=== PATIENT | male | born 1960 | race African-American/Black ===

== ENCOUNTER 2017-06-06 15:58 | Inpatient (IN) | payer MEDICARE, OTHER ==
[2017-06-06 16:20] VITALS: BMI 34.8
[2017-06-06] MEDS ORDERED: SODIUM CHLORIDE 1,000 ML IV STA ×3 (16:33→18:28)
--- NOTE | 2017-06-06 16:34 | PDOC ---
History of Present Illness - General Chief Complaint: Blood Sugar Problem Stated Complaint: BLOOD SUGAR PROBLEM Time Seen by Provider: 06/06/17 16:18 - History of Present Illness Initial Comments: 06/06/17 16:46 The patient is a 56 year old male with a history of DM who presents for evaluation of high blood sugar. The patient reports that he has not been taking his metformin over the past week and noted increased thirst and frequent urination over the past 2 days. He states that he was experiencing generalized weakness today prompting his presentation to the ED for evaluation. He was noted to have a blood sugar above range in triage here in the ED. He denies any history of DKA or similar symptoms in the past. He denies fevers, chills, SOB, chest pain, nausea, vomiting, abdominal pain, or changes with bowel movements. Past History - Past Medical History Allergies/Adverse Reactions: Allergies Allergy/AdvReac Type Severity Reaction Status Date / Time No Known Allergies Allergy Verified 06/06/17 16:17 Home Medications: Ambulatory Orders Unobtainable [Unobtainable] 06/06/17 COPD: No Diabetes: Yes Seizures: Yes - Suicide/Smoking/Psychosocial Hx Smoking History: Never smoked Have you smoked in the past 12 months: No Hx Alcohol Use: No Drug/Substance Use Hx: No Substance Use Type: None Review of Systems - Review of Systems Comments:: 06/06/17 16:49 Constitutional: Fatigue. Increased thirst. No fevers, chills, malaise HEENT: No Rhinorrhea, nasal congestion, visual changes Cardiovascular: No chest pain, syncope, palpitations, lightheadedness Respiratory: No Cough, SOB, Hemoptysis, Gastrointestinal: No Abdominal pain, Nausea, Vomiting, Constipation, Diarrhea, Melena Genitourinary: Increased frequency. No Dysuria, Urgency, Hesitancy, Hematuria, Flank pain Musculoskeletal: No Myalgia, arthralgia Skin: No rashes, itching, bruising, pallor Neurologic: No Headache, Dizziness, Numbness, Weakness, or Tingling Psychiatric: No Hallucinations. No SI or HI *Physical Exam - Vital Signs Last Vital Signs Temp Pulse Resp BP Pulse Ox 98.3 F 113 H 22 148/89 95 06/06/17 16:17 06/06/17 16:17 06/06/17 16:17 06/06/17 16:17 06/06/17 16:17 - Physical Exam Comments: 06/06/17 16:51 General Appearance: Nourished. No Apparent Distress HEENT: Dry mucus membranes. No Pharyngeal Erythema, Tonsillar Exudate, Tonsillar Erythema Neck: No Cervical Lymphadenopathy Respiratory/Chest: Lungs Clear, Normal Breath Sounds. No Crackles, Rales, Rhonchi, Wheezing Cardiovascular: Regular Rhythm, Regular Rate. No Murmur, Gallops, Rubs Gastrointestinal/Abdominal: Normal Bowel Sounds, Soft. No Guarding, Rebound, Tenderness Musculoskeletal: No CVA Tenderness Extremity: Normal Capillary Refill Integumentary: Normal Color, Dry, Warm Neurologic: Fully Oriented, Alert, Normal Mood/Affect, Normal Response Heart Score/ECG Review #1 ECG reviewed & interpreted by me at: 20:29 General ECG Interpretation: Sinus Rhythm, Normal Rate, Normal Intervals, No acute ischemic changes ED Treatment Course - LABORATORY CBC & Chemistry Diagram: 06/06/17 17:00 06/06/17 17:00 Medical Decision Making - Medical Decision Making 06/06/17 16:51 The patient is a 56 year old male with a history of DM who presents for evaluation of high blood sugar. Differential includes but is not limited to: DKA, HHS, Hyperglycemia, infectious, metabolic derangement. Given the patient' s history, it is likely his symptoms are due to hyperglycemia from medication non-compliance. We will obtain a cbc, cmp, troponin, acetone, ua, vbg to evaluate further. We will treat with iv fluids in the meantime and continue to monitor and reassess. 06/06/17 18:40 CBC is unremarkable. CMP demonstrates a glucose of 1300s with a sodium of 121 however sodium is normal when corrected for the extreme hyperglycemia. The patient's symptoms are likely due to HHS and we will continue to treat with iv fluids as well as begin with a 10 unit insulin push. We discussed the case with the hospitalist team who accepted the patient for admission. The patient is stable and does not demonstrate any signs of DKA or AMS. We discussed the results and the plan with the patient who voiced understanding and is agreeable with the plan. *DC/Admit/Observation/Transfer Diagnosis at time of Disposition: Hyperglycemia - Discharge Dispostion Condition at time of disposition: Stable Admit: Yes - Referrals - Patient Instructions - Post Discharge Activity
[2017-06-06 17:14] LABS: BASO % 0.4 % (0-2.0); EOS % 0.2 % (0-4.5); HEMATOCRIT 50.9 % (35.4-49); HEMOGLOBIN 16.2 GM/dL (11.7-16.9); LYMPH % 18.2 % (8-40); MCH 30.4 pg (25.7-33.7); MCHC 31.7 g/dl (32.0-35.9); MEAN CELL VOLUME 95.9 fl (80-96); MEAN PLT VOLUME 9.8 fl (7.5-11.1); MONO % 8.4 % (3.8-10.2); NEUT % 72.8 % (42.8-82.8); PLATELET COUNT 180 K/MM3 (134-434); RBC 5.31 M/mm3 (4.00-5.60); RDW 15.1 % (11.9-15.9); WHITE BLOOD COUNT 4.9 K/mm3 (4.0-10.0)
[2017-06-06 17:16] LABS: VENOUS PC02 32.6 mmHg (38-52); VENOUS PH 7.38 (7.32-7.42)
[2017-06-06 17:49] LABS: ANION GAP 10 (8-16); BILIRUBIN,TOTAL 0.9 mg/dL (0.2-1.0); BLOOD UREA NITROGEN 18 mg/dL (7-18); CHLORIDE 90 mmol/L (98-107); CO2 21 mmol/L (21-32); CREATININE 2.3 mg/dL (0.7-1.3); POTASSIUM 5.3 mmol/L (3.5-5.1); SGOT/AST 18 U/L (15-37); SGPT/ALT 30 U/L (12-78); TOT PROT 7.2 g/dl (6.4-8.2)
[2017-06-06 17:51] LABS: ALK PHOS 186 U/L (45-117)
[2017-06-06 18:08] LABS: GLUCOSE,RANDOM 1334 mg/dL (74-106); SODIUM 121 mmol/L (136-145)
[2017-06-06] MEDS ORDERED: INSULIN REGULAR HUMAN 100 UNITS/ML *VIAL IVPUSH ONE (18:27)
[2017-06-06] MEDS ORDERED: INSULIN REGULAR HUMAN 100 UNITS/ML *VIAL ONE (18:39)
--- NOTE | 2017-06-06 19:57 | PDOC ---
Attending Attestation - Resident Resident Name: KimmyPuneetCooper - ED Attending Attestation I have performed the following: I have examined & evaluated the patient, The case was reviewed & discussed with the resident, I agree w/resident's findings & plan, Exceptions are as noted - HPI HPI: 06/06/17 19:54 56 yo p/w hyperglycemia, he is not in any acute distress,he is not complaint with his medications head ncat eyes poly eomi neck supple cvs tachycardia lungs cta b/l abd nontender extremities no cellulitis neuro axox3 ,ambulatory skin warm and dry peych appropriate 06/07/17 02:44 - Physicial Exam PE: 06/07/17 02:43 please see physical exam above 06/07/17 02:51 - Medical Decision Making 06/07/17 02:52 56 yo male with hyperosmolar hyperglycemic state admitted
--- NOTE | 2017-06-06 20:47 | HP ---
CHIEF COMPLAINT: increased thirst, urination PCP: Henrietta Estrada HISTORY OF PRESENT ILLNESS: This is a 56 year old male with a significant past medical history of DM who reports that he has not been taking his metformin for "a while" who presented to the ED with a 2 day history of increased thirst and frequent urination. He developed generalized weakness today which prompted him to come to the ED. ER course was notable for: (1) glucose 1334 (2) Creatinine 2.3 Recent Travel: pt denies PAST MEDICAL HISTORY: DM, seizure disorder, asthma PAST SURGICAL HISTORY: pt denies Social History: Smoking: pt denies Alcohol: pt denies Drugs: pt denies Family History: mother age 50, lupus vasculitis father in his 70s, liver CA one brother, unknown if medical problems Allergies No Known Allergies Allergy (Verified 06/06/17 16:17) Home Medications 3 Medication Instructions Recorded Carbamazepine [Tegretol -] 200 mg PO TID 06/06/17 Ipratropium/Albuterol Sulfate 4 gm IH QID PRN 06/06/17 [Combivent Respimat Inhal [place]] Metformin HCl [Glucophage] 0 mg PO DAILY 06/06/17 Salmeterol/Fluticasone [Advair 1 inh IH BID 06/06/17 500Mcg/50Mcg -] REVIEW OF SYSTEMS CONSTITUTIONAL: Present: generalized weakness, malaise Absent: fever, chills, diaphoresis, loss of appetite, weight change HEENT: Absent: rhinorrhea, nasal congestion, throat pain, throat swelling, difficulty swallowing, mouth swelling, ear pain, eye pain, visual changes CARDIOVASCULAR: Absent: chest pain, syncope, palpitations, irregular heart rate, lightheadedness , peripheral edema RESPIRATORY: Absent: cough, shortness of breath, dyspnea with exertion, orthopnea, wheezing, stridor, hemoptysis GASTROINTESTINAL: Absent: abdominal pain, abdominal distension, nausea, vomiting, diarrhea, constipation, melena, hematochezia GENITOURINARY: Present: frequency Absent: dysuria, urgency, hesitancy, hematuria, flank pain, genital pain MUSCULOSKELETAL: Absent: myalgia, arthralgia, joint swelling, back pain, neck pain SKIN: Absent: rash, itching, pallor HEMATOLOGIC/IMMUNOLOGIC: Absent: easy bleeding, easy bruising, lymphadenopathy, frequent infections ENDOCRINE: Present: Polydypsia Absent: unexplained weight gain, unexplained weight loss, heat intolerance, cold intolerance NEUROLOGIC: Absent: headache, focal weakness or paresthesias, dizziness, unsteady gait, seizure, mental status changes, bladder or bowel incontinence PSYCHIATRIC: Absent: anxiety, depression, suicidal or homicidal ideation, hallucinations. PHYSICAL EXAMINATION Vital Signs - 24 hr 3 06/06/17 06/06/17 06/06/17 16:17 18:20 19:35 Temperature 98.3 F Pulse Rate 113 H Pulse Rate [ 97 H 88 Radial] Respiratory 22 22 22 Rate Blood Pressure 148/89 Blood Pressure 163/104 130/90 [Right Arm] O2 Sat by Pulse 95 97 95 Oximetry (%) GENERAL: Awake, alert, and fully oriented, in no acute distress. HEAD: Normal with no signs of trauma. EYES: Pupils equal, round and reactive to light, extraocular movements intact, sclera anicteric, conjunctiva clear. No lid lag. EARS, NOSE, THROAT: Ears normal, nares patent, oropharynx clear without exudates. Moist mucous membranes. NECK: Normal range of motion, supple without lymphadenopathy, JVD, or masses. LUNGS: Breath sounds equal, clear to auscultation bilaterally. No wheezes, and no crackles. No accessory muscle use. HEART: Regular rate and rhythm, normal S1 and S2 without murmur, rub or gallop. ABDOMEN: Soft, nontender, not distended, normoactive bowel sounds, no guarding, no rebound, no masses. No hepatomegaly or splenomegaly. MUSCULOSKELETAL: Normal range of motion at all joints. No bony deformities or tenderness. No CVA tenderness. UPPER EXTREMITIES: 2+ pulses, warm, well-perfused. No cyanosis. No clubbing. No peripheral edema. LOWER EXTREMITIES: 2+ pulses, warm, well-perfused. No calf tenderness. No peripheral edema. NEUROLOGICAL: Cranial nerves II-XII intact. Normal speech. Normal gait. PSYCHIATRIC: Cooperative. Good eye contact. Appropriate mood and affect. SKIN: Warm, dry, normal turgor, no rashes or lesions noted, normal capillary refill. Laboratory Results - last 24 hr 3 06/06/17 06/06/17 06/06/17 16:41 16:41 17:00 WBC 4.9 RBC 5.31 Hgb 16.2 Hct 50.9 H MCV 95.9 MCH 30.4 MCHC 31.7 L RDW 15.1 Plt Count 180 MPV 9.8 Neutrophils % 72.8 Lymphocytes % 18.2 Monocytes % 8.4 Eosinophils % 0.2 Basophils % 0.4 VBG pH 7.38 POC VBG pCO2 32.6 L POC VBG pO2 107.0 H Mixed VBG HCO3 18.9 L Sodium Potassium Chloride Carbon Dioxide Anion Gap BUN Creatinine Creat Clearance w eGFR Random Glucose Calcium Total Bilirubin AST ALT Alkaline Phosphatase Creatine Kinase Creatine Kinase Index CK-MB (CK-2) Troponin I Total Protein Albumin Acetone, Qual Positive small 1+ ASSESSMENT/PLAN: 56yM with PMH DM, Seizure, asthma presented to the ED with polydypsia, increased urinary frequency and generalized weakness. Hyperosmolar hyperglycemic state - received 3L NS in ed, 10 reg insulin IVP - BGM now revealed "HI", check BMP - 1/2 NS @ 250cc/hr - repeat K, if less than 5, add 20mEq KCl to fluids - novolog 10u SC now, repeat BGM in 2 hours, if still "hi" repeat BMP - if not responding to insulin SC, transfer to ICU for insulin drip - hold meal until sugar below 400 seizure - continue home tegretol asthma - home respimat combivent changed to formulary duoneb - home advair changed to formulary symbicort DVT PPX - heparin 5000u TID FEN - 1/2NS @ 250cc/hr, reassess with next BGM/BMP - BMP in 2h if BGM still hi - diabetic diet when BGM less than 400. Dispo: Pt currently requires inpatient management of his emergent condition. Hospitalist Screening - Colonoscopy Questionnaire Colonoscopy Questionnaire: Colonoscopy Questionnaire
[2017-06-06] MEDS ORDERED: ALBUTEROL SO4 2.5/IPRATROPIUM 0.5 INH SOL 3 ML VIAL.NEB. NEB PRN (20:57)
[2017-06-06] MEDS ORDERED: SODIUM CHLORIDE 1,000 ML IV SCH (21:00)
[2017-06-06] MEDS ORDERED: INSULIN (NOVOLOG) ASPART 100 UNITS/ML 10ML VIAL SQ ONE (21:00)
[2017-06-06] MEDS ORDERED: SODIUM CHLORIDE 0.45% 1,000 ML IV SCH (21:15)
[2017-06-06 21:40] LABS: ANION GAP 9 (8-16); BLOOD UREA NITROGEN 15 mg/dL (7-18); CHLORIDE 98 mmol/L (98-107); CO2 22 mmol/L (21-32); CREATININE 1.9 mg/dL (0.7-1.3); SODIUM 129 mmol/L (136-145)
[2017-06-06 21:42] LABS: POTASSIUM 4.8 mmol/L (3.5-5.1)
[2017-06-06 21:44] LABS: GLUCOSE,RANDOM 848 mg/dL (74-106)
[2017-06-06] MEDS ORDERED: SODIUM CHLORIDE 0.45%/POT 20 MEQ/1,000 ML INFUS.BAG IV SCH (22:00)
[2017-06-06] MEDS: POTASSIUM CHLORIDE 20 MEQ in SODIUM CHLORIDE 0.45% 1,000 ML IVPB SCH (23:32)
[2017-06-06] MEDS: carBAMazepine 200 MG TABLET PO SCH (23:32)
[2017-06-06] MEDS: BUDESONIDE/FORMETEROL FUMARATE 160/4.5 mcg INHALER IH SCH (23:32)
[2017-06-07] MEDS ORDERED: INSULIN (NOVOLOG) ASPART 100 UNITS/ML 10ML VIAL SQ ONE ×2 (00:23→02:38)
[2017-06-07 00:50] LABS: ANION GAP 12 (8-16); BLOOD UREA NITROGEN 13 mg/dL (7-18); CALCIUM 8.6 mg/dL (8.5-10.1); CHLORIDE 99 mmol/L (98-107); CO2 23 mmol/L (21-32); CREATININE 1.4 mg/dL (0.7-1.3); POTASSIUM 4.2 mmol/L (3.5-5.1); SODIUM 134 mmol/L (136-145)
[2017-06-07 00:58] LABS: GLUCOSE,RANDOM 516 mg/dL (74-106)
[2017-06-07] MEDS: POTASSIUM CHLORIDE 20 MEQ in SODIUM CHLORIDE 0.45% 1,000 ML IVPB SCH ×4 (03:33→22:53)
[2017-06-07] MEDS ORDERED: POTASSIUM CHLORIDE 20 MEQ in SODIUM CHLORIDE 0.45% 1,000 ML IVPB SCH (05:09)
[2017-06-07] MEDS: HEPARIN NA (PORCINE) 5,000 UNITS/ML 1ML VIAL SQ SCH ×3 (06:40→23:05)
[2017-06-07] MEDS: carBAMazepine 200 MG TABLET PO SCH ×4 (06:41→23:30)
[2017-06-07 07:14] LABS: BASO % 0.7 % (0-2.0); EOS % 1.5 % (0-4.5); HEMATOCRIT 47.5 % (35.4-49); HEMOGLOBIN 15.8 GM/dL (11.7-16.9); LYMPH % 43.4 % (8-40); MCH 30.1 pg (25.7-33.7); MCHC 33.3 g/dl (32.0-35.9); MEAN CELL VOLUME 90.5 fl (80-96); NEUT % 45.4 % (42.8-82.8); PLATELET COUNT 175 K/MM3 (134-434); RBC 5.25 M/mm3 (4.00-5.60); RDW 14.6 % (11.9-15.9); WHITE BLOOD COUNT 7.9 K/mm3 (4.0-10.0)
[2017-06-07 07:28] LABS: ANION GAP 11 (8-16); BLOOD UREA NITROGEN 11 mg/dL (7-18); CALCIUM 8.2 mg/dL (8.5-10.1); CHLORIDE 105 mmol/L (98-107); CO2 24 mmol/L (21-32); CREATININE 1.1 mg/dL (0.7-1.3); GLUCOSE,RANDOM 147 mg/dL (74-106); MAGNESIUM 2.2 mg/dL (1.8-2.4); PHOSPHOROUS 2.9 mg/dL (2.5-4.9); POTASSIUM 3.7 mmol/L (3.5-5.1); SODIUM 140 mmol/L (136-145)
--- NOTE | 2017-06-07 08:41 | PN ---
Progress Note, Physician History of Present Illness: POOR COMPLIANCE WITH DIET AND MEDS - Current Medication List Current Medications: Active Medications Albuterol/Ipratropium (Duoneb -) 1 amp NEB Q6H PRN PRN Reason: WHEEZING Budesonide/Formoterol Fumarate (Symbicort 160/4.5mcg -) 2 puff IH BID [facility] Last Admin: 06/06/17 23:32 Dose: 2 puff Carbamazepine (Tegretol -) 200 mg PO TID [facility] Last Admin: 06/07/17 06:41 Dose: 200 mg Heparin Sodium (Porcine) (Heparin -) 5,000 unit SQ TID [facility] Last Admin: 06/07/17 06:40 Dose: 5,000 unit Potassium Chloride 20 meq/ (Sodium Chloride) 1,010 mls @ 125 mls/hr IVPB Q8H [facility] Last Admin: 06/07/17 05:45 Dose: Not Given Insulin Aspart (Novolog Vial Sliding Scale -) 1 vial SQ HS [facility] PRN Reason: Protocol Insulin Aspart (Novolog Vial Sliding Scale -) 1 vial SQ TIDAC [facility] PRN Reason: Protocol Insulin Detemir (Levemir Vial) 5 units SQ BID@0700,2200 [facility] - Objective Vital Signs: Vital Signs Temperature 98.6 F 06/07/17 06:00 Pulse Rate 82 06/07/17 06:00 Respiratory Rate 18 06/07/17 06:00 Blood Pressure 140/80 06/07/17 06:00 O2 Sat by Pulse Oximetry (%) 99 06/06/17 21:00 Cardiovascular: Yes: Regular Rate and Rhythm Respiratory: Yes: Regular, CTA Bilaterally Gastrointestinal: Yes: Normal Bowel Sounds, Soft Labs: CBC, BMP 06/07/17 06:35 06/07/17 06:35 Problem List - Problems (1) Diabetes Assessment/Plan: POOR CONTROL DUE TO NONCOMPLIANCE INSULIN WITH SS ENDO DIET Code(s): E11.9 - TYPE 2 DIABETES MELLITUS WITHOUT COMPLICATIONS (2) Acute kidney injury Assessment/Plan: IMPROVING WITH HYDRATION FOLLOW LABS Code(s): N17.9 - ACUTE KIDNEY FAILURE, UNSPECIFIED (3) Hyperglycemia Assessment/Plan: ABOVE Code(s): R73.9 - HYPERGLYCEMIA, UNSPECIFIED
[2017-06-07] MEDS: INSULIN DETEMIR 100 UNITS/ML MDV SQ SCH ×2 (08:49→23:05)
[2017-06-07] MEDS: BUDESONIDE/FORMETEROL FUMARATE 160/4.5 mcg INHALER IH SCH ×2 (09:30→23:06)
--- NOTE | 2017-06-07 10:33 | EKG ---
Test Reason : Blood Pressure : / mmHG Vent. Rate : 074 BPM Atrial Rate : 074 BPM P-R Int : 184 ms QRS Dur : 092 ms QT Int : 410 ms P-R-T Axes : 051 003 032 degrees QTc Int : 455 ms NORMAL SINUS RHYTHM INFERIOR INFARCT (CITED ON OR BEFORE 06-JUN-2017) ABNORMAL ECG WHEN COMPARED WITH ECG OF 06-JUN-2017 18:03, BORDERLINE CRITERIA FOR ANTERIOR INFARCT ARE NO LONGER PRESENT NONSPECIFIC T WAVE ABNORMALITY NOW EVIDENT IN LATERAL LEADS Confirmed by KATY ALCANTAR, TERRI ([id number]) on 06/07/2017 10:33:05 AM Referred By: DEBBY CARBONE Confirmed By:TERRI BURNS MD
--- NOTE | 2017-06-07 11:40 | EKG ---
Test Reason : Blood Pressure : / mmHG Vent. Rate : 100 BPM Atrial Rate : 100 BPM P-R Int : 198 ms QRS Dur : 104 ms QT Int : 364 ms P-R-T Axes : 043 -09 019 degrees QTc Int : 469 ms NORMAL SINUS RHYTHM POSSIBLE LEFT ATRIAL ENLARGEMENT INFERIOR INFARCT , AGE UNDETERMINED POSSIBLE ANTERIOR INFARCT , AGE UNDETERMINED ABNORMAL ECG NO PREVIOUS ECGS AVAILABLE Confirmed by TERRI BURNS MD ([id number]) on 06/07/2017 11:40:23 AM Referred By: Confirmed By:TERRI BURNS MD
[2017-06-07 11:42] LABS: CHOLESTEROL 101 mg/dL (50-200); TRIGLYCERIDES 223 mg/dL (35-160)
[2017-06-07 11:45] LABS: HDL CHOLESTEROL 25 mg/dL (40-60); LDL CHOLESTEROL (ONLY SJRH) 57 mg/dL (5-100)
[2017-06-07] MEDS: INSULIN SLIDING SCALE (NOVOLOG) 1 VIAL SQ SCH ×3 (12:06→23:06)
[2017-06-07] MEDS ORDERED: PT OWN MED DRAWER 7, Y5N ONE ×2 (13:45→22:03)
--- NOTE | 2017-06-07 23:47 | CONSULT ---
Consult Consult Specialty:: endocrine Referred by:: dr.[email or web address] perales Reason for Consultation:: diabetes mellitus [place] - History of Present Illness Chief Complaint: high blood sugars History of Present Illness: 56 year old male with a history of DM who presents for evaluation of high blood sugar. The patient reports that he has not been taking his metformin over the past week and noted increased thirst and frequent urination over the past 2 days. He states that he was experiencing generalized weakness today prompting to present to er for help.found to have very high sugars,requiring iv fluid and rehydration as well as insulin therapy,he denies nausea or vomiting - History Source History Provided By: Patient - Alcohol/Substance Use Hx Alcohol Use: No - Smoking History Smoking history: Never smoked Have you smoked in the past 12 months: No Home Medications - Allergies Allergies/Adverse Reactions: Allergies Allergy/AdvReac Type Severity Reaction Status Date / Time No Known Allergies Allergy Verified 06/06/17 16:17 - Home Medications Home Medications: Ambulatory Orders Carbamazepine [Tegretol -] 200 mg PO TID 06/06/17 Ipratropium/Albuterol Sulfate [Combivent Respimat Inhal [place]] 4 gm IH QID PRN 06/06/17 Metformin HCl [Glucophage] 0 mg PO DAILY 06/06/17 Salmeterol/Fluticasone [Advair 500Mcg/50Mcg -] 1 inh IH BID 06/06/17 Review of Systems - Review of Systems Constitutional: reports: Lethargy, Weakness Eyes: reports: Blurred Vision HENT: reports: Throat Pain Neck: reports: No Symptoms Cardiovascular: reports: Shortness of Breath Respiratory: reports: Exercise Intolerance, SOB on Exertion Gastrointestinal: reports: Bloating Genitourinary: reports: No Symptoms Breasts: reports: No Symptoms Reported Musculoskeletal: reports: No Symptoms Integumentary: reports: No Symptoms Neurological: reports: No Symptoms Endocrine: reports: Unexplained Weight Gain Physical Exam Vital Signs: Vital Signs Temperature 98.6 F 06/07/17 20:44 Pulse Rate 81 06/07/17 20:44 Respiratory Rate 18 06/07/17 20:44 Blood Pressure 152/94 06/07/17 20:44 O2 Sat by Pulse Oximetry (%) 97 06/07/17 20:43 Constitutional: Yes: Anxious Eyes: Yes: EOM Intact HENT: Yes: Normocephalic Neck: Yes: Trachea Midline Cardiovascular: Yes: Regular Rate and Rhythm Respiratory: Yes: CTA Bilaterally Gastrointestinal: Yes: Normal Bowel Sounds ...Rectal Exam: Yes: Deferred Renal/: Yes: WNL Breast(s): Yes: WNL Musculoskeletal: Yes: WNL Extremities: Yes: WNL Integumentary: Yes: WNL Neurological: Yes: Alert, Oriented Labs: CBC, BMP 06/07/17 06:35 06/07/17 06:35 Problem List - Problems (1) Diabetes Code(s): E11.9 - TYPE 2 DIABETES MELLITUS WITHOUT COMPLICATIONS Qualifiers: Diabetes mellitus complication status: with circulatory complication (2) Hyperglycemia Code(s): R73.9 - HYPERGLYCEMIA, UNSPECIFIED (3) Knee sprain Code(s): S83.90XA - SPRAIN OF UNSPECIFIED SITE OF UNSPECIFIED KNEE, INIT ENCNTR Assessment/Plan Current Active Problems Acute kidney injury (Acute) Diabetes (Acute) Hyperglycemia (Acute) n[place]os dehydration Abnormal Lab Results 06/06/17 06/06/17 06/07/17 23:30 23:30 06:35 Lymphocytes % 43.4 H D Sodium 134 L Creatinine 1.4 H D Random Glucose 526 H* D 516 H* Hemoglobin A1c % Calcium Triglycerides HDL Cholesterol 06/07/17 06/07/17 06:35 06:35 Lymphocytes % Sodium Creatinine Random Glucose 147 H D Hemoglobin A1c % 9.5 H Calcium 8.2 L Triglycerides 223 H HDL Cholesterol 25 L Laboratory Results - last 24 hr 06/06/17 06/06/17 06/06/17 16:33 19:27 20:29 WBC RBC Hgb Hct MCV MCH MCHC RDW Plt Count MPV Neutrophils % Lymphocytes % Monocytes % Eosinophils % Basophils % Sodium Potassium Chloride Carbon Dioxide Anion Gap BUN Creatinine POC Glucometer > 400 > 400 > 600 Random Glucose Hemoglobin A1c % Calcium Phosphorus Magnesium Creatine Kinase Creatine Kinase Index CK-MB (CK-2) Troponin I Triglycerides Cholesterol Total LDL Cholesterol HDL Cholesterol Acetone, Qual 06/06/17 06/06/17 06/07/17 23:30 23:30 02:34 WBC RBC Hgb Hct MCV MCH MCHC RDW Plt Count MPV Neutrophils % Lymphocytes % Monocytes % Eosinophils % Basophils % Sodium 134 L Potassium 4.2 Chloride 99 Carbon Dioxide 23 Anion Gap 12 BUN 13 Creatinine 1.4 H D POC Glucometer 355 Random Glucose 526 H* D 516 H* Hemoglobin A1c % Calcium 8.6 Phosphorus Magnesium Creatine Kinase Creatine Kinase Index CK-MB (CK-2) Troponin I Triglycerides Cholesterol Total LDL Cholesterol HDL Cholesterol Acetone, Qual 06/07/17 06/07/17 06/07/17 05:00 06:35 06:35 WBC 7.9 D RBC 5.25 Hgb 15.8 Hct 47.5 MCV 90.5 MCH 30.1 MCHC 33.3 RDW 14.6 Plt Count 175 MPV 9.0 Neutrophils % 45.4 D Lymphocytes % 43.4 H D Monocytes % 9.0 Eosinophils % 1.5 D Basophils % 0.7 Sodium 140 Potassium 3.7 Chloride 105 Carbon Dioxide 24 Anion Gap 11 BUN 11 Creatinine 1.1 D POC Glucometer 167 Random Glucose 147 H D Hemoglobin A1c % Calcium 8.2 L Phosphorus 2.9 Magnesium 2.2 Creatine Kinase 287 Creatine Kinase Index 0.9 CK-MB (CK-2) 2.748 Troponin I < 0.02 Triglycerides 223 H Cholesterol 101 Total LDL Cholesterol 57 HDL Cholesterol 25 L Acetone, Qual 06/07/17 06/07/17 06/07/17 06:35 06:43 09:00 WBC RBC Hgb Hct MCV MCH MCHC RDW Plt Count MPV Neutrophils % Lymphocytes % Monocytes % Eosinophils % Basophils % Sodium Potassium Chloride Carbon Dioxide Anion Gap BUN Creatinine POC Glucometer 141 Random Glucose Hemoglobin A1c % 9.5 H Calcium Phosphorus Magnesium Creatine Kinase Cancelled Creatine Kinase Index CK-MB (CK-2) Troponin I Cancelled Triglycerides Cancelled Cholesterol Cancelled Total LDL Cholesterol Cancelled HDL Cholesterol Cancelled Acetone, Qual Negative 06/07/17 06/07/17 06/07/17 11:03 17:24 23:03 WBC RBC Hgb Hct MCV MCH MCHC RDW Plt Count MPV Neutrophils % Lymphocytes % Monocytes % Eosinophils % Basophils % Sodium Potassium Chloride Carbon Dioxide Anion Gap BUN Creatinine POC Glucometer 226 380 366 Random Glucose Hemoglobin A1c % Calcium Phosphorus Magnesium Creatine Kinase Creatine Kinase Index CK-MB (CK-2) Troponin I Triglycerides Cholesterol Total LDL Cholesterol HDL Cholesterol Acetone, Qual plan: diet nutrition consult metformin 850mg bid januvia 100mg daily levemir 25 units daily bgm qid novolog ss
[2017-06-08] MEDS: POTASSIUM CHLORIDE 20 MEQ in SODIUM CHLORIDE 0.45% 1,000 ML IVPB SCH ×3 (06:28→21:11)
[2017-06-08] MEDS: HEPARIN NA (PORCINE) 5,000 UNITS/ML 1ML VIAL SQ SCH ×3 (06:30→21:16)
[2017-06-08] MEDS: INSULIN DETEMIR 100 UNITS/ML MDV SQ SCH ×2 (06:31→21:16)
[2017-06-08] MEDS: sitaGLIPtin PHOSPHATE 100 MG TABLET (FP) PO SCH (06:33)
[2017-06-08] MEDS: INSULIN SLIDING SCALE (NOVOLOG) 1 VIAL SQ SCH ×4 (06:33→21:16)
[2017-06-08 06:35] LABS: BASO % 0.8 % (0-2.0); EOS % 4.2 % (0-4.5); HEMATOCRIT 44.2 % (35.4-49); HEMOGLOBIN 15.1 GM/dL (11.7-16.9); LYMPH % 47.3 % (8-40); MCH 30.9 pg (25.7-33.7); MCHC 34.1 g/dl (32.0-35.9); MEAN CELL VOLUME 90.6 fl (80-96); MEAN PLT VOLUME 9.5 fl (7.5-11.1); MONO % 6.7 % (3.8-10.2); PLATELET COUNT 158 K/MM3 (134-434); RBC 4.87 M/mm3 (4.00-5.60); RDW 14.3 % (11.9-15.9); WHITE BLOOD COUNT 5.5 K/mm3 (4.0-10.0)
[2017-06-08 06:57] LABS: ALBUMIN 3.5 g/dl (3.4-5.0); ANION GAP 12 (8-16); BLOOD UREA NITROGEN 13 mg/dL (7-18); CALCIUM 8.4 mg/dL (8.5-10.1); CHLORIDE 103 mmol/L (98-107); CO2 22 mmol/L (21-32); CREATININE 1.1 mg/dL (0.7-1.3); GLUCOSE,RANDOM 239 mg/dL (74-106); SGOT/AST 26 U/L (15-37); SGPT/ALT 27 U/L (12-78); SODIUM 137 mmol/L (136-145)
[2017-06-08 06:59] LABS: ALK PHOS 117 U/L (45-117); BILIRUBIN,TOTAL 0.7 mg/dL (0.2-1.0); TOT PROT 6.6 g/dl (6.4-8.2)
--- NOTE | 2017-06-08 08:50 | PN ---
Progress Note, Physician - Current Medication List Current Medications: Active Medications Albuterol/Ipratropium (Duoneb -) 1 amp NEB Q6H PRN PRN Reason: WHEEZING Budesonide/Formoterol Fumarate (Symbicort 160/4.5mcg -) 2 puff IH BID [facility] Last Admin: 06/07/17 23:06 Dose: 2 puff Carbamazepine (Tegretol -) 200 mg PO TID [facility] Last Admin: 06/07/17 23:30 Dose: 200 mg Heparin Sodium (Porcine) (Heparin -) 5,000 unit SQ TID [facility] Last Admin: 06/08/17 06:30 Dose: 5,000 unit Potassium Chloride 20 meq/ (Sodium Chloride) 1,010 mls @ 125 mls/hr IVPB Q8H [facility] Last Admin: 06/08/17 06:28 Dose: Not Given Insulin Aspart (Novolog Vial Sliding Scale -) 1 vial SQ HS [facility] PRN Reason: Protocol Last Admin: 06/07/17 23:06 Dose: 6 units Insulin Aspart (Novolog Vial Sliding Scale -) 1 vial SQ TIDAC [facility] PRN Reason: Protocol Last Admin: 06/08/17 06:33 Dose: 3 units Insulin Detemir (Levemir Vial) 20 units SQ BID@0700,2200 [facility] Last Admin: 06/08/17 06:31 Dose: 20 units Metformin HCl (Glucophage -) 850 mg PO BID@0700,1630 [facility] Last Admin: 06/08/17 06:30 Dose: 850 mg Sitagliptin Phosphate (Januvia -) 100 mg PO DAILY@0700 [facility] Last Admin: 06/08/17 06:33 Dose: 100 mg - Objective Vital Signs: Vital Signs Temperature 97.3 F L 06/08/17 02:44 Pulse Rate 78 06/08/17 06:00 Respiratory Rate 18 06/08/17 06:00 Blood Pressure 140/92 06/08/17 06:00 O2 Sat by Pulse Oximetry (%) 97 06/07/17 20:43 Cardiovascular: Yes: Regular Rate and Rhythm Respiratory: Yes: Regular, CTA Bilaterally Gastrointestinal: Yes: Normal Bowel Sounds, Soft Labs: CBC, BMP 06/08/17 06:05 06/08/17 06:05 Problem List - Problems (1) Diabetes Assessment/Plan: POOR CONTROL DUE TO NONCOMPLIANCE INSULIN WITH SS ENDO DIET DIABETIC TEACHING Code(s): E11.9 - TYPE 2 DIABETES MELLITUS WITHOUT COMPLICATIONS Qualifiers: Diabetes mellitus complication status: with circulatory complication (2) Acute kidney injury Assessment/Plan: IMPROVING WITH HYDRATION FOLLOW LABS Code(s): N17.9 - ACUTE KIDNEY FAILURE, UNSPECIFIED (3) Hyperglycemia Assessment/Plan: ABOVE Code(s): R73.9 - HYPERGLYCEMIA, UNSPECIFIED (4) Abnormal EKG Assessment/Plan: ECHO CARDIO Code(s): R94.31 - ABNORMAL ELECTROCARDIOGRAM [ECG] [EKG]
[2017-06-08] MEDS ORDERED: PT OWN MED DRAWER 7, Y5N ONE (09:32)
[2017-06-08] MEDS: BUDESONIDE/FORMETEROL FUMARATE 160/4.5 mcg INHALER IH SCH ×2 (09:34→21:20)
[2017-06-08] MEDS: carBAMazepine 200 MG TABLET PO SCH ×2 (14:49→21:16)
[2017-06-08] MEDS ORDERED: INSULIN (NOVOLOG) ASPART 100 UNITS/ML 10ML VIAL ONE (14:56)
--- NOTE | 2017-06-08 16:29 | CON.CARD ---
Consult Consult Specialty:: Cardiology Consult Reason for Consultation:: Abnormal EKG - History of Present Illness Chief Complaint: High sugars History of Present Illness: This is a 56 year old male with a PMH of DM, HTN, and seizure disorder. He presents now with generalized weakness, increased thirst and frequent urination over the past 2 days. Of note, he stated to me that he jogs 3 miles daily. EKG 06/07/17 - NSR at 74 BPM with normal intervals, normal axis, and NSSTTW changes. There are inferior Q-waves noted. Echocardiogram 06/08/17 - Normal LV size and function. Normal RV size and function. The EF is 73%. No significant valvular abnormalities. - Alcohol/Substance Use Hx Alcohol Use: No - Smoking History Smoking history: Never smoked Have you smoked in the past 12 months: No Home Medications - Allergies Allergies/Adverse Reactions: Allergies Allergy/AdvReac Type Severity Reaction Status Date / Time No Known Allergies Allergy Verified 06/06/17 16:17 - Home Medications Home Medications: Ambulatory Orders Carbamazepine [Tegretol -] 200 mg PO TID 06/06/17 Ipratropium/Albuterol Sulfate [Combivent Respimat Inhal [place]] 4 gm IH QID PRN 06/06/17 Metformin HCl [Glucophage] 0 mg PO DAILY 06/06/17 Salmeterol/Fluticasone [Advair 500Mcg/50Mcg -] 1 inh IH BID 06/06/17 Review of Systems Findings/Remarks: As per HPI Vital Signs: Vital Signs Temperature 98.3 F 06/08/17 10:00 Pulse Rate 78 06/08/17 10:00 Respiratory Rate 20 06/08/17 10:00 Blood Pressure 132/80 06/08/17 10:00 O2 Sat by Pulse Oximetry (%) 97 06/08/17 09:00 Constitutional: Yes: Well Nourished Neck: Yes: WNL Respiratory: Yes: CTA Bilaterally Gastrointestinal: Yes: Soft Cardiovascular: Yes: Regular Rate and Rhythm (NL S1S2, no MRHG) JVD: No Extremities: Yes: WNL Edema: No Edema: RLE: Trace Neurological: Yes: Alert, Oriented (Non focal) - Other Data Labs, Other Data: CBC, BMP 06/08/17 06:05 06/08/17 06:05 Assessment/Plan Cardiovascular By history, he jogs 3 miles daily without cardiac symptoms. His echocardiogram shows a normal with normal LV and RV size and function. His EKG does have a somewhat prominent Q-wave in lead III, but less significant Q-waves in II and aVF. Given his lack of cardiac symptoms and normal echocardiogram, no further inpatient cardiac testing is needed at this time. Would consider outpatient stress testing when stable from a blood glucose standpoint.
[2017-06-09] MEDS: POTASSIUM CHLORIDE 20 MEQ in SODIUM CHLORIDE 0.45% 1,000 ML IVPB SCH (06:42)
[2017-06-09] MEDS: HEPARIN NA (PORCINE) 5,000 UNITS/ML 1ML VIAL SQ SCH (06:52)
[2017-06-09] MEDS: sitaGLIPtin PHOSPHATE 100 MG TABLET (FP) PO SCH (06:53)
[2017-06-09] MEDS: carBAMazepine 200 MG TABLET PO SCH (06:53)
[2017-06-09] MEDS: INSULIN SLIDING SCALE (NOVOLOG) 1 VIAL SQ SCH ×2 (06:53→12:16)
[2017-06-09] MEDS ORDERED: INSULIN DETEMIR 100 UNITS/ML MDV SQ SCH ×2 (07:00→07:09)
[2017-06-09] MEDS: BUDESONIDE/FORMETEROL FUMARATE 160/4.5 mcg INHALER IH SCH (09:20)
--- NOTE | 2017-06-09 10:59 | DS ---
Physical Examination Vital Signs: Vital Signs Temperature 97.8 F 06/09/17 05:58 Pulse Rate 74 06/09/17 05:58 Respiratory Rate 20 06/09/17 05:58 Blood Pressure 107/57 06/09/17 05:58 O2 Sat by Pulse Oximetry (%) 97 06/08/17 21:00 Cardiovascular: Yes: Regular Rate and Rhythm Respiratory: Yes: Regular, CTA Bilaterally Gastrointestinal: Yes: Normal Bowel Sounds, Soft Labs: CBC, BMP 06/08/17 06:05 06/08/17 06:05 Discharge Summary Reason For Visit: HYPERGLYCEMIA Current Active Problems Abnormal EKG (Acute) Acute kidney injury (Acute) Diabetes (Acute) Hyperglycemia (Acute) Hospital Course: HISTORY OF PRESENT ILLNESS: This is a 56 year old male with a significant past medical history of DM who reports that he has not been taking his metformin for "a while" who presented to the ED with a 2 day history of increased thirst and frequent urination. He developed generalized weakness today which prompted him to come to the ED. ER course was notable for: (1) glucose 1334 (2) Creatinine 2.3 Recent Travel: pt denies PAST MEDICAL HISTORY: DM, seizure disorder, asthma PAST SURGICAL HISTORY: pt denies Social History: Smoking: pt denies Alcohol: pt denies Drugs: pt denies Family History: mother age 50, lupus vasculitis father in his 70s, liver CA one brother, unknown if medical problems - Problems (1) Diabetes Assessment/Plan: POOR CONTROL DUE TO NONCOMPLIANCE--now better control INSULIN WITH SS ENDO DIET DIABETIC TEACHING Code(s): E11.9 - TYPE 2 DIABETES MELLITUS WITHOUT COMPLICATIONS Qualifiers: Diabetes mellitus complication status: with circulatory complication (2) Acute kidney injury Assessment/Plan: IMPROVING WITH HYDRATION FOLLOW LABS Code(s): N17.9 - ACUTE KIDNEY FAILURE, UNSPECIFIED (3) Hyperglycemia Assessment/Plan: ABOVE Code(s): R73.9 - HYPERGLYCEMIA, UNSPECIFIED (4) Abnormal EKG Assessment/Plan: ECHO CARDIO By history, he jogs 3 miles daily without cardiac symptoms. His echocardiogram shows a normal with normal LV and RV size and function. His EKG does have a somewhat prominent Q-wave in lead III, but less significant Q-waves in II and aVF. Given his lack of cardiac symptoms and normal echocardiogram, no further inpatient cardiac testing is needed at this time. Would consider outpatient stress testing when stable from a blood glucose standpoint. Code(s): R94.31 - ABNORMAL ELECTROCARDIOGRAM [ECG] [EKG] Condition: Stable - Instructions Referrals: Mc Estrada MD, [Primary Care Provider] - 1 Week Disposition: HOME - Home Medications Comprehensive Discharge Medication List: Ambulatory Orders Carbamazepine [Tegretol -] 200 mg PO TID 06/06/17 Ipratropium/Albuterol Sulfate [Combivent Respimat Inhal [place]] 4 gm IH QID PRN 06/06/17 Salmeterol/Fluticasone [Advair 500Mcg/50Mcg -] 1 inh IH BID 06/06/17 Insulin (Levemir) [Levemir Vial] 28 units SQ BID@0700,2200 #5 syringe 06/09/17 Sitagliptin Phosphate [Januvia -] 100 mg PO DAILY@0700 #30 ud 06/09/17 metFORMIN HCL [Glucophage -] 850 mg PO BID@0700,1630 #60 tablet 06/09/17
[2017-06-09 12:33] LABS: ALBUMIN 3.5 g/dl (3.4-5.0); ALK PHOS 113 U/L (45-117); ANION GAP 12 (8-16); BILIRUBIN,TOTAL 0.5 mg/dL (0.2-1.0); BLOOD UREA NITROGEN 17 mg/dL (7-18); CALCIUM 9.1 mg/dL (8.5-10.1); CHLORIDE 102 mmol/L (98-107); CO2 23 mmol/L (21-32); CREATININE 1.2 mg/dL (0.7-1.3); GLUCOSE,RANDOM 191 mg/dL (74-106); POTASSIUM 3.9 mmol/L (3.5-5.1); SGOT/AST 26 U/L (15-37); SGPT/ALT 29 U/L (12-78); SODIUM 137 mmol/L (136-145); TOT PROT 7.1 g/dl (6.4-8.2)
[2017-06-09 14:11] VITALS: BP 142/88; PULSE 79; TEMP 98.6
== END 2017-06-09 16:00 | disposition home or self-care (01) | DRG 637 ==
LOC: JER 15:58 → JERBED 18:34 → J4W 20:51
PROVIDERS: ADMIT Internal Medicine; ATTEND Family Medicine
DX: E11.65 Type 2 diabetes mellitus with hyperglycemia (principal); E11.00 Type 2 diabetes mellitus with hyperosmolarity without nonketotic hyperglycemic-hyperosmolar coma (NKHHC); N17.9 Acute kidney failure, unspecified; E87.1 Hypo-osmolality and hyponatremia; G40.89 Other seizures; I10 Essential (primary) hypertension; Z79.84 Long term (current) use of oral hypoglycemic drugs; Z91.14 Patient's other noncompliance with medication regimen; J45.909 Unspecified asthma, uncomplicated; E86.0 Dehydration; R94.31 Abnormal electrocardiogram [ECG] [EKG]
CPT/HCPCS: 36415; 80048; 80053; 80061; 82009; 82550; 82553; 82803; 82947; 82962; 83036; 83721; 83735; 84100; 84484; 85025; 93005; 93010; 93306-TC; 99285-25; J1644

== ENCOUNTER 2018-07-14 00:03 | Emergency (ER) | payer MEDICARE, OTHER ==
--- NOTE | 2018-07-14 00:27 | PDOC ---
History of Present Illness - General Stated Complaint: RIGHT ARM TINGLING Time Seen by Provider: 07/14/18 00:27 History Source: Patient Exam Limitations: No Limitations - History of Present Illness Initial Comments: 07/14/18 00:28 57 year old with a history of HTN, epilepsy (tegretol), DM,HLD, hypothyroidism who presents with 1 week of R arm tingling onset worsening 2-3 hours before arrival and associated with diaphoresis. The patient reports that he has been writing a lot and he is right handed. He denies any chest pain, shortness of breath, facial droop, recent illness or fever. Patient reports that his symptoms have been improving. He has no other complaints at bedside. 07/14/18 01:37 NIH Stroke Scale - Last Known Well Date/Time & Onset Date Last Known Well: 07/09/18 Time Last Known Well: 12:00 - Initial Evaluation Level of consciousness: Alert Ask patient the month and their age: Answers both correctly Ask patient to open & close eyes; make fist and let go: Obeys both correctly Best gaze (horizontal eye movement): Normal Visual field testing: No visual field loss Facial paresis (Show teeth/raise eyebrows/close eyes tight): Normal symmetrical movement Motor Function: Left Arm: Normal Motor Function: Right Arm: Normal (extends arm 90 (or 45) degrees for 10 seconds without drift Motor Function: Left Leg: Normal (extends leg 30 degrees for 5 seconds without drift) Motor Function: Right Leg: Normal (extends leg 30 degrees for 5 seconds without drift) Limb Ataxia: No ataxia Sensory(Use pinprick test arms,legs,trunk,face/side to side): Normal Best language (Describe picture, name items, read sentences): No Aphasia Dysarthria (read several words): Normal articulation Extinction and Inattention: No abnormality - Total Score NIH Stroke Scale Score: 0 Past History - Past Medical History Allergies/Adverse Reactions: Allergies Allergy/AdvReac Type Severity Reaction Status Date / Time No Known Allergies Allergy Verified 07/14/18 00:38 Home Medications: Ambulatory Orders Carbamazepine [Tegretol -] 200 mg PO TID 06/06/17 Ipratropium/Albuterol Sulfate [Combivent Respimat 20-100 Mcg] 4 gm IH QID PRN Salmeterol/Fluticasone [Advair 500Mcg/50Mcg -] 1 inh IH BID 06/06/17 Insulin (Levemir) [Levemir Vial] 28 units SQ BID@0700,2200 #5 syringe 06/09/17 Sitagliptin Phosphate [Januvia -] 100 mg PO DAILY@0700 #30 ud 06/09/17 metFORMIN HCL [Glucophage -] 850 mg PO BID@0700,1630 #60 tablet 06/09/17 Anemia: No Asthma: No Cancer: No Cardiac Disorders: No CVA: No COPD: No CHF: No Dementia: No Diabetes: Yes GI Disorders: No Disorders: No HTN: Yes Hypercholesterolemia: Yes Liver Disease: No Seizures: Yes Thyroid Disease: No - Surgical History Abdominal Surgery: No Appendectomy: No Cardiac Surgery: No Cholecystectomy: No Lung Surgery: No Neurologic Surgery: No Orthopedic Surgery: No - Suicide/Smoking/Psychosocial Hx Smoking History: Never smoked Have you smoked in the past 12 months: No Hx Alcohol Use: No Drug/Substance Use Hx: No Substance Use Type: None Hx Substance Use Treatment: No Review of Systems - Review of Systems Able to Perform ROS?: Yes Is the patient limited Occitan proficient: No Constitutional: No: Chills, Diaphoresis, Fever HEENTM: No: Blurred Vision, Tinnitus Respiratory: No: Cough, Orthopnea, Shortness of Breath Cardiac (ROS): No: Chest Pain, Lightheadedness, Palpitations, Syncope ABD/GI: No: Constipated, Diarrhea, Nausea, Vomiting : No: Burning, Dysuria, Hematuria, Incontinence Musculoskeletal: No: Back Pain, Neck Pain Neurological: Yes: Numbness, Tingling. No: Headache *Physical Exam - Physical Exam Comments: 07/14/18 01:21 GENERAL: Awake, alert, and fully oriented, in no acute distress HEAD: No signs of trauma, normocephalic, atraumatic EYES: EOMI, sclera anicteric, conjunctiva clear ENT: oropharynx clear without exudates. Moist mucosa NECK: Normal ROM, supple LUNGS: No distress, speaks full sentences, clear to auscultation bilaterally HEART: Regular rate and rhythm, normal S1 and S2, no murmurs, rubs or gallops, peripheral pulses normal and equal bilaterally. ABDOMEN: Soft, nontender, normoactive bowel sounds. No guarding, no rebound. No masses EXTREMITIES : Normal inspection, Normal range of motion, no edema. No clubbing or cyanosis. negative tinels and phalens test NEUROLOGICAL: Cranial nerves II through XII grossly intact. Normal speech, no focal sensorimotor deficits SKIN: Warm, Dry, normal turgor, no rashes or lesions noted ED Treatment Course - LABORATORY CBC & Chemistry Diagram: 07/14/18 01:37 07/14/18 01:10 Medical Decision Making - Medical Decision Making 07/14/18 01:19 57 year old with a history of HTN, epilepsy (tegretol), DM,HLD, hypothyroidism who presents with 1 week of R arm tingling onset worsening 2-3 hours before arrival and associated with diaphoresis. The patient reports that he has been writing a lot and he is right handed. ED Course: r/o acs vs cva consider carpal tunnel 07/14/18 01:22 EKG: normal sinus rhythm HR 72, no interval abnormalities, narrow QRS, ST and T wave segments and morphology normal. 07/14/18 02:23 cbc, cmp, trop, cxr 07/14/18 05:03 CT negative \ d/c f/u neurolohy *DC/Admit/Observation/Transfer Diagnosis at time of Disposition: Peripheral neuropathy - Discharge Dispostion Disposition: HOME Condition at time of disposition: Stable Decision to Admit order: No - Referrals Referrals: Mc Estrada MD, MD [Primary Care Provider] - Paul Finley MD [Staff Physician] - - Patient Instructions Printed Discharge Instructions: DI for Peripheral Neuropathy Additional Instructions: You were seen in the ED for R arm tingling. You were evaluated labwork and imaging which did not show significant findings. You are advised to see your PCP within 1 week You have a referral for neurology and are advised to follow up in 1 week. Return to the ED immediately if you have worsening symptoms, muscle weakness, pain, chest pain, shortness of breath, or loss of consciousness. - Post Discharge Activity
--- NOTE | 2018-07-14 00:40 | PDOC ---
Attending Attestation - HPI HPI: 07/14/18 01:50 The patient is a 57 year old male, with a significant PMH of HTN, epilepsy ( tegretol), DM,HLD, hypothyroidism who presents to the emergency department today for evaluation of worsening right arm tingling and numbness, onset 1 week. 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 He notes that the pain was at its worse 2 hours before coming into the ED but have been getting better. Patient denies any other complaints. The patient denies chest pain, shortness of breath, headache and dizziness. Denies fever, chills, nausea, vomit, diarrhea and constipation. Denies dysuria, frequency, urgency and hematuria. Allergies: NKA Social history: No reported PCP: Dr. Estrada <Bina Griffin - Last Filed: 07/14/18 01:50> - Resident Resident Name: Chrissie Ventura - ED Attending Attestation I have performed the following: I have examined & evaluated the patient, The case was reviewed & discussed with the resident, I agree w/resident's findings & plan - Physicial Exam PE: 07/14/18 05:03 Agree with resident exam - Medical Decision Making 07/14/18 05:03 Patient Name: SKYLER CA THIS IS A PRELIMINARY REPORT FROM [facility] [facility] DATE OF SERVICE: 2018-07-14 04:08:19 IMAGES: 294 EXAM: CT CERVICAL SPINE CT W/O CONTR HISTORY: Concern for fracture COMPARISON: None. FINDINGS: Vertebral bodies appear normal with no fracture There is mild straightening of the normal lordotic curvature. There are mild degenerative changes with posterior osteophyte on the left at C4-C5 Airway is intact Soft Tissues are normal Pulmonary apices are normal IMPRESSION: Mild degenerative changes with no cervical spine fracture One or more of the following dose reduction techniques were used: automated 07/14/18 05:03 All labs normal; cardiac enzymes normal 07/14/18 20:43 Pt's arm tingling is not cardiac; pt has no severe cervical degeneration or pathology causing the right arm numbness/tingling. Pt will be discharged home with neuro follow up. <Karen Jimenez - Last Filed: 07/14/18 20:45> Attestations - Attestations 07/14/18 01:50 Documentation prepared by Bina Borsellino, acting as medical review specialist for Karen Jimenez MD. <Bina Griffin - Last Filed: 07/14/18 01:50>
[2018-07-14 01:01] VITALS: TEMP 98.1; BMI 86.0
[2018-07-14 01:43] LABS: BASO % 1.1 % (0-2.0); EOS % 4.8 % (0-4.5); HEMATOCRIT 47.1 % (35.4-49); HEMOGLOBIN 15.7 GM/dL (11.7-16.9); LYMPH % 41.9 % (8-40); MCH 30.6 pg (25.7-33.7); MCHC 33.3 g/dl (32.0-35.9); MEAN CELL VOLUME 91.8 fl (80-96); MEAN PLT VOLUME 8.1 fl (7.5-11.1); MONO % 8.7 % (3.8-10.2); NEUT % 43.5 % (42.8-82.8); PLATELET COUNT 202 K/MM3 (134-434); RBC 5.14 M/mm3 (4.00-5.60); RDW 13.8 % (11.9-15.9); WHITE BLOOD COUNT 8.2 K/mm3 (4.0-10.0)
[2018-07-14 03:03] LABS: ALBUMIN 3.8 g/dl (3.4-5.0); ALK PHOS 91 U/L (45-117); ANION GAP 7 MMOL/L (8-16); BILIRUBIN,TOTAL 0.2 mg/dL (0.2-1); BLOOD UREA NITROGEN 16 mg/dL (7-18); CALCIUM 8.6 mg/dL (8.5-10.1); CHLORIDE 107 mmol/L (98-107); CO2 24 mmol/L (21-32); CREATININE 1.3 mg/dL (0.55-1.3); GLUCOSE,RANDOM 129 mg/dL (74-106); POTASSIUM 4.1 mmol/L (3.5-5.1); SGOT/AST 21 U/L (15-37); SGPT/ALT 29 U/L (13-61); SODIUM 138 mmol/L (136-145)
[2018-07-14 05:43] VITALS: BP 125/80; PULSE 65
--- NOTE | 2018-07-14 11:39 | EKG ---
Test Reason : Blood Pressure : / mmHG Vent. Rate : 072 BPM Atrial Rate : 072 BPM P-R Int : 202 ms QRS Dur : 096 ms QT Int : 392 ms P-R-T Axes : 042 004 026 degrees QTc Int : 429 ms NORMAL SINUS RHYTHM INFERIOR INFARCT (CITED ON OR BEFORE 06-JUN-2017) ABNORMAL ECG WHEN COMPARED WITH ECG OF 07-JUN-2017 09:06, NO SIGNIFICANT CHANGE WAS FOUND Confirmed by MICHELLE ALCANTAR, AGUSTIN ([id number]) on 07/14/2018 11:39:38 AM Referred By: Confirmed By:AGUSTIN MARTINEZ MD
== END 2018-07-14 05:41 | disposition home or self-care (01) ==
LOC: JER 00:03
DX: G62.9 Polyneuropathy, unspecified (principal); I10 Essential (primary) hypertension; E11.9 Type 2 diabetes mellitus without complications; Z79.4 Long term (current) use of insulin; E03.9 Hypothyroidism, unspecified; G40.909 Epilepsy, unspecified, not intractable, without status epilepticus
CPT/HCPCS: 36415; 71045-TC-FY; 72125-TC; 80053; 84484; 85025; 93005; 93010; 99282-25

== ENCOUNTER 2018-10-10 16:25 | Inpatient (IN) | payer MEDICARE, OTHER ==
[2018-10-10] MEDS ORDERED: SODIUM CHLORIDE 1,000 ML IV STA ×2 (16:40→18:59)
--- NOTE | 2018-10-10 16:41 | PDOC ---
Rapid Medical Evaluation Chief Complaint: Blood Sugar Problem Time Seen by Provider: 10/10/18 16:38 Medical Evaluation: Allergies Allergy/AdvReac Type Severity Reaction Status Date / Time No Known Allergies Allergy Verified 10/10/18 16:38 Vital Signs Temp Pulse Resp BP Pulse Ox 98.4 F 104 H 17 117/85 97 10/10/18 16:36 10/10/18 16:36 10/10/18 16:36 10/10/18 16:36 10/10/18 16:36 10/10/18 16:40 Pt c/o: increased thrist urination, diabetic, takes glucophage, oes not check glucose, + dizziness Pt on brief exam: tachy, no fruity smell on breath Pt ordered for: dka w/u pt to proceed to the ED Discharge Disposition - Diagnosis Hyperglycemia Diabetes Qualifiers: Diabetes mellitus type: type 2 Diabetes mellitus healthcare network consultant insulin use: without healthcare network consultant use Diabetes mellitus complication status: with hyperglycemia Qualified Code(s): E11.65 - Type 2 diabetes mellitus with hyperglycemia - Discharge Dispostion Disposition: HOME Condition at time of disposition: Stable - Referrals - Patient Instructions - Post Discharge Activity
--- NOTE | 2018-10-10 17:43 | PDOC ---
History of Present Illness - General Chief Complaint: Blood Sugar Problem Stated Complaint: WEAKNESS, BLOOD SUGAR PROBLEM Time Seen by Provider: 10/10/18 16:38 History Source: Patient Exam Limitations: Clinical Condition - History of Present Illness Initial Comments: 10/10/18 17:39 Patient with history of diabetes on metformin and Januvia unsure of dosage present with complaint of over 1 week history of united frequency, increased thirst, dry mouth and a little lightheaded as per patient. Patient reported he feels his blood sugar has been elevated. Patient reported taking his diabetes medication every day twice a day and last dose was taken this morning. Denies nausea, vomiting, fever, chills, abdominal pains. Denies burning with urination or urinary urgency. Denies any other symptoms Timing/Duration: 1 week Past History - Past Medical History Allergies/Adverse Reactions: Allergies Allergy/AdvReac Type Severity Reaction Status Date / Time No Known Allergies Allergy Verified 10/10/18 16:38 Home Medications: Ambulatory Orders Sitagliptin Phosphate [Januvia -] 100 mg PO DAILY@0700 #30 ud 06/09/17 metFORMIN HCL [Glucophage -] 850 mg PO BID@0700,1630 #60 tablet 06/09/17 Anemia: No Asthma: No Cancer: No Cardiac Disorders: No CVA: No COPD: No CHF: No Dementia: No Diabetes: Yes GI Disorders: No Disorders: No HTN: Yes Hypercholesterolemia: Yes Liver Disease: No Seizures: Yes Thyroid Disease: No - Surgical History Abdominal Surgery: No Appendectomy: No Cardiac Surgery: No Cholecystectomy: No Lung Surgery: No Neurologic Surgery: No Orthopedic Surgery: No - Suicide/Smoking/Psychosocial Hx Smoking History: Never smoked Have you smoked in the past 12 months: No Information on smoking cessation initiated: No Hx Alcohol Use: No Drug/Substance Use Hx: No Substance Use Type: None Hx Substance Use Treatment: No Review of Systems - Review of Systems Able to Perform ROS?: Yes Is the patient limited Irish proficient: No Constitutional: No: Chills, Fever, Malaise, Night Sweats, Weakness HEENTM: No: Symptoms Reported, See HPI, Eye Pain, Blurred Vision, Tearing, Recent change in vision, Double Vision, Cataracts, Ear Pain, Ocular Prothesis, Ear Discharge, Nose Pain, Nose Congestion, Tinnitus, Nose Bleeding, Hearing Loss , Throat Pain, Throat Swelling, Mouth Pain, Dental Problems, Difficulty Swallowing, Mouth Swelling, Other Respiratory: No: Symptoms reported, See HPI, Cough, Orthopnea, Shortness of Breath, SOB with Exertion, SOB at Rest, Stridor, Wheezing, Productive cough, Hemoptysis, Other Cardiac (ROS): Yes: Symptoms Reported, See HPI, Lightheadedness (intermittent). No: Chest Pain, Edema, Irregular Heart Rate, Palpitations, Syncope, Chest Tightness, Other ABD/GI: No: Symptoms Reported, Abdominal Distended, Constipated, Diarrhea, Nausea, Vomiting, Abdominal cramping Musculoskeletal: No: Symptoms Reported Integumentary: No: Symptoms Reported Neurological: No: Symptoms reported, Headache, Seizure, Tingling, Weakness, Dizziness All Other Systems: Reviewed and Negative *Physical Exam - Vital Signs Last Vital Signs Temp Pulse Resp BP Pulse Ox 98.4 F 104 H 17 117/85 97 10/10/18 16:36 10/10/18 16:36 10/10/18 16:36 10/10/18 16:36 10/10/18 16:36 - Physical Exam Comments: 10/10/18 17:43 GENERAL: Well developed, well nourished. Awake and alert. No acute distress. HEENT: Normocephalic, atraumatic. PERRLA, EOMI. No conjunctival pallor. Sclera are non-icteric. Moist mucous membranes. Oropharynx is clear. NECK: Supple. Full ROM. CARDIOVASCULAR: Regular rate and rhythm. No murmurs, rubs, or gallops. Distal pulses are 2+ and symmetric. PULMONARY: No evidence of respiratory distress. Lungs clear to auscultation bilaterally. No wheezing, rales or rhonchi. ABDOMINAL: Soft. Non-tender. Non-distended. No rebound or guarding. No organomegaly. Normoactive bowel sounds. MUSCULOSKELETAL Normal range of motion at all joints. EXTREMITIES: No cyanosis. No clubbing. No edema. No calf tenderness. SKIN: Warm and dry. Normal capillary refill. No rashes. No jaundice. NEUROLOGICAL: Alert, awake, appropriate. Gait is normal without ataxia. PSYCHIATRIC: Cooperative. Good eye contact. Appropriate mood General Appearance: Yes: Nourished, Appropriately Dressed. No: Apparent Distress ED Treatment Course - LABORATORY CBC & Chemistry Diagram: 10/10/18 16:39 10/10/18 16:39 Medical Decision Making - Medical Decision Making 10/10/18 17:41 Patient with history of diabetes on metformin and Januvia unsure of dosage present with complaint of over 1 week history of united frequency, increased thirst, dry mouth and a little lightheaded as per patient. Patient reported he feels his blood sugar has been elevated. Patient reported taking his diabetes medication every day twice a day and last dose was taken this morning. Denies nausea, vomiting, fever, chills, abdominal pains. Denies burning with urination or urinary urgency. Denies any other symptoms Clinical exam unremarkable with patient in no acute distress and normal neuro exam. Lungs clear to auscultation bilateral. CBC and chemistry lab ordered from triage. UA, urine culture lab ordered. IV hydration with 500 mL normal saline ordered. Reassess after IV hydration and labs 10/10/18 18:33 blood glucose on fingerstick is over 600. CBC unremarkable. Chemistry lab still pending 10/10/18 18:59 chemistry lab shows glucose over 900. Patient will be given 10units insulin and another bolus of 1L NS . Patient to be admitted for glucose control. microblog sent to medicine team 10/10/18 19:32 spoke to medicine team who advised to admit to Dr. Warner and will come down to see patient. 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
[2018-10-10 18:04] LABS: VENOUS PC02 41.9 mmHg (41-51); VENOUS PH 7.4 (7.31-7.41); VENOUS PO2 62.2 mmHg (30-40)
[2018-10-10 18:05] LABS: URINE APPEARANCE CLEAR; URINE BILIRUBIN NEGATIVE (NEGATIVE); URINE COLOR YELLOW; URINE GLUCOSE (UA) 3+ (NEGATIVE); URINE KETONE NEGATIVE (NEGATIVE); URINE LEUK ESTERASE NEGATIVE (NEGATIVE); URINE NITRITE NEGATIVE (NEGATIVE); URINE PROTEIN NEGATIVE (NEGATIVE); URINE UROBILINOGEN 0.2 mg/dL (0.2-1.0)
[2018-10-10 18:23] LABS: BASO % 0.4 % (0-2.0); EOS % 3.9 % (0-4.5); HEMATOCRIT 50.4 % (35.4-49); HEMOGLOBIN 16.4 GM/dL (11.7-16.9); LYMPH % 36.7 % (8-40); MCH 29.3 pg (25.7-33.7); MCHC 32.5 g/dl (32.0-35.9); MEAN CELL VOLUME 90.1 fl (80-96); PLATELET COUNT 180 K/MM3 (134-434); RBC 5.59 M/mm3 (4.00-5.60); RDW 13.6 % (11.9-15.9); WHITE BLOOD COUNT 5.7 K/mm3 (4.0-10.0)
[2018-10-10 18:38] LABS: ALBUMIN 3.9 g/dl (3.4-5.0); BILIRUBIN,TOTAL 0.6 mg/dL (0.2-1); CALCIUM 9.2 mg/dL (8.5-10.1); CREATININE 1.8 mg/dL (0.55-1.3); POTASSIUM 4.9 mmol/L (3.5-5.1); TOT PROT 7.8 g/dl (6.4-8.2)
[2018-10-10] MEDS ORDERED: INSULIN REGULAR HUMAN 100 UNITS/ML *VIAL SQ ONE (18:55)
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
[2018-10-10] MEDS ORDERED: INSULIN REGULAR HUMAN 100 UNITS/ML *VIAL ONE (19:57)
[2018-10-10] MEDS: SODIUM CHLORIDE 1,000 ML IV SCH (20:14)
[2018-10-10] MEDS ORDERED: INSULIN (NOVOLOG) ASPART 100 UNITS/ML 10ML VIAL ONE (21:40)
[2018-10-10] MEDS: INSULIN (LEVEMIR) 100 UNITS/ML UNITS SQ SCH (21:42)
[2018-10-10] MEDS: INSULIN SLIDING SCALE (NOVOLOG) 1 VIAL SQ SCH (21:42)
[2018-10-10] MEDS: HEPARIN NA (PORCINE) 5,000 UNITS/ML 1ML VIAL SQ SCH (21:45)
[2018-10-10] MEDS ORDERED: PT OWN MED DRAWER 7, Y5N ONE (22:13)
[2018-10-11] MEDS: carBAMazepine 200 MG TABLET PO SCH ×4 (00:05→17:33)
[2018-10-11 01:20] LABS: ALBUMIN 4.3 g/dl (3.4-5.0); BILIRUBIN,TOTAL 0.5 mg/dL (0.2-1); BLOOD UREA NITROGEN 15.4 mg/dL (7-18); CALCIUM 8.9 mg/dL (8.5-10.1); CREATININE 1.6 mg/dL (0.55-1.3); POTASSIUM 4.2 mmol/L (3.5-5.1); TOT PROT 7.8 g/dl (6.4-8.2)
[2018-10-11] MEDS ORDERED: OXYMETAZOLINE 0.05% NASAL SOLUTION 15 ML BOTTLE NS PRN (04:14)
[2018-10-11] MEDS: INSULIN SLIDING SCALE (NOVOLOG) 1 VIAL SQ SCH ×4 (06:38→22:33)
[2018-10-11 07:50] LABS: ALBUMIN 3.8 g/dl (3.4-5.0); BILIRUBIN,TOTAL 0.5 mg/dL (0.2-1); BLOOD UREA NITROGEN 13.4 mg/dL (7-18); CALCIUM 8.8 mg/dL (8.5-10.1); CREATININE 1.3 mg/dL (0.55-1.3); MAGNESIUM 2.4 mg/dL (1.8-2.4); TOT PROT 6.9 g/dl (6.4-8.2)
[2018-10-11] MEDS ORDERED: PT OWN MED DRAWER 7, Y5N ONE (08:37)
[2018-10-11] MEDS: HEPARIN NA (PORCINE) 5,000 UNITS/ML 1ML VIAL SQ SCH ×2 (09:03→22:29)
[2018-10-11] MEDS: INSULIN (LEVEMIR) 100 UNITS/ML UNITS SQ SCH ×2 (09:03→22:29)
[2018-10-11] MEDS ORDERED: INSULIN (LEVEMIR) 100 UNITS/ML UNITS SQ SCH (09:36)
[2018-10-11 09:37] LABS: BASO % 0.5 % (0-2.0); EOS % 5.6 % (0-4.5); HEMATOCRIT 45.2 % (35.4-49); HEMOGLOBIN 15.4 GM/dL (11.7-16.9); LYMPH % 47.2 % (8-40); MCH 29.7 pg (25.7-33.7); MCHC 34.1 g/dl (32.0-35.9); MEAN CELL VOLUME 87.2 fl (80-96); MEAN PLT VOLUME 9.5 fl (7.5-11.1); MONO % 8.6 % (3.8-10.2); NEUT % 38.1 % (42.8-82.8); PLATELET COUNT 187 K/MM3 (134-434); RBC 5.19 M/mm3 (4.00-5.60); RDW 13.3 % (11.9-15.9)
--- NOTE | 2018-10-11 09:38 | PN ---
Progress Note, Physician Chief Complaint: Uncontrolled DM2 History of Present Illness: NAD self ambulatory - Current Medication List Current Medications: Active Medications Carbamazepine (Tegretol -) 200 mg PO TIDCM [facility] Last Admin: 10/11/18 09:03 Dose: 200 mg Heparin Sodium (Porcine) (Heparin -) 5,000 unit SQ BID [facility] Last Admin: 10/11/18 09:03 Dose: 5,000 unit Sodium Chloride (Normal Saline -) 1,000 mls @ 75 mls/hr IV ASDIR [facility] Last Admin: 10/10/18 20:14 Dose: 75 mls/hr Insulin Aspart (Novolog Vial Sliding Scale -) 1 vial SQ ACHS [facility]; Protocol Last Admin: 10/11/18 06:38 Dose: 4 unit Insulin Detemir (Levemir Vial) 28 units SQ BID [facility] Last Admin: 10/11/18 09:03 Dose: 28 units Oxymetazoline HCl (Afrin -) 2 spray NS Q12H PRN PRN Reason: NASAL CONGESTION Last Admin: 10/11/18 06:38 Dose: 2 sprays - Objective Vital Signs: Vital Signs Temperature 98.1 F 10/11/18 07:30 Pulse Rate 68 10/11/18 07:30 Respiratory Rate 18 10/11/18 07:30 Blood Pressure 143/87 10/11/18 07:30 O2 Sat by Pulse Oximetry (%) 98 10/11/18 06:00 Constitutional: Yes: Well Nourished, No Distress, Calm, Obese Cardiovascular: Yes: Regular Rate and Rhythm Respiratory: Yes: Regular Gastrointestinal: Yes: WNL, Normal Bowel Sounds, Soft, Abdomen, Obese Genitourinary: Yes: Polyuria Musculoskeletal: Yes: WNL Extremities: Yes: WNL Edema: No Peripheral Pulses WNL: Yes Neurological: Yes: Alert, Oriented Psychiatric: Yes: Alert, Oriented Labs: CBC, BMP 10/11/18 06:28 Problem List - Problems (1) Diabetes Assessment/Plan: -Increase Levemir to 32 U BID -Dietary compliance is an issue -BGM AC HS -Novolog sliding scale -Diabetic low sodium diet -Endocrine consult Code(s): E11.9 - TYPE 2 DIABETES MELLITUS WITHOUT COMPLICATIONS Qualifiers: Diabetes mellitus type: type 2 Diabetes mellitus usp insulin use: without usp use Diabetes mellitus complication status: with hyperglycemia Qualified Code(s): E11.65 - Type 2 diabetes mellitus with hyperglycemia (2) Acute kidney injury Assessment/Plan: -Continue IVF -Cr improved -monitor trend Code(s): N17.9 - ACUTE KIDNEY FAILURE, UNSPECIFIED Assessment/Plan see problem list Likely dc home in AM
--- NOTE | 2018-10-11 10:15 | EKG ---
Test Reason : Blood Pressure : / mmHG Vent. Rate : 094 BPM Atrial Rate : 094 BPM P-R Int : 192 ms QRS Dur : 092 ms QT Int : 372 ms P-R-T Axes : 067 033 038 degrees QTc Int : 465 ms NORMAL SINUS RHYTHM POSSIBLE LEFT ATRIAL ENLARGEMENT WHEN COMPARED WITH ECG OF 14-JUL-2018 00:29, NO SIGNIFICANT CHANGE WAS FOUND Confirmed by LORENZA OTERO MD ([id number]) on 10/11/2018 10:15:31 AM Referred By: Confirmed By:LORENZA OTERO MD
[2018-10-11] MEDS: SODIUM CHLORIDE 1,000 ML IV SCH (22:30)
[2018-10-11] MEDS ORDERED: SODIUM PHOSPHATE/NA BIPHOS 133 ML ENEMA PR ONE (22:39)
[2018-10-12] MEDS: INSULIN SLIDING SCALE (NOVOLOG) 1 VIAL SQ SCH ×3 (06:31→17:19)
[2018-10-12] MEDS: INSULIN (LEVEMIR) 100 UNITS/ML UNITS SQ SCH ×2 (06:31→22:18)
[2018-10-12 08:10] LABS: ALBUMIN 3.4 g/dl (3.4-5.0); BILIRUBIN,TOTAL 0.5 mg/dL (0.2-1); BLOOD UREA NITROGEN 15.4 mg/dL (7-18); CALCIUM 7.3 mg/dL (8.5-10.1); CREATININE 1.1 mg/dL (0.55-1.3); POTASSIUM 3.8 mmol/L (3.5-5.1); TOT PROT 6.3 g/dl (6.4-8.2)
[2018-10-12] MEDS ORDERED: PT OWN MED DRAWER 7, Y5N ONE ×2 (08:58→11:53)
[2018-10-12] MEDS: HEPARIN NA (PORCINE) 5,000 UNITS/ML 1ML VIAL SQ SCH ×2 (09:07→21:34)
[2018-10-12] MEDS: carBAMazepine 200 MG TABLET PO SCH ×3 (09:07→17:20)
--- NOTE | 2018-10-12 10:30 | PN ---
Progress Note, Physician Chief Complaint: Hyperglycemia DM History of Present Illness: Previous notes and events reviewed awake and alert NAD denies complaints of chest pain or SOB BS improving - Current Medication List Current Medications: Active Medications Carbamazepine (Tegretol -) 200 mg PO TIDCM [facility] Last Admin: 10/12/18 09:07 Dose: 200 mg Heparin Sodium (Porcine) (Heparin -) 5,000 unit SQ BID [facility] Last Admin: 10/12/18 09:07 Dose: 5,000 unit Sodium Chloride (Normal Saline -) 1,000 mls @ 75 mls/hr IV ASDIR [facility] Last Admin: 10/11/18 22:30 Dose: 75 mls/hr Insulin Aspart (Novolog Vial Sliding Scale -) 1 vial SQ ACHS [facility]; Protocol Last Admin: 10/12/18 06:31 Dose: 2 unit Insulin Detemir (Levemir Vial) 32 units SQ BID@0700,2200 [facility] Last Admin: 10/12/18 06:31 Dose: 32 units Oxymetazoline HCl (Afrin -) 2 spray NS Q12H PRN PRN Reason: NASAL CONGESTION Last Admin: 10/11/18 06:38 Dose: 2 sprays - Objective Vital Signs: Vital Signs Temperature 98.3 F 10/12/18 09:10 Pulse Rate 70 10/12/18 09:10 Respiratory Rate 20 10/12/18 09:10 Blood Pressure 135/93 10/12/18 09:10 O2 Sat by Pulse Oximetry (%) 98 10/11/18 21:00 Constitutional: Yes: No Distress, Calm Eyes: Yes: Conjunctiva Clear HENT: Yes: Atraumatic Cardiovascular: Yes: Regular Rate and Rhythm Respiratory: Yes: Regular, CTA Bilaterally Gastrointestinal: Yes: Normal Bowel Sounds, Soft, Abdomen, Obese Musculoskeletal: Yes: WNL Extremities: Yes: WNL Edema: No Neurological: Yes: Alert, Oriented Psychiatric: Yes: Alert, Oriented Labs: CBC, BMP 10/11/18 06:28 10/12/18 06:26 Problem List - Problems (1) Diabetes Assessment/Plan: -Endocrinology consult -HgA1c 10.2 -Levemir BID -ISS -diabetic diet -dietary consult Code(s): E11.9 - TYPE 2 DIABETES MELLITUS WITHOUT COMPLICATIONS Qualifiers: Diabetes mellitus type: type 2 Diabetes mellitus usp insulin use: without moth 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
[2018-10-12] MEDS: SODIUM CHLORIDE 1,000 ML IV SCH (10:39)
[2018-10-12 15:58] VITALS: BMI 34.4
--- NOTE | 2018-10-12 17:14 | CONSULT ---
Consult Consult Specialty:: Endocrinology, coverage for Dr Hester Referred by:: Judit Karimi Reason for Consultation:: Hyperglycemia - History of Present Illness History of Present Illness: This is a 57 yr old M,with h/o chronic back pain, seizure disorder, neuropathy, T2DM on metformin and Januvia who presented to ED with complaint of over 1 week history of urinary frequency, increased thirst, dry mouth and a little lightheaded. Patient reported he feels his blood sugar has been elevated. Patient reports taking medication everyday but does not watch diet, drinks excessive amounts of juice and soda. Does not check blood sugar at home. Pt found to have blood sugar of 917 and treated with Insulin with improvement in sympotms. Pt referred for management of hyperglycemia. Pt says he was on Insulin until about a year ago which was stopped by his PCP. Denies any visual symptoms. Last Oph visit >one year ago. No paresthesia of feet. Feels he lost some weight recently. - History Source History Provided By: Patient, Medical Record - Past Medical History Endocrine: Yes: Diabetes Mellitus - Alcohol/Substance Use Hx Alcohol Use: No - Smoking History Smoking history: Never smoked Have you smoked in the past 12 months: No Home Medications - Allergies Allergies/Adverse Reactions: Allergies Allergy/AdvReac Type Severity Reaction Status Date / Time No Known Allergies Allergy Verified 10/10/18 16:38 - Home Medications Home Medications: Ambulatory Orders Sitagliptin Phosphate [Januvia -] 100 mg PO DAILY@0700 #30 ud 06/09/17 metFORMIN HCL [Glucophage -] 850 mg PO BID@0700,1630 #60 tablet 06/09/17 Carbamazepine [Tegretol -] 200 mg PO BID #60 tablet 10/10/18 Insulin (Levemir) [Levemir Vial] 28 units SQ BID #1 vial 10/10/18 Ipratropium/Albuterol Sulfate [Combivent Respimat Inhal [place]] 4 gm IH QID PRN 60 Days mist.inhal 10/10/18 Family Disease History - Family Disease History Family Disease History: Diabetes: Grandparent, Father Review of Systems - Review of Systems Constitutional: reports: No Symptoms Eyes: reports: No Symptoms HENT: reports: No Symptoms Neck: reports: No Symptoms Cardiovascular: reports: No Symptoms Respiratory: reports: No Symptoms Gastrointestinal: reports: No Symptoms Genitourinary: reports: Frequency Musculoskeletal: reports: No Symptoms Integumentary: reports: No Symptoms Neurological: reports: No Symptoms Endocrine: reports: No Symptoms Hematology/Lymphatic: reports: No Symptoms Physical Exam Vital Signs: Vital Signs Temperature 98.9 F 10/12/18 14:23 Pulse Rate 75 10/12/18 14:23 Respiratory Rate 18 10/12/18 14:23 Blood Pressure 124/74 10/12/18 14:23 O2 Sat by Pulse Oximetry (%) 98 10/12/18 09:00 Constitutional: Yes: No Distress, Calm Eyes: Yes: Conjunctiva Clear, EOM Intact HENT: Yes: Atraumatic, Normocephalic Neck: Yes: Supple, Trachea Midline Cardiovascular: Yes: Regular Rate and Rhythm Respiratory: Yes: Regular, CTA Bilaterally Gastrointestinal: Yes: Normal Bowel Sounds, Soft Musculoskeletal: Yes: WNL Extremities: Yes: WNL Edema: No Neurological: Yes: Alert, Oriented Labs: CBC, BMP 10/11/18 06:28 10/12/18 06:26 Assessment/Plan AP: T2DM with hyperglycemia Seizure disorder MICHAEL: reoslving A1c 10.2 Nutrition consult done Diet exercise discussed Diabetes education done OPh exam as outpatient BGM QACHS Levemir 32 BID Novolog SS coverage Hold Metformin for now Will f/u
[2018-10-12] MEDS ORDERED: Insulin (LOG) Aspart 100 UNITS/ML VIAL SQ SCH (22:00)
[2018-10-13] MEDS: SODIUM CHLORIDE 1,000 ML IV SCH (00:25)
[2018-10-13] MEDS: INSULIN SLIDING SCALE (NOVOLOG) 1 VIAL SQ SCH ×3 (06:46→17:42)
[2018-10-13] MEDS: INSULIN (LEVEMIR) 100 UNITS/ML UNITS SQ SCH (06:46)
[2018-10-13] MEDS: carBAMazepine 200 MG TABLET PO SCH ×2 (08:31→12:16)
--- NOTE | 2018-10-13 08:37 | PN ---
Progress Note (short form) - Note Progress Note: Feels good Denies any complaints Improving blood sugar Vital Signs Period Temp Pulse Resp BP Sys/Rico Pulse Ox Last 24 Hr 97.8 F-98.9 F 64-75 17-20 118-135/61-93 98-98 PE: AOx3 Neck: Supple, No JVD HEENT: EOMI Lungs: CTA CVS: S1S2 Abd: Benign Ext: No edema Neuro: No focal deficit CMP Sodium 140 mmol/L (136-145) 10/12/18 06:26 Potassium 3.8 mmol/L (3.5-5.1) 10/12/18 06:26 Chloride 108 mmol/L (98-107) H 10/12/18 06:26 Carbon Dioxide 24 mmol/L (21-32) 10/12/18 06:26 Anion Gap 8 MMOL/L (8-16) 10/12/18 06:26 BUN 15.4 mg/dL (7-18) 10/12/18 06:26 Creatinine 1.1 mg/dL (0.55-1.3) 10/12/18 06:26 Est GFR (CKD-EPI)AfAm 85.31 10/12/18 06:26 Est GFR (CKD-EPI)NonAf 73.61 10/12/18 06:26 POC Glucometer 161 UNITS (80-120) 10/13/18 06:45 Random Glucose 151 mg/dL (74-106) H 10/12/18 06:26 Hemoglobin A1c % 10.2 % (4.2-6.3) H 10/11/18 06:00 Calcium 7.3 mg/dL (8.5-10.1) L 10/12/18 06:26 Magnesium 2.4 mg/dL (1.8-2.4) 10/11/18 06:28 Total Bilirubin 0.5 mg/dL (0.2-1) 10/12/18 06:26 AST 24 U/L (15-37) 10/12/18 06:26 ALT 26 U/L (13-61) 10/12/18 06:26 Alkaline Phosphatase 93 U/L (45-117) 10/12/18 06:26 Total Protein 6.3 g/dl (6.4-8.2) L 10/12/18 06:26 Albumin 3.4 g/dl (3.4-5.0) 10/12/18 06:26 Current Medications Generic Name Dose Route Start Last Admin Trade Name Freq PRN Reason Stop Dose Admin Carbamazepine 200 mg 10/10/18 23:15 10/12/18 17:20 Tegretol - PO 200 mg TIDCM ZAYRA Administration Heparin Sodium (Porcine) 5,000 unit 10/10/18 22:00 10/12/18 21:34 Heparin - SQ 5,000 unit BID ZAYRA Administration Sodium Chloride 1,000 mls @ 75 mls/hr 10/10/18 19:30 10/13/18 00:25 Normal Saline - IV 75 mls/hr ASDIR ZAYRA Administration Insulin Aspart 1 vial 10/13/18 07:00 10/13/18 06:46 Novolog Vial Sliding Scale - SQ 4 unit TIDAC ZAYRA Administration Protocol Insulin Aspart 0 units 10/12/18 22:00 10/12/18 22:19 Novolog SQ 6 units HS ZAYRA Administration Protocol Insulin Detemir 36 units 10/12/18 22:00 10/13/18 06:46 Levemir Vial SQ 36 unit BID@0700,2200 [facility]AYRA Administration Oxymetazoline HCl 2 spray 10/11/18 04:14 10/11/18 06:38 Afrin - NS 2 sprays Q12H PRN Administration NASAL CONGESTION AP: T2DM with hyperglycemia Seizure disorder MICHAEL: reoslving A1c 10.2 Improving blood sugar Nutrition consult done Diet exercise discussed Diabetes education done OPh exam as outpatient BGM QACHS On Levemir 36 BID Novolog SS coverage Hold Metformin for now. Restart outpt if renal function remain stable. May benefit from adding GLP1 or SFLT2 or both after discharge Will f/u
[2018-10-13] MEDS: HEPARIN NA (PORCINE) 5,000 UNITS/ML 1ML VIAL SQ SCH (09:31)
[2018-10-13] MEDS ORDERED: PT OWN MED DRAWER 7, Y5N ONE (12:15)
[2018-10-13 13:38] VITALS: BP 128/66; PULSE 77; TEMP 98.4
--- NOTE | 2018-10-13 14:25 | DS ---
Physical Examination Vital Signs: Vital Signs Temperature 98.4 F 10/13/18 13:37 Pulse Rate 77 10/13/18 13:37 Respiratory Rate 18 10/13/18 13:37 Blood Pressure 128/66 10/13/18 13:37 O2 Sat by Pulse Oximetry (%) 98 10/13/18 09:00 Findings/Remarks: Minh Magaña is a 57 yr old M, medical condition chronic back pain, seizure disorder, neuropathy, diabetes on metformin and Januvia unsure of dosage presented to ED with complaint of over 1 week history of urinary frequency, increased thirst, dry mouth and a little lightheaded as per patient. Patient reported he feels his blood sugar has been elevated. Patient reports taking medication everyday but does not watch diet, drinks excessive amounts of juice and soda. does not check blood sugar at home. hx of seizure disorder, pt takes tegretol, no seizure activity for "long time" as per pt, pt's Neurologist retired, needs to find a new one, receives med through PCP. Constitutional: Yes: Well Nourished, No Distress, Calm Cardiovascular: Yes: Regular Rate and Rhythm Respiratory: Yes: Regular Gastrointestinal: Yes: Normal Bowel Sounds, Soft Musculoskeletal: Yes: WNL Extremities: Yes: WNL Edema: No Peripheral Pulses WNL: Yes Neurological: Yes: Alert, Oriented Psychiatric: Yes: Alert, Oriented Labs: CBC, BMP 10/11/18 06:28 10/12/18 06:26 Discharge Summary Reason For Visit: DM HYPERGLYCEMIA Current Active Problems Diabetes (Acute) Hyperglycemia (Acute) Hospital Course: Laboratory Last Values WBC 7.0 K/mm3 (4.0-10.0) 10/11/18 06:28 RBC 5.19 M/mm3 (4.00-5.60) 10/11/18 06:28 Hgb 15.4 GM/dL (11.7-16.9) 10/11/18 06:28 Hct 45.2 % (35.4-49) 10/11/18 06:28 MCV 87.2 fl (80-96) 10/11/18 06:28 MCH 29.7 pg (25.7-33.7) 10/11/18 06:28 MCHC 34.1 g/dl (32.0-35.9) 10/11/18 06:28 RDW 13.3 % (11.9-15.9) 10/11/18 06:28 Plt Count 187 K/MM3 (134-434) 10/11/18 06:28 MPV 9.5 fl (7.5-11.1) 10/11/18 06:28 Absolute Neuts (auto) 2.7 K/mm3 (1.5-8.0) 10/11/18 06:28 Neutrophils % 38.1 % (42.8-82.8) L D 10/11/18 06:28 Lymphocytes % 47.2 % (8-40) H D 10/11/18 06:28 Monocytes % 8.6 % (3.8-10.2) 10/11/18 06:28 Eosinophils % 5.6 % (0-4.5) H 10/11/18 06:28 Basophils % 0.5 % (0-2.0) 10/11/18 06:28 Nucleated RBC % 0 % (0-0) 10/11/18 06:28 VBG pH 7.40 (7.31-7.41) 10/10/18 16:40 POC VBG pCO2 41.9 mmHg (41-51) 10/10/18 16:40 POC VBG pO2 62.2 mmHg (30-40) H 10/10/18 16:40 VBG HCO3 25.4 mmol/L (23-29) 10/10/18 16:40 VBG O2 Sat (Reba) 90.6 % (70-80) H 10/10/18 16:40 VBG Base Excess 0.9 meq/l (-2-2) 10/10/18 16:40 Sodium 140 mmol/L (136-145) 10/12/18 06:26 Potassium 3.8 mmol/L (3.5-5.1) 10/12/18 06:26 Chloride 108 mmol/L (98-107) H 10/12/18 06:26 Carbon Dioxide 24 mmol/L (21-32) 10/12/18 06:26 Anion Gap 8 MMOL/L (8-16) 10/12/18 06:26 BUN 15.4 mg/dL (7-18) 10/12/18 06:26 Creatinine 1.1 mg/dL (0.55-1.3) 10/12/18 06:26 Est GFR (CKD-EPI)AfAm 85.31 10/12/18 06:26 Est GFR (CKD-EPI)NonAf 73.61 10/12/18 06:26 POC Glucometer 288 UNITS (80-120) 10/13/18 12:11 Random Glucose 151 mg/dL (74-106) H 10/12/18 06:26 Hemoglobin A1c % 10.2 % (4.2-6.3) H 10/11/18 06:00 Calcium 7.3 mg/dL (8.5-10.1) L 10/12/18 06:26 Magnesium 2.4 mg/dL (1.8-2.4) 10/11/18 06:28 Total Bilirubin 0.5 mg/dL (0.2-1) 10/12/18 06:26 AST 24 U/L (15-37) 10/12/18 06:26 ALT 26 U/L (13-61) 10/12/18 06:26 Alkaline Phosphatase 93 U/L (45-117) 10/12/18 06:26 Total Protein 6.3 g/dl (6.4-8.2) L 10/12/18 06:26 Albumin 3.4 g/dl (3.4-5.0) 10/12/18 06:26 Urine Color Yellow 10/10/18 16:39 Urine Appearance Clear 10/10/18 16:39 Urine pH 6.0 (5.0-8.0) 10/10/18 16:39 Ur Specific [place] 1.031 (1.010-1.035) 10/10/18 16:39 Urine Protein Negative (NEGATIVE) 10/10/18 16:39 Urine Glucose (UA) 3+ (NEGATIVE) H 10/10/18 16:39 Urine Ketones Negative (NEGATIVE) 10/10/18 16:39 Urine Blood Negative (NEGATIVE) 10/10/18 16:39 Urine Nitrite Negative (NEGATIVE) 10/10/18 16:39 Urine Bilirubin Negative (NEGATIVE) 10/10/18 16:39 Urine Urobilinogen 0.2 mg/dL (0.2-1.0) 10/10/18 16:39 Ur Leukocyte Esterase Negative (NEGATIVE) 10/10/18 16:39 Acetone, Qual Trace (NEGATIVE) 10/10/18 16:40 Microbiology 10/10/18 16:39 Urine - Urine Clean Catch Urine Culture - Final Vital Signs Temp 98.4 F 10/13/18 13:37 Pulse 77 10/13/18 13:37 Resp 18 10/13/18 13:37 BP 128/66 10/13/18 13:37 Pulse Ox 98 10/13/18 09:00 Intake & Output 10/12/18 10/13/18 10/13/18 23:59 11:59 23:59 Intake Total 2800 1800 400 Balance 2800 1800 400 Weight 112.037 kg Intake: IV 1800 900 Normal Saline - 1,000 ml 1800 900 @ 75 mls/hr IV ASDIR ZAYRA Rx#:[id number] Oral 1000 900 400 Other: Voiding Method Toilet Toilet # Unmeasured Voids Void 2 4 Bowel Movement No No # Bowel Movements 1 Height 5 ft 11 in Body Mass Index (BMI) 34.4 Condition: Stable - Instructions Referrals: Dion Neal MD [Staff Physician] - Hector Hester MD [Staff Physician] - Disposition: HOME - Home Medications Comprehensive Discharge Medication List: Ambulatory Orders Sitagliptin Phosphate [Januvia -] 100 mg PO DAILY@0700 #30 ud 06/09/17 metFORMIN HCL [Glucophage -] 850 mg PO BID@0700,1630 #60 tablet 06/09/17 Carbamazepine [Tegretol -] 200 mg PO BID #60 tablet 10/10/18 Insulin (Levemir) [Levemir Vial] 28 units SQ BID #1 vial 10/10/18 Ipratropium/Albuterol Sulfate [Combivent Respimat Inhal [place]] 4 gm IH QID PRN 60 Days mist.inhal 10/10/18
== END 2018-10-13 17:23 | disposition home or self-care (01) | DRG 638 ==
LOC: JER 16:25 → JERBED 19:16 → J5S 20:51
PROVIDERS: ADMIT Internal Medicine; ATTEND Family Medicine
DX: E11.65 Type 2 diabetes mellitus with hyperglycemia (principal); E87.1 Hypo-osmolality and hyponatremia; N17.9 Acute kidney failure, unspecified; G40.909 Epilepsy, unspecified, not intractable, without status epilepticus; G62.9 Polyneuropathy, unspecified
CPT/HCPCS: 36415; 80048; 80053; 81003; 82009; 82803; 82962; 83036; 83735; 85025; 87086; 93005; 93010; 99284-25; J1644; J7030

== ENCOUNTER 2019-12-09 10:22 | Emergency (ER) | payer MEDICARE, OTHER ==
[2019-12-09 10:40] VITALS: BMI 27.8
[2019-12-09] MEDS ORDERED: SODIUM CHLORIDE 1,000 ML IV STA ×2 (10:49→12:53)
[2019-12-09] MEDS ORDERED: INSULIN REGULAR HUMAN 100 UNITS/ML *VIAL SQ ONE ×3 (10:54→14:57)
--- NOTE | 2019-12-09 11:21 | PDOC ---
History of Present Illness - General Chief Complaint: Blood Sugar Problem Stated Complaint: BLOOD SUGAR PROBLEM Time Seen by Provider: 12/09/19 10:31 - History of Present Illness Initial Comments: 12/09/19 11:01 HPI: 59 y/o M hx of epilepsy (currently on tegretol), IDDM, asthma, HTN, HLD, and hypothyroidism BIBEMS from cataract surgery clinic for Glu in the 500s. Patient woke up this morning with fasting glu at home 459 but since had to be NPO for surgery didnt take insulin. He is asymptomatic. Denies fever, chills, RIOJAS, LH, dizziness, chest pain, SOB, abd pain, n/v, dysuria, polyuria PMHx: as noted above ROS: as noted SHx: Denies tobacco use; no alcohol use; no rec drugs Allergies: NKDA ROS: GENERAL/CONSTITUTIONAL: No fever or chills. No weakness. HEAD, EYES, EARS, NOSE AND THROAT: No change in vision. No ear pain or discharge. No sore throat. CARDIOVASCULAR: No chest pain or shortness of breath RESPIRATORY: No cough, wheezing, or hemoptysis. GASTROINTESTINAL: No nausea, vomiting, diarrhea or constipation. GENITOURINARY: No dysuria, frequency, or change in urination. MUSCULOSKELETAL: No joint or muscle swelling or pain. No neck or back pain. SKIN: No rash NEUROLOGIC: No headache, vertigo, loss of consciousness, or change in strength/sensation. ENDOCRINE: No increased thirst. No abnormal weight change HEMATOLOGIC/LYMPHATIC: No anemia, easy bleeding, or history of blood clots. ALLERGIC/IMMUNOLOGIC: No hives or skin allergy. PE: GENERAL: Awake, alert, and fully oriented, no acute distress HEAD: No signs of trauma, normocephalic, atraumatic EYES: EOMI, sclera anicteric, conjunctiva clear ENT: Auricles normal inspection, hearing grossly normal, nares patent, oropharynx clear without exudates. Moist mucosa NECK: Normal ROM, no lymphadenopathy LUNGS: No increased work of breathing, symmetrical chest rise, clear to auscultation bilaterally, no wheezes, crackles or rhonchi HEART: Regular rate, regular rhythm, normal S1 and S2, no murmur, peripheral pulses 2+ and equal bilaterally. ABDOMEN: Soft, nondistended, nontender. No guarding, no rebound. No masses. No CVAT MUSCULOSKELETAL: FROM NEUROLOGICAL: Cranial nerves II through XII grossly intact. Normal speech, stable gait, no focal sensorimotor deficits SKIN: Warm, Dry, normal turgor, no rashes or lesions noted Past History - Medical History Allergies/Adverse Reactions: Allergies Allergy/AdvReac Type Severity Reaction Status Date / Time No Known Allergies Allergy Verified 12/09/19 10:40 Home Medications: Ambulatory Orders Carbamazepine [Tegretol -] 200 mg PO BID #60 tablet 07/22/19 Gabapentin [Neurontin -] 200 mg PO BID 09/04/19 Insulin Aspart [Novolog] 12 unit SQ DAILY 09/04/19 Insulin NPH Hum/Reg Insulin Hm [Novolin 70-30 Flexpen] 24 unit SQ DAILY 09/04/19 Levothyroxine [Synthroid -] 25 mcg PO DAILY 09/04/19 Metformin HCl [Glucophage] 500 mg PO BID 09/04/19 Rosuvastatin Calcium [Crestor] 20 mg PO DAILY 09/04/19 Anemia: No Asthma: No Cancer: No Cardiac Disorders: No CVA: No COPD: No CHF: No Dementia: No Diabetes: Yes GI Disorders: No Disorders: Yes HTN: Yes Hypercholesterolemia: Yes Liver Disease: No Seizures: Yes Thyroid Disease: No - Surgical History Abdominal Surgery: No Appendectomy: No Cardiac Surgery: No Cholecystectomy: No Lung Surgery: No Neurologic Surgery: No Orthopedic Surgery: No - Immunization History Immunization Up to Date: Yes - Psycho-Social/Smoking History Smoking History: Never smoked Have you smoked in the past 12 months: No Information on smoking cessation initiated: No - Substance Abuse Hx (Audit-C & DAST Scrn) How often the patient has a drink containing alcohol: Never Score: In Men: 4 or > Positive; In Women: 3 or > Positive: 0 Screen Result (Pos requires Nsg. Audit-10AR): Negative In the last yr the pt used illegal drug/Rx for NonMed reason: No Score: Yes response is considered Positive: 0 Screen Result (Positive result requires Nsg. DAST-10): Negative *Physical Exam - Vital Signs Last Vital Signs Temp Pulse Resp BP Pulse Ox 98.1 F 86 18 108/72 97 12/09/19 10:37 12/09/19 10:37 12/09/19 10:37 12/09/19 10:37 12/09/19 10:37 ED Treatment Course - LABORATORY CBC & Chemistry Diagram: 12/09/19 11:05 12/09/19 11:05 - ADDITIONAL ORDERS Additional order review: Laboratory Results 12/09/19 10:35 POC Glucometer 526 12/09/19 10:35 POC Glucometer 526 Medical Decision Making - Medical Decision Making 12/09/19 11:21 59 y/o M hx of epilepsy (currently on tegretol), IDDM, asthma, HTN, HLD, and hypothyroidism BIBEMS from cataract surgery clinic for Glu in the 500s. VSS, AF. Pe unremarkable -bgm, cbc, cmp, beta hydroxy, vbg, ua -reassess 12/09/19 11:23 BGM 527 ivf, 14u insulin (home dose) 12/09/19 14:57 Glu 400; will give 10u insulin Glu 318 will give another 10u insulin 12/09/19 16:42 rpt glu 269 patient feels well will Dc with pcp and endo followup Discharge - Discharge Information Problems reviewed: Yes Clinical Impression/Diagnosis: Hyperglycemia Condition: Improved Disposition: HOME - Follow up/Referral Referrals: Mc Estrada MD, [Primary Care Provider] - Hector Hester MD [Staff Physician] - Dion Neal MD [Staff Physician] - - Patient Discharge Instructions Patient Printed Discharge Instructions: DI for Hyperglycemia -- Adult Additional Instructions: Additional Instructions: Please return to the emergency department with any new or worsening symptoms or concerns. Please follow up with your primary care physician within 48-72 hours for improved insulin regimen. Please see the referral for an bobcat operator attached in your packet within 72 hours for further evaluation and insulin management Please continue your home medications - Post Discharge Activity
[2019-12-09 11:36] LABS: VENOUS BASE EXCESS -1.6 mmol/L (-2-2); VENOUS O2 SATURATION 95.9 % (70-80); VENOUS PCO2 40.2 mmHg (38-52); VENOUS PH 7.381 (7.310-7.410)
[2019-12-09 11:40] LABS: BASO % 0.7 % (0-2.0); EOS % 3.2 % (0-4.5); HEMATOCRIT 53.1 % (35.4-49); HEMOGLOBIN 18.1 GM/dL (11.7-16.9); MCH 29.5 pg (25.7-33.7); MEAN CELL VOLUME 86.7 fl (80-96); MEAN PLT VOLUME 8.5 fl (7.5-11.1); MONO % 8.1 % (3.8-10.2); PLATELET COUNT 189 K/MM3 (134-434); RBC 6.12 M/mm3 (4.00-5.60); WHITE BLOOD COUNT 7.5 K/mm3 (4.0-10.0)
[2019-12-09 12:13] LABS: ALBUMIN 3.7 g/dl (3.4-5.0); BILIRUBIN,TOTAL 0.4 mg/dL (0.2-1); BLOOD UREA NITROGEN 13.4 mg/dL (7-18); CALCIUM 9.3 mg/dL (8.5-10.1); CREATININE 1.4 mg/dL (0.55-1.3); POTASSIUM 4.3 mmol/L (3.5-5.1); TOT PROT 7.8 g/dl (6.4-8.2)
[2019-12-09] MEDS ORDERED: LACTATED RINGERS SOLUTION 1,000 ML/1,000 ML INFUS.BAG IV SCH (13:00)
[2019-12-09 13:29] LABS: URINE APPEARANCE CLEAR; URINE BILIRUBIN NEGATIVE (NEGATIVE); URINE COLOR YELLOW; URINE GLUCOSE (UA) 3+ (NEGATIVE); URINE KETONE TRACE (NEGATIVE); URINE LEUK ESTERASE NEGATIVE (NEGATIVE); URINE NITRITE NEGATIVE (NEGATIVE); URINE PROTEIN NEGATIVE (NEGATIVE); URINE UROBILINOGEN 0.2 mg/dL (0.2-1.0)
--- NOTE | 2019-12-09 13:43 | PDOC ---
Documentation entered by Sophie Veloz SCRIBE, acting as scribe for Tisha Santamaria MD. Tisha Santamaria MD: This documentation has been prepared by the scribe, Sophie Veloz SCRIBE, under my direction and personally reviewed by me in its entirety. I confirm that the documentation accurately reflects all work, treatment, procedures, and medical decision making performed by me. Attending Attestation - Resident Resident Name: WalalceEvelynthee - ED Attending Attestation I have performed the following: I have examined & evaluated the patient, The case was reviewed & discussed with the resident, I agree w/resident's findings & plan, Exceptions are as noted - HPI HPI: 12/09/19 12:24 The patient is a 59-year-old male with a past medical history significant for epilepsy, IDDM, asthma, HTN, HLD, and hypothyroidism who presents to the emergency department via EMS from [facility] for hyperglycemia. The patient was scheduled for a cataract surgery earlier today, at the facility the patient was noted to be hyperglycemic to the 400s and was sent to the ER for evaluation. The patient is currently asymptomatic. The patient reports he was NPO for the surgery and denies taking insulin this morning. The patient reports his glucose last night was in the 300s. - Physicial Exam PE: 12/09/19 12:25 Agree with resident exam - Medical Decision Making 12/09/19 11:39 59-year-old male with a history of insulin-dependent diabetes presents emergency department with elevated blood sugar before cataract surgery. Patient is asymptomatic. Vitals within normal limits. Exam is unremarkable. Plan for labs to rule out diabetic ketoacidosis, however likely hyperglycemia in the setting of not taking his insulin this morning. 12/09/19 13:41. Labs consistent with hyperglycemia, anion gap is within normal limits. Blood sugar has only come down to the low 400s after 14 units of insulin (patient takes 14 units at home twice a day). Likely remains elevated as patient just ate a turkey sandwich. Will give 10 more units of insulin, batch tank controller is mildly elevated so will monitor closely. Patient's hemoglobin also noted to be elevated to 18, likely dehydration in the setting of being n.p.o. for surgery today. Patient has already gotten 1 L of normal saline. We will give a second liter of lactated Ringer's and reassess. Blood sugar <300 with regular insulin/fluids. Discussed at length with pt importance of taking insulin as prescribed and to f/u with PMD for better glycemic control within 48hrs. Pt expresses understanding, continues to be asymptomatic and well appearing. He is clinically stable for DC home. Return precautions discussed. Discharge - Discharge Information Problems reviewed: Yes Clinical Impression/Diagnosis: Hyperglycemia Condition: Improved Disposition: HOME - Follow up/Referral Referrals: Mc Estrada MD, MD [Primary Care Provider] - Hector Hester MD [Staff Physician] - Dion Neal MD [Staff Physician] - - Patient Discharge Instructions Patient Printed Discharge Instructions: DI for Hyperglycemia -- Adult Additional Instructions: Additional Instructions: Please return to the emergency department with any new or worsening symptoms or concerns. Please follow up with your primary care physician within 48-72 hours for improved insulin regimen. Please see the referral for an clinical applications manager attached in your packet within 72 hours for further evaluation and insulin management Please continue your home medications - Post Discharge Activity
[2019-12-09 15:41] VITALS: BP 110/75; PULSE 80; TEMP 98.3
== END 2019-12-09 17:12 | disposition home or self-care (01) ==
LOC: JER 10:22
PROC: 3E0337Z Introduction of Electrolytic and Water Balance Substance into Peripheral Vein, Percutaneous Approach (ICD-10-PCS; principal; 2019-12-09)
DX: R73.9 Hyperglycemia, unspecified (principal)
CPT/HCPCS: 36415; 80053; 81003; 82010; 82803; 82962; 85025; 99284-25

== ENCOUNTER 2019-12-18 16:42 | Inpatient (IN) | payer MEDICARE, OTHER ==
--- NOTE | 2019-12-18 16:55 | PDOC ---
Rapid Medical Evaluation Time Seen by Provider: 12/18/19 16:50 Medical Evaluation: Allergies Allergy/AdvReac Type Severity Reaction Status Date / Time No Known Allergies Allergy Verified 12/09/19 10:40 12/18/19 16:53 I performed a brief in-person evaluation of this patient. 59 y/o male with LLE swelling and pain after a 15 hour car ride 5 days ago. He states he was in a car all the way from [place]. He states he noticed the swelling 5 days ago in the car ride. He denies any sob, cp. H/o seizures, DM, asthma. He was sent for an outpatient doppler and found to have a DVT. Pertinent physical exam findings: LLE with swelling and tenderness to the calf. I have ordered the following: cbc, cmp, pt/inr/ptt, saline lock Patient to proceed to ED for further evaluation. Discharge Disposition - Diagnosis Left leg DVT - Referrals - Patient Instructions - Post Discharge Activity
--- NOTE | 2019-12-18 17:59 | PDOC ---
History of Present Illness - General Chief Complaint: Pain, Acute Stated Complaint: ABN LABS Time Seen by Provider: 12/18/19 16:50 History Source: Patient - History of Present Illness Occurred: reports: other Lower Extremity Pain Location: left: leg Past History - Medical History Allergies/Adverse Reactions: Allergies Allergy/AdvReac Type Severity Reaction Status Date / Time No Known Allergies Allergy Verified 12/18/19 16:56 Home Medications: Ambulatory Orders Carbamazepine [Tegretol -] 200 mg PO BID #60 tablet 07/22/19 Gabapentin [Neurontin -] 200 mg PO BID 09/04/19 Insulin Aspart [Novolog] 12 unit SQ DAILY 09/04/19 Insulin NPH Hum/Reg Insulin Hm [Novolin 70-30 Flexpen] 24 unit SQ DAILY 09/04/19 Levothyroxine [Synthroid -] 25 mcg PO DAILY 09/04/19 Metformin HCl [Glucophage] 500 mg PO BID 09/04/19 Rosuvastatin Calcium [Crestor] 20 mg PO DAILY 09/04/19 Anemia: No Asthma: No Cancer: No Cardiac Disorders: No CVA: No COPD: No CHF: No Dementia: No Diabetes: Yes GI Disorders: No Disorders: Yes HTN: Yes Hypercholesterolemia: Yes Liver Disease: No Seizures: Yes Thyroid Disease: No - Surgical History Abdominal Surgery: No Appendectomy: No Cardiac Surgery: No Cholecystectomy: No Lung Surgery: No Neurologic Surgery: No Orthopedic Surgery: No - Immunization History Immunization Up to Date: Yes - Psycho-Social/Smoking History Smoking History: Never smoked Have you smoked in the past 12 months: No - Substance Abuse Hx (Audit-C & DAST Scrn) How often the patient has a drink containing alcohol: Never Score: In Men: 4 or > Positive; In Women: 3 or > Positive: 0 Screen Result (Pos requires Nsg. Audit-10AR): Negative In the last yr the pt used illegal drug/Rx for NonMed reason: No Score: Yes response is considered Positive: 0 Screen Result (Positive result requires Nsg. DAST-10): Negative Review of Systems - Review of Systems Constitutional: No: Chills, Fever Respiratory: No: Shortness of Breath Cardiac (ROS): No: Chest Pain, Palpitations *Physical Exam - Vital Signs Last Vital Signs Temp Pulse Resp BP Pulse Ox 98.4 F 83 16 90/56 L 100 12/18/19 16:54 12/18/19 16:54 12/18/19 16:54 12/18/19 16:54 12/18/19 16:54 - Physical Exam General Appearance: Yes: Appropriately Dressed. No: Apparent Distress HEENT: positive: Normal Voice Neck: positive: Supple Respiratory/Chest: positive: Lungs Clear, Normal Breath Sounds. negative: Respiratory Distress Cardiovascular: positive: Regular Rate, S1, S2 Extremity: positive: Other (significant swelling w/ ttp diffusely to LLE) Integumentary: positive: Dry, Warm Neurologic: positive: Fully Oriented, Alert, Normal Mood/Affect ED Treatment Course - LABORATORY CBC & Chemistry Diagram: 12/18/19 17:40 12/18/19 17:40 Medical Decision Making - Medical Decision Making 12/18/19 17:54 59-year-old male history of IDDM, asthma, epilepsy sent in by Dr. Estrada, his PMD, for DVT found on ultrasound this a.m. Patient states he drove to and from [place] over a week ago and has had left leg pain and swelling since. Denies any chest pain shortness of breath or palpitations. Of note ultrasound report in [facility] shows extensive DVT involving L deep femoral, popliteal, posterior tibial and lesser saphenous veins see exam Extensive DVT to LLE s/p recent long distance drive No resp/card sxs Stable and well radha Labs pending Will d/c dispo w/ ER attg 12/18/19 18:29 Per d/w Dr Francisco who also evaluated pt, pt to be admitted for lovenox and m/l vascular evaluation for further management 12/18/19 19:00 Patient admitted to hospitalist. Pending chem to initiate Lovenox Discharge - Discharge Information Problems reviewed: Yes Clinical Impression/Diagnosis: Left leg DVT Qualifiers: Affected thrombotic vein of extremity: unspecified vein of extremity Chronicity: acute Qualified Code(s): I82.402 - Acute embolism and thrombosis of unspecified deep veins of left lower extremity Condition: Fair - Admission Yes - Follow up/Referral Referrals: Mc Estrada MD, [Primary Care Provider] - - Patient Discharge Instructions - Post Discharge Activity
[2019-12-18 18:45] LABS: BASO % 0.7 % (0-2.0); EOS % 2.3 % (0-4.5); HEMATOCRIT 45.7 % (35.4-49); HEMOGLOBIN 15.1 GM/dL (11.7-16.9); LYMPH % 34.5 % (8-40); MCH 28.5 pg (25.7-33.7); MCHC 33.1 g/dl (32.0-35.9); MEAN CELL VOLUME 86.3 fl (80-96); MEAN PLT VOLUME 8.6 fl (7.5-11.1); MONO % 7.4 % (3.8-10.2); NEUT % 55.1 % (42.8-82.8); PLATELET COUNT 242 K/MM3 (134-434); RDW 12.8 % (11.9-15.9); WHITE BLOOD COUNT 6.7 K/mm3 (4.0-10.0)
[2019-12-18] MEDS ORDERED: ENOXAPARIN NA (PORCINE) 100 MG/1 ML DISP.SYRIN SQ ONE ×2 (18:45→20:05)
[2019-12-18 18:51] LABS: INR 1.02 (0.83-1.09)
[2019-12-18 18:54] LABS: ACTIVATED PTT 29.6 SECONDS (25.2-36.5)
[2019-12-18] MEDS ORDERED: LACTATED RINGERS SOLUTION 1000 ML INFUS.BAG IV ONE (18:55)
--- NOTE | 2019-12-18 18:57 | PDOC ---
*Physical Exam - Vital Signs Last Vital Signs Temp Pulse Resp BP Pulse Ox 98.4 F 83 16 90/56 L 99 12/18/19 16:54 12/18/19 16:54 12/18/19 16:54 12/18/19 16:54 12/18/19 18:02 - Physical Exam 12/18/19 18:56 agree with JEAN [facility] ED Treatment Course - LABORATORY CBC & Chemistry Diagram: 12/18/19 17:40 12/18/19 17:40 - ADDITIONAL ORDERS Additional order review: Laboratory Results 12/18/19 17:40 PT with INR 12.00 INR 1.02 PTT (Actin FS) 29.6 12/18/19 17:40 RBC 5.30 MCV 86.3 MCHC 33.1 RDW 12.8 MPV 8.6 Neutrophils % 55.1 Lymphocytes % 34.5 Monocytes % 7.4 Eosinophils % 2.3 Basophils % 0.7 - RADIOLOGY Radiology Studies Ordered: Category Date Time Status CHEST PA & LAT [RAD] Stat Radiology 12/18/19 18:55 Ordered Medical Decision Making - Medical Decision Making 12/18/19 18:55 a/p: 59yo male with LE swelling after a long car ride -dvt diagnosed as outpt -will send labs -extensive dvt -will need admission and poss IR eval for catheter directed tpa -will start lovenox in the ER -will need admission 12/18/19 18:57 pt sitting up eating a sandwich in nad Discharge - Discharge Information Problems reviewed: Yes Clinical Impression/Diagnosis: Left leg DVT Condition: Fair - Admission Yes - Follow up/Referral Referrals: Mc Estrada MD, MD [Primary Care Provider] - - Patient Discharge Instructions - Post Discharge Activity
[2019-12-18 19:13] LABS: ALBUMIN 3.3 g/dl (3.4-5.0); BILIRUBIN,TOTAL 0.2 mg/dL (0.2-1); BLOOD UREA NITROGEN 15.9 mg/dL (7-18); CREATININE 1.7 mg/dL (0.55-1.3); POTASSIUM 4.5 mmol/L (3.5-5.1)
--- NOTE | 2019-12-18 22:07 | HP ---
CHIEF COMPLAINT: Leg swelling and pain of 6 days duration PCP:jolly HISTORY OF PRESENT ILLNESS: 58 year old man with a MHx of Asthma, HTN, Epilepsy (on Tegretol), NIDDM, HLD, Hypothyroidism, Chronic back pain and Urinary retention who presents to the ER from PCP's office for lt leg swelling and pain for 6 days duration that started after having a road trip to [place], pt noted that his lt calf is swollen, tender and mildly numb. Pt went to see his PMD and was advised to come to ED for US doppler that showed extensive DVT. Denies any chest pain, dyspnea or palpitations. ER course was notable for: (1) US doppler showed lt extensive DVT involving lt femoral, popliteal, post tibial, lt deep femoral and lesser saph. (2)BG 400s (3) Recent Travel: yes to [place] PAST MEDICAL HISTORY: Asthma, HTN, Epilepsy (on Tegretol), NIDDM, HLD, Hypothyroidism, Chronic back pain and Urinary retention PAST SURGICAL HISTORY: Urethroplast Social History: Smoking: no Alcohol: social (quit many years ago) Drugs: denies Allergies No Known Allergies Allergy (Verified 12/18/19 16:56) HOME MEDICATIONS: Home Medications Medication Instructions Recorded Carbamazepine [Tegretol -] 200 mg PO BID #60 tablet 07/22/19 Gabapentin [Neurontin -] 200 mg PO BID 09/04/19 Insulin Aspart [Novolog] 12 unit SQ DAILY 09/04/19 Insulin NPH Hum/Reg Insulin Hm 24 unit SQ DAILY 09/04/19 [Novolin 70-30 Flexpen] Levothyroxine [Synthroid -] 25 mcg PO DAILY 09/04/19 Metformin HCl [Glucophage] 500 mg PO BID 09/04/19 Rosuvastatin Calcium [Crestor] 20 mg PO DAILY 09/04/19 REVIEW OF SYSTEMS CONSTITUTIONAL: Reviewed, within normal limits HEENT: Reviewed, within normal limits CARDIOVASCULAR: Reviewed, within normal limits RESPIRATORY: Reviewed, within normal limits GASTROINTESTINAL: Reviewed, within normal limits GENITOURINARY: Reviewed, within normal limits MUSCULOSKELETAL: Reviewed, within normal limits SKIN: Reviewed, within normal limits HEMATOLOGIC/IMMUNOLOGIC: see HPI ENDOCRINE: Reviewed, within normal limits NEUROLOGIC: Reviewed, within normal limits PSYCHIATRIC: Reviewed, within normal limits PHYSICAL EXAMINATION Vital Signs - 24 hr 12/18/19 12/18/19 16:54 18:02 Temperature 98.4 F Pulse Rate 83 Respiratory 16 Rate Blood Pressure 90/56 L O2 Sat by Pulse 100 99 Oximetry (%) GENERAL: Awake, alert, and fully oriented, in no acute distress. HEAD: Normal with no signs of trauma. EYES: Pupils equal, round and reactive to light, extraocular movements intact, sclera anicteric, conjunctiva clear. No lid lag. EARS, NOSE, THROAT: Ears normal, nares patent, oropharynx clear without exudates. Moist mucous membranes. NECK: Normal range of motion, supple without lymphadenopathy, JVD, or masses. LUNGS: Breath sounds equal, clear to auscultation bilaterally. No wheezes, and no crackles. No accessory muscle use. HEART: Regular rate and rhythm, normal S1 and S2 without murmur, rub or gallop. ABDOMEN: Soft, nontender, not distended, normoactive bowel sounds, no guarding, no rebound, no masses. No hepatomegaly or splenomegaly. MUSCULOSKELETAL: Normal range of motion at all joints. No bony deformities or tenderness. No CVA tenderness. UPPER EXTREMITIES: 2+ pulses, warm, well-perfused. No cyanosis. No clubbing. No peripheral edema. LOWER EXTREMITIES: lt Leg mild tenderness, -ve Del Valle sign, Mild/mod lower thigh and calf swelling NEUROLOGICAL: Cranial nerves II-XII intact. Normal speech. Normal gait. PSYCHIATRIC: Cooperative. Good eye contact. Appropriate mood and affect. SKIN: Warm, dry, normal turgor, no rashes or lesions noted, normal capillary refill. Laboratory Results - last 24 hr 12/18/19 12/18/19 12/18/19 17:40 17:40 17:40 WBC 6.7 RBC 5.30 Hgb 15.1 Hct 45.7 MCV 86.3 MCH 28.5 MCHC 33.1 RDW 12.8 Plt Count 242 D MPV 8.6 Absolute Neuts (auto) 3.7 Neutrophils % 55.1 Lymphocytes % 34.5 Monocytes % 7.4 Eosinophils % 2.3 Basophils % 0.7 Nucleated RBC % 0 PT with INR 12.00 INR 1.02 PTT (Actin FS) 29.6 Sodium 136 Potassium 4.5 Chloride 100 Carbon Dioxide 28 Anion Gap 7 L BUN 15.9 Creatinine 1.7 H Est GFR (CKD-EPI)AfAm 49.70 Est GFR (CKD-EPI)NonAf 42.88 Random Glucose 412 H* Calcium 9.0 Total Bilirubin 0.2 AST 15 ALT 17 Alkaline Phosphatase 122 H Total Protein 7.0 Albumin 3.3 L ASSESSMENT/PLAN: 58 year old man with a MHx of Asthma, HTN, Epilepsy (on Tegretol), NIDDM, HLD, Hypothyroidism, Chronic back pain and Urinary retention who's admitted for Lt ex tensive DVT # Lt Extensive provoked DVT: US doppler showed lt extensive DVT involving lt femoral, popliteal, post tibial, lt deep femoral and lesser saph started on LMWH 1mg/Kg/dose BID, Creatinine clearance 73 mL/Min denies SOB, palpitations EKG reviewed no family hx of VTE Labs reviewed risks and complications discussed with patient, his questions were answered to apparent satisfaction Asthma HTN Epilepsy DMT2 HLD Hypothyroidism DVT Prophy- on therapeutic dose of LMWH Family Medical History Family History: As Documented Family Hx Diabetes: Grandmother (maternal), Grandfather (paternal) Visit type - Emergency Visit Emergency Visit: Yes ED Registration Date: 12/18/19 Care time: The patient presented to the Emergency Department on the above date and was hospitalized for further evaluation of their emergent condition. - New Patient This patient is new to me today: Yes Date on this admission: 12/18/19 - Critical Care Critical Care patient: No
[2019-12-18] MEDS ORDERED: carBAMazepine 200 MG TABLET ONE (22:53)
[2019-12-18] MEDS ORDERED: GABAPENTIN 100 MG CAPSULE ONE (22:53)
[2019-12-18] MEDS: INSULIN SLIDING SCALE (NOVOLOG) 1 VIAL SQ SCH (23:02)
[2019-12-18] MEDS: carBAMazepine 200 MG TABLET PO SCH (23:03)
[2019-12-18] MEDS: GABAPENTIN 100 MG CAPSULE PO SCH (23:03)
[2019-12-19] MEDS ORDERED: ALBUTEROL SO4 0.083% IH SOL 2.5 MG/3 ML VIAL.NEB. NEB PRN (00:49)
[2019-12-19 07:08] LABS: HEMATOCRIT 45.7 % (35.4-49); HEMOGLOBIN 15.2 GM/dL (11.7-16.9); MCH 28.7 pg (25.7-33.7); MCHC 33.2 g/dl (32.0-35.9); MEAN CELL VOLUME 86.2 fl (80-96); MEAN PLT VOLUME 8.4 fl (7.5-11.1); PLATELET COUNT 245 K/MM3 (134-434); RDW 12.9 % (11.9-15.9); WHITE BLOOD COUNT 5.8 K/mm3 (4.0-10.0)
[2019-12-19 07:15] LABS: ACTIVATED PTT 36.1 SECONDS (25.2-36.5)
[2019-12-19 07:43] LABS: BILIRUBIN,TOTAL 0.3 mg/dL (0.2-1); BLOOD UREA NITROGEN 13.1 mg/dL (7-18); CALCIUM 8.8 mg/dL (8.5-10.1); CREATININE 1.1 mg/dL (0.55-1.3); MAGNESIUM 1.9 mg/dL (1.8-2.4); POTASSIUM 4.1 mmol/L (3.5-5.1); TOT PROT 6.5 g/dl (6.4-8.2)
[2019-12-19 08:17] LABS: INR 1.15 (0.83-1.09); PROTHROMBIN TIME (PATIENT) 13.6 SEC (9.7-13.0)
--- NOTE | 2019-12-19 08:57 | PN ---
Progress Note, Physician History of Present Illness: 58 year old man with a MHx of Asthma, HTN, Epilepsy (on Tegretol), NIDDM, HLD, Hypothyroidism, Chronic back pain and Urinary retention who presents to the ER from PCP's office for lt leg swelling and pain for 6 days duration that started after having a road trip to [place], pt noted that his lt calf is swollen, tender and mildly numb. Pt went to see his PMD and was advised to come to ED for US doppler that showed extensive DVT. Denies any chest pain, dyspnea or palpitations. - Current Medication List Current Medications: Active Medications Albuterol Sulfate (Ventolin 0.083% Nebulizer Soln -) 1 amp NEB Q4H PRN PRN Reason: SHORT OF BREATH/WHEEZING Carbamazepine (Tegretol -) 200 mg PO BID [facility] Last Admin: 12/18/19 23:03 Dose: 200 mg Documented by: Enoxaparin Sodium (Lovenox -) 120 mg SQ Q12H ZAYRA Gabapentin (Neurontin -) 200 mg PO BID [facility] Last Admin: 12/18/19 23:03 Dose: 200 mg Documented by: Insulin Aspart (Novolog Vial Sliding Scale -) 1 vial SQ ACHS [facility]; Protocol Last Admin: 12/18/19 23:02 Dose: 8 unit Documented by: Insulin Detemir (Levemir Vial) 8 units SQ BID [facility] Levothyroxine Sodium (Synthroid -) 25 mcg PO DAILY@0700 [facility] Rosuvastatin Calcium (Crestor -) 20 mg PO [facility] - Objective Vital Signs: Vital Signs Temperature 97.8 F 12/19/19 06:44 Pulse Rate 75 12/19/19 06:44 Respiratory Rate 17 12/19/19 06:44 Blood Pressure 111/70 12/19/19 06:44 O2 Sat by Pulse Oximetry (%) 96 12/19/19 06:44 Cardiovascular: Yes: Regular Rate and Rhythm Respiratory: Yes: Regular, CTA Bilaterally Gastrointestinal: Yes: Normal Bowel Sounds, Soft Edema: Yes Edema: LLE: 2+ Labs: CBC, BMP 12/19/19 05:35 12/19/19 05:35 INR, PTT INR 1.15 (0.83-1.09) H 12/19/19 05:35 Problem List - Problems (1) Left leg DVT Assessment/Plan: US doppler showed lt extensive DVT involving lt femoral, popliteal, post tibial, lt deep femoral and lesser saph started on LMWH 1mg/Kg/dose BID, Creatinine clearance 73 mL/Min no family hx of VTE Labs reviewed Hem consult Code(s): I82.402 - ACUTE EMBOLISM AND THOMBOS UNSP DEEP VEINS OF L LOW EXTREM Qualifiers: Affected thrombotic vein of extremity: unspecified vein of extremity Chronicity: acute Qualified Code(s): I82.402 - Acute embolism and thrombosis of unspecified deep veins of left lower extremity (2) Diabetes Assessment/Plan: bgm insulin a1c endo consult Code(s): E11.9 - TYPE 2 DIABETES MELLITUS WITHOUT COMPLICATIONS Qualifiers: (3) Thyroiditis Assessment/Plan: hold synyhroid endo Code(s): E06.9 - THYROIDITIS, UNSPECIFIED
[2019-12-19] MEDS ORDERED: INSULIN SLIDING SCALE (NOVOLOG) 1 VIAL SQ ONE (09:24)
[2019-12-19] MEDS ORDERED: INSULIN (LEVEMIR) 100 UNITS/ML UNITS SQ ONE (09:24)
[2019-12-19] MEDS: INSULIN SLIDING SCALE (NOVOLOG) 1 VIAL SQ SCH ×4 (09:27→21:30)
[2019-12-19] MEDS ORDERED: LEVOTHYROXINE NA 25 MCG TABLET (FP) ONE (09:29)
[2019-12-19] MEDS ORDERED: carBAMazepine 200 MG TABLET ONE (09:29)
[2019-12-19] MEDS ORDERED: GABAPENTIN 100 MG CAPSULE ONE (09:29)
[2019-12-19] MEDS: LEVOTHYROXINE NA 25 MCG TABLET (FP) PO SCH (09:31)
[2019-12-19] MEDS: INSULIN (LEVEMIR) 100 UNITS/ML UNITS SQ SCH ×3 (09:32→21:36)
[2019-12-19] MEDS: carBAMazepine 200 MG TABLET PO SCH ×2 (09:33→22:21)
[2019-12-19] MEDS: GABAPENTIN 100 MG CAPSULE PO SCH ×2 (09:33→21:31)
[2019-12-19] MEDS ORDERED: ENOXAPARIN NA (PORCINE) 60 MG/0.6 ML DISP.SYRIN SQ ONE (11:07)
[2019-12-19] MEDS: ENOXAPARIN NA (PORCINE) 120 MG/0.8 ML DISP.SYRIN SQ SCH ×2 (11:11→22:51)
--- NOTE | 2019-12-19 12:37 | EKG ---
Test Reason : Blood Pressure : / mmHG Vent. Rate : 080 BPM Atrial Rate : 080 BPM P-R Int : 224 ms QRS Dur : 086 ms QT Int : 376 ms P-R-T Axes : 063 054 044 degrees QTc Int : 433 ms SINUS RHYTHM WITH 1ST DEGREE A-V BLOCK OTHERWISE NORMAL ECG WHEN COMPARED WITH ECG OF 04-SEP-2019 15:27, NONSPECIFIC T WAVE ABNORMALITY NO LONGER EVIDENT IN ANTERIOR LEADS Confirmed by PARAG ALCANTAR, LUCIO ([id number]) on 12/19/2019 12:37:09 PM Referred By: Confirmed By:LUCIO TUTTLE MD
--- NOTE | 2019-12-19 12:41 | CONSULT ---
Consultation: [facility] resident note REQUESTING PROVIDER: Dr. Arevalo CONSULT REQUEST: We have been asked to medically evaluate this patient for DVT. HISTORY OF PRESENT ILLNESS: Patient is a 59 year old male with past medical history of asthma, HTN, epilepsy, DM on insulin, HLD, hypothyroidism, chronic back pain and urinary retention, presented to the ED due to LLE pain and swelling for 5 days. Patient reported he went on a road trip to [place], and was seated for about 15 hours straight 5 days ago. During that time, he started experiencing left leg discomfort and numbness. Discomfort persisted, and noted left leg swelling as well. He went to his PCP 2 days ago and was advised to have a LE DVT. He came to our hospital for the LE US yesterday and he was found to have extensive LLE DVT. He was then advised admission. At the ED, patient received therapeutic lovenox. This morning, patient reported improvement of left leg pain and swelling. He denies any recent illness or sick contacts. Denies fevers, chills, headache, dizziness, chest pain, shortness of breath, abdominal pain, diarrhea, urinary symptoms. He follows up regularly with his PCP for routine screening. This is the first time he was diagnosed of a blood clot. He had colonoscopy a few years ago and was reported to be normal. He has no family history of blood disorder or cancer. PMHX:asthma, HTN, epilepsy, DM on insulin, HLD, hypothyroidism, chronic back pain and urinary retention PSHx: Urethroplasty Allergies: NKDA SHx: denies smoking, etoh drinking, illicit drug use REVIEW OF SYSTEMS: CONSTITUTIONAL: Absent: fever, chills, diaphoresis, generalized weakness, malaise, loss of appetite, weight change HEENT: Absent: rhinorrhea, nasal congestion, throat pain, throat swelling, difficulty swallowing, mouth swelling, ear pain, eye pain, visual changes CARDIOVASCULAR: Absent: chest pain, syncope, palpitations, irregular heart rate, lightheadedness, peripheral edema RESPIRATORY: Absent: cough, shortness of breath, dyspnea with exertion, orthopnea, wheezing, stridor, hemoptysis GASTROINTESTINAL: Absent: abdominal pain, abdominal distension, nausea, vomiting, diarrhea, constipation, melena, hematochezia GENITOURINARY: Absent: dysuria, frequency, urgency, hesitancy, hematuria, flank pain, genital pain MUSCULOSKELETAL: left leg swelling, left calf pain Absent: myalgia, arthralgia, joint swelling, back pain, neck pain SKIN: Absent: rash, itching, pallor HEMATOLOGIC/IMMUNOLOGIC: Absent: easy bleeding, easy bruising, lymphadenopathy, frequent infections ENDOCRINE: Absent: unexplained weight gain, unexplained weight loss, heat intolerance, cold intolerance NEUROLOGIC: Absent: headache, focal weakness or paresthesias, dizziness, unsteady gait, seizure, mental status changes, bladder or bowel incontinence PSYCHIATRIC: Absent: anxiety, depression, suicidal or homicidal ideation, hallucinations. PHYSICAL EXAMINATION Vital Signs - 24 hr 12/18/19 12/18/19 12/18/19 16:54 18:02 19:25 Temperature 98.4 F 97.9 F Pulse Rate 83 Pulse Rate [ 79 Radial] Respiratory 16 18 Rate Blood Pressure 90/56 L Blood Pressure 110/78 [Left Arm] O2 Sat by Pulse 100 99 99 Oximetry (%) 12/18/19 12/19/19 12/19/19 23:57 02:43 06:44 Temperature 98.2 F 98.2 F 97.8 F Pulse Rate Pulse Rate [ 76 73 75 Radial] Respiratory 18 17 Rate Blood Pressure Blood Pressure 102/73 90/62 111/70 [Left Arm] O2 Sat by Pulse 99 98 96 Oximetry (%) GENERAL: Awake, alert, and fully oriented, in no acute distress. HEAD: Normal with no signs of trauma. EYES: PERRLA, EOMI, sclera anicteric, conjunctiva clear. EARS, NOSE, THROAT: Moist mucous membranes. NECK: Normal range of motion, supple LUNGS: Breath sounds equal, clear to auscultation bilaterally. HEART: Regular rate and rhythm, normal S1 and S2 without murmur, rub or gallop. ABDOMEN: Soft, nontender, not distended, normoactive bowel sounds LOWER EXTREMITIES: 2+ pulses, warm, well-perfused. No calf tenderness. +LLE nonpitting edema. NEUROLOGICAL: Cranial nerves II-XII grossly intact. Normal speech. PSYCHIATRIC: Cooperative. Good eye contact. Appropriate mood and affect. SKIN: Warm, dry, normal turgor Laboratory Results - last 24 hr 12/18/19 12/18/19 12/18/19 17:40 17:40 17:40 WBC 6.7 RBC 5.30 Hgb 15.1 Hct 45.7 MCV 86.3 MCH 28.5 MCHC 33.1 RDW 12.8 Plt Count 242 D MPV 8.6 Absolute Neuts (auto) 3.7 Neutrophils % 55.1 Lymphocytes % 34.5 Monocytes % 7.4 Eosinophils % 2.3 Basophils % 0.7 Nucleated RBC % 0 PT with INR 12.00 INR 1.02 PTT (Actin FS) 29.6 Sodium 136 Potassium 4.5 Chloride 100 Carbon Dioxide 28 Anion Gap 7 L BUN 15.9 Creatinine 1.7 H Est GFR (CKD-EPI)AfAm 49.70 Est GFR (CKD-EPI)NonAf 42.88 POC Glucometer Random Glucose 412 H* Hemoglobin A1c % Calcium 9.0 Magnesium Total Bilirubin 0.2 AST 15 ALT 17 Alkaline Phosphatase 122 H Total Protein 7.0 Albumin 3.3 L TSH 12/18/19 12/19/19 12/19/19 22:13 05:35 05:35 WBC 5.8 RBC 5.30 Hgb 15.2 Hct 45.7 MCV 86.2 MCH 28.7 MCHC 33.2 RDW 12.9 Plt Count 245 MPV 8.4 Absolute Neuts (auto) Neutrophils % Lymphocytes % Monocytes % Eosinophils % Basophils % Nucleated RBC % PT with INR 13.60 H INR 1.15 H PTT (Actin FS) 36.1 Sodium Potassium Chloride Carbon Dioxide Anion Gap BUN Creatinine Est GFR (CKD-EPI)AfAm Est GFR (CKD-EPI)NonAf POC Glucometer 355 Random Glucose Hemoglobin A1c % Calcium Magnesium Total Bilirubin AST ALT Alkaline Phosphatase Total Protein Albumin TSH 12/19/19 12/19/19 12/19/19 05:35 05:35 09:20 WBC RBC Hgb Hct MCV MCH MCHC RDW Plt Count MPV Absolute Neuts (auto) Neutrophils % Lymphocytes % Monocytes % Eosinophils % Basophils % Nucleated RBC % PT with INR INR PTT (Actin FS) Sodium 141 Potassium 4.1 Chloride 106 Carbon Dioxide 28 Anion Gap 7 L BUN 13.1 Creatinine 1.1 Est GFR (CKD-EPI)AfAm 84.12 Est GFR (CKD-EPI)NonAf 72.58 POC Glucometer 260 Random Glucose 250 H Hemoglobin A1c % 13.9 H Calcium 8.8 Magnesium 1.9 Total Bilirubin 0.3 AST 11 L ALT 16 Alkaline Phosphatase 106 Total Protein 6.5 Albumin 3.0 L TSH 0.02 L D Active Medications Generic Name Dose Route Start Last Admin Trade Name Freq PRN Reason Stop Dose Admin Albuterol Sulfate 1 amp 12/19/19 00:49 Ventolin 0.083% Nebulizer Soln - NEB Q4H PRN SHORT OF BREATH/WHEEZING Carbamazepine 200 mg 12/18/19 22:30 12/19/19 09:33 Tegretol - PO 200 mg BID ZAYRA Administration Enoxaparin Sodium 120 mg 12/19/19 11:03 12/19/19 11:11 Lovenox - SQ 120 mg Q12H ZAYRA Administration Gabapentin 200 mg 12/18/19 22:30 12/19/19 09:33 Neurontin - PO 200 mg BID ZAYRA Administration Insulin Aspart 1 vial 12/18/19 22:00 12/19/19 09:27 Novolog Vial Sliding Scale - SQ Not Given ACHS [facility] Protocol Insulin Detemir 8 units 12/19/19 10:00 12/19/19 09:32 Levemir Vial SQ 8 units BID ZAYRA Administration Levothyroxine Sodium 25 mcg 12/19/19 07:00 12/19/19 09:31 Synthroid - PO 25 mcg DAILY@0700 ZAYRA Administration Rosuvastatin Calcium 20 mg 12/19/19 22:00 Crestor - PO HS [facility] ASSESSMENT/PLAN: Patient is a 59 year old male with past medical history of asthma, HTN, epilepsy, DM on insulin, HLD, hypothyroidism, chronic back pain and urinary retention, presented to the ED due to LLE pain and swelling for 5 days. #LLE DVT -LLE US: deep vein thromboses involving the left femoral, popliteal and posterior tibial vein as well as the left deep femoral vein and lesser saphenous vein. -He was started on therapeutic lovenox 1mg/kg, 120mg sq bid -hx of prolonged sitting, no family hx of VTE, no recent surgery, no trauma -age-approriate cancer screening -vascular surgery consulted. recs appreciated -may switch to DOAC pending vascular recs, would need AC for 3 months Dispo: We will continue to follow the patient. Thank you for this consultative opportunity. Visit type - Emergency Visit Emergency Visit: Yes ED Registration Date: 12/18/19 Care time: The patient presented to the Emergency Department on the above date and was hospitalized for further evaluation of their emergent condition. - New Patient This patient is new to me today: Yes Date on this admission: 12/19/19 - Critical Care Critical Care patient: No ATTENDING PHYSICIAN STATEMENT I saw and evaluated the patient. I reviewed the resident's note and discussed the case with the resident. I agree with the resident's findings and plan as documented. SUBJECTIVE: OBJECTIVE: ASSESSMENT AND PLAN:
[2019-12-19 16:21] VITALS: BMI 28.4
--- NOTE | 2019-12-19 16:43 | PN ---
Teaching Attending Note Name of Resident: Faiza Rosado ATTENDING PHYSICIAN STATEMENT I saw and evaluated the patient. I reviewed the resident's note and discussed the case with the resident. I agree with the resident's findings and plan as documented. 58y M with Asthma, Epilepsy, DMII presents with L LE edema x 6 days after returning from a road trip to [place]. PMD sent patient to ER for further workup; Duplex positive for Left Lower Extremity extending from post tibial, popliteal to the deep femoral. Started on lovenox 1mg/kg. Recommend vascular consult and patient has extensive clot burden. Patient can be transitioned to DOAC for provoked DVT and 3 months of anticoagulation
[2019-12-19] MEDS ORDERED: ENOXAPARIN NA (PORCINE) 120 MG/0.8 ML DISP.SYRIN SQ SCH (21:30)
[2019-12-19] MEDS ORDERED: INSULIN (NOVOLOG) ASPART 100 UNITS/ML 10ML VIAL ONE (21:47)
[2019-12-19] MEDS ORDERED: PT OWN MED DRAWER 7, Y5N ONE (21:48)
[2019-12-19] MEDS ORDERED: ROSUVASTATIN CA 20 MG TABLET (FP) PO SCH (22:00)
[2019-12-20] MEDS ORDERED: INSULIN (NOVOLOG) ASPART 100 UNITS/ML 10ML VIAL ONE ×3 (05:26→10:19)
[2019-12-20] MEDS: INSULIN SLIDING SCALE (NOVOLOG) 1 VIAL SQ SCH ×2 (06:19→11:44)
[2019-12-20] MEDS: LEVOTHYROXINE NA 25 MCG TABLET (FP) PO SCH (07:21)
--- NOTE | 2019-12-20 08:53 | PN ---
Progress Note, Physician - Current Medication List Current Medications: Active Medications Albuterol Sulfate (Ventolin 0.083% Nebulizer Soln -) 1 amp NEB Q4H PRN PRN Reason: SHORT OF BREATH/WHEEZING Carbamazepine (Tegretol -) 200 mg PO BID [facility] Last Admin: 12/19/19 22:21 Dose: 200 mg Documented by: Enoxaparin Sodium (Lovenox -) 120 mg SQ Q12H [facility] Last Admin: 12/19/19 22:51 Dose: 120 mg Documented by: Gabapentin (Neurontin -) 200 mg PO BID [facility] Last Admin: 12/19/19 21:31 Dose: 200 mg Documented by: Insulin Aspart (Novolog Vial Sliding Scale -) 1 vial SQ [facility]; Protocol Last Admin: 12/20/19 06:19 Dose: 4 unit Documented by: Insulin Detemir (Levemir Vial) 8 units SQ BID [facility] Last Admin: 12/19/19 21:36 Dose: Not Given Documented by: Levothyroxine Sodium (Synthroid -) 25 mcg PO DAILY@0700 [facility] Last Admin: 12/20/19 07:21 Dose: Not Given Documented by: Rosuvastatin Calcium (Crestor -) 20 mg PO HS [facility] Last Admin: 12/19/19 21:30 Dose: 20 mg Documented by: - Objective Vital Signs: Vital Signs Temperature 98.4 F 12/20/19 05:00 Pulse Rate 73 12/20/19 05:00 Respiratory Rate 18 12/20/19 05:00 Blood Pressure 123/78 12/20/19 05:00 O2 Sat by Pulse Oximetry (%) 98 12/20/19 05:00 Labs: CBC, BMP 12/19/19 05:35 12/19/19 05:35 INR, PTT INR 1.15 (0.83-1.09) H 12/19/19 05:35 Problem List - Problems (1) Left leg DVT Code(s): I82.402 - ACUTE EMBOLISM AND THOMBOS UNSP DEEP VEINS OF L LOW EXTREM Qualifiers: Affected thrombotic vein of extremity: unspecified vein of extremity Chronicity: acute Qualified Code(s): I82.402 - Acute embolism and thrombosis of unspecified deep veins of left lower extremity (2) Diabetes Code(s): E11.9 - TYPE 2 DIABETES MELLITUS WITHOUT COMPLICATIONS Qualifiers: (3) Thyroiditis Code(s): E06.9 - THYROIDITIS, UNSPECIFIED
[2019-12-20] MEDS: GABAPENTIN 100 MG CAPSULE PO SCH (10:23)
[2019-12-20] MEDS: carBAMazepine 200 MG TABLET PO SCH (10:23)
[2019-12-20] MEDS: INSULIN (LEVEMIR) 100 UNITS/ML UNITS SQ SCH (10:31)
--- NOTE | 2019-12-20 11:02 | CONSULT ---
- Consultation REQUESTING PROVIDER: CONSULT REQUEST: We have been asked to surgically evaluate this patient for Left leg pain/swelling. Hospitalist:Lea Arevalo HISTORY OF PRESENT ILLNESS: The patient is a 59 yo male who presented to the ER for pain in his LLE and swelling. He drove to [place] last Monday and noted that his leg was swollen and tender. He returned earlier this week(Monday) and was seen and evaluated for the pain in his calf. He denies any SOB. Overall his leg swelling and pain have improved since admission. He denies any history of clotting history in the past for himself or his family. PMHx: asthma, DM, HTN, epilepsy, hypothroidism, HLD PSHx: s/p TURP for BPH Home Medications Medication Instructions Recorded Carbamazepine [Tegretol -] 200 mg PO BID #60 tablet 07/22/19 Gabapentin [Neurontin -] 200 mg PO BID 09/04/19 Insulin Aspart [Novolog] 12 unit SQ DAILY 09/04/19 Insulin NPH Hum/Reg Insulin Hm 24 unit SQ DAILY 09/04/19 [Novolin 70-30 Flexpen] Levothyroxine [Synthroid -] 25 mcg PO DAILY 09/04/19 Metformin HCl [Glucophage] 500 mg PO BID 09/04/19 Rosuvastatin Calcium [Crestor] 20 mg PO DAILY 09/04/19 Allergies Allergy/AdvReac Type Severity Reaction Status Date / Time No Known Allergies Allergy Verified 12/18/19 16:56 REVIEW OF SYSTEMS: CONSTITUTIONAL: Absent: fever, chills CARDIOVASCULAR: Absent: chest pain, palpitations, irregular heart rate, Present: peripheral edema RESPIRATORY: Absent: cough, shortness of breath, dyspnea with exertion GASTROINTESTINAL: Routine colonscopies have been negative for masses/disease. No history of GI bleed GENITOURINARY: Absent: dysuria, hematuria, MUSCULOSKELETAL: Absent: back pain, neck pain HEMATOLOGIC/IMMUNOLOGIC: Absent: easy bleeding, easy bruising, lymphadenopathy PHYSICAL EXAM: GEN: A&0x3, NAD LUNGS: Clear to auscultation bilat anteriorly. No wheezes, and no crackles. No accessory muscle use. HEART: Regular rate and rhythm. No murmurs ABDOMEN: Soft, nontender, not distended LOWER EXTREMITIES: 2+DP/Pt/femoral pulses b/l, warm, well-perfused. Right leg with mild swelling at the ankle. Mild right calf tenderness. 5/5 dorsi/plantar flexion NEUROLOGICAL: Normal speech, gait not observed. PSYCH: Cooperative. Good eye contact. Appropriate mood and affect. Vital Signs Temperature 98.5 F 12/20/19 09:00 Pulse Rate 75 12/20/19 09:00 Respiratory Rate 18 12/20/19 09:00 Blood Pressure 109/72 12/20/19 09:00 O2 Sat by Pulse Oximetry (%) 97 12/20/19 09:00 Lab Results WBC 5.8 K/mm3 (4.0-10.0) 12/19/19 05:35 RBC 5.30 M/mm3 (4.00-5.60) 12/19/19 05:35 Hgb 15.2 GM/dL (11.7-16.9) 12/19/19 05:35 Hct 45.7 % (35.4-49) 12/19/19 05:35 MCV 86.2 fl (80-96) 12/19/19 05:35 MCHC 33.2 g/dl (32.0-35.9) 12/19/19 05:35 RDW 12.9 % (11.9-15.9) 12/19/19 05:35 Plt Count 245 K/MM3 (134-434) 12/19/19 05:35 INR 1.15 (0.83-1.09) H 12/19/19 05:35 Sodium 141 mmol/L (136-145) 12/19/19 05:35 Potassium 4.1 mmol/L (3.5-5.1) 12/19/19 05:35 Chloride 106 mmol/L (98-107) 12/19/19 05:35 Carbon Dioxide 28 mmol/L (21-32) 12/19/19 05:35 Anion Gap 7 MMOL/L (8-16) L 12/19/19 05:35 BUN 13.1 mg/dL (7-18) 12/19/19 05:35 Creatinine 1.1 mg/dL (0.55-1.3) 12/19/19 05:35 Random Glucose 250 mg/dL (74-106) H 12/19/19 05:35 Calcium 8.8 mg/dL (8.5-10.1) 09/10/20 05:35 vascular duplex 12/18: noncompression of left deep femoral, femoral, popliteal. CFV and greater saphrenous patent. Problem List - Problems (1) Left leg DVT Assessment/Plan: Pt with provoked acute LLE DVT on therapeutic dose of lovenox. No need for acute surgical intervention, he is able to be anticoagulated and plan is for transition to eliquis. Treatment x 6 months Spoke with the patient and advised him to monitor leg for swelling and elevate LLE to improve swelling. Hematology consult D/w Dr. Pinto Problems reviewed: Yes Code(s): I82.402 - ACUTE EMBOLISM AND THOMBOS UNSP DEEP VEINS OF L LOW EXTREM Qualifiers: Affected thrombotic vein of extremity: unspecified vein of extremity Chronicity: acute Qualified Code(s): I82.402 - Acute embolism and thrombosis of unspecified deep veins of left lower extremity
[2019-12-20] MEDS: ENOXAPARIN NA (PORCINE) 120 MG/0.8 ML DISP.SYRIN SQ SCH (11:45)
--- NOTE | 2019-12-20 13:07 | DS ---
Physical Examination Vital Signs: Vital Signs Temperature 98.5 F 12/20/19 09:00 Pulse Rate 75 12/20/19 09:00 Respiratory Rate 18 12/20/19 09:00 Blood Pressure 109/72 12/20/19 09:00 O2 Sat by Pulse Oximetry (%) 97 12/20/19 09:00 Labs: CBC, BMP 12/19/19 05:35 12/19/19 05:35 Discharge Summary Problems reviewed: Yes Reason For Visit: DEEP VEIN THROMBOSIS (DVT) OF LEFT LOWER EXTREMITY Current Active Problems Left leg DVT (Acute) Condition: Good - Instructions Diet, Activity, Other Instructions: Start Eliquis 10 mg bid x 7 days then 5 mg bid Referrals: Mc Estrada MD, MD [Primary Care Provider] - 1 Week Kevin Pinto DO [Staff Physician] - Yoseph Bailey MD [Staff Physician] - 2 Weeks Disposition: HOME - Home Medications Comprehensive Discharge Medication List: Ambulatory Orders Carbamazepine [Tegretol -] 200 mg PO BID #60 tablet 07/22/19 Gabapentin [Neurontin -] 200 mg PO BID 09/04/19 Insulin Aspart [Novolog] 12 unit SQ DAILY 09/04/19 Insulin NPH Hum/Reg Insulin Hm [Novolin 70-30 Flexpen] 24 unit SQ DAILY 09/04/19 Levothyroxine [Synthroid -] 25 mcg PO DAILY 09/04/19 Metformin HCl [Glucophage] 500 mg PO BID 09/04/19 Rosuvastatin Calcium [Crestor] 20 mg PO DAILY 09/04/19 Apixaban [Eliquis -] 5 mg PO BID #67 tablet 12/20/19
[2019-12-20 14:05] VITALS: BP 136/89; PULSE 77; TEMP 98.4
--- NOTE | 2019-12-20 16:50 | CONSULT ---
Consult Consult Specialty:: Endocrine Referred by:: Dr.Annabi Tate Reason for Consultation:: DMT1 - History of Present Illness Chief Complaint: high sugars History of Present Illness: 59 y male w dmt1 ,htn,hypothyroidism,seizures,asthma,admitted with rt leg swelling and dvt has recent long drive and felt leg getting painful swollen found to have rle dvt,started on anticoagulant insulin dose titration,denies low blood sugars,has had dificulty finding endocrine on his insurance plan.takes insulin twice and sometimes frequent high sugars despite insulin dose. - Past Medical History Endocrine: Yes: Diabetes Mellitus - Alcohol/Substance Use Hx Alcohol Use: No - Smoking History Smoking history: Never smoked Have you smoked in the past 12 months: No Home Medications - Allergies Allergies/Adverse Reactions: Allergies Allergy/AdvReac Type Severity Reaction Status Date / Time No Known Allergies Allergy Verified 12/18/19 16:56 - Home Medications Home Medications: Ambulatory Orders Carbamazepine [Tegretol -] 200 mg PO BID #60 tablet 07/22/19 Gabapentin [Neurontin -] 200 mg PO BID 09/04/19 Insulin Aspart [Novolog] 12 unit SQ DAILY 09/04/19 Insulin NPH Hum/Reg Insulin Hm [Novolin 70-30 Flexpen] 24 unit SQ DAILY 09/04/19 Levothyroxine [Synthroid -] 25 mcg PO DAILY 09/04/19 Metformin HCl [Glucophage] 500 mg PO BID 09/04/19 Rosuvastatin Calcium [Crestor] 20 mg PO DAILY 09/04/19 Apixaban [Eliquis -] 5 mg PO BID #67 tablet 12/20/19 Family Medical History Family Hx Diabetes: Grandmother (maternal), Grandfather (paternal) Review of Systems - Review of Systems Constitutional: reports: Weakness Eyes: reports: No Symptoms HENT: reports: No Symptoms Neck: reports: No Symptoms Cardiovascular: reports: No Symptoms Respiratory: reports: No Symptoms Gastrointestinal: reports: Constipation, Nausea Genitourinary: reports: No Symptoms Breasts: reports: No Symptoms Reported Integumentary: reports: No Symptoms Neurological: reports: Numbness Endocrine: reports: Unexplained Weight Gain Physical Exam Vital Signs: Vital Signs Temperature 98.4 F 12/20/19 14:04 Pulse Rate 77 12/20/19 14:04 Respiratory Rate 12/20/19 14:04 Blood Pressure 136/89 12/20/19 14:04 O2 Sat by Pulse Oximetry (%) 98 12/20/19 14:04 Musculoskeletal: Yes: Joint Swelling, Muscle Pain Labs: CBC, BMP 12/19/19 05:35 12/19/19 05:35 Problem List - Problems (1) Abnormal EKG Problems reviewed: Yes Code(s): R94.31 - ABNORMAL ELECTROCARDIOGRAM [ECG] [EKG] (2) Acute kidney injury Code(s): N17.9 - ACUTE KIDNEY FAILURE, UNSPECIFIED (3) Altered mental status Code(s): R41.82 - ALTERED MENTAL STATUS, UNSPECIFIED Qualifiers: Altered mental status type: unspecified Qualified Code(s): R41.82 - Altered mental status, unspecified (4) Diabetes Code(s): E11.9 - TYPE 2 DIABETES MELLITUS WITHOUT COMPLICATIONS Qualifiers: (5) Torres catheter problem Code(s): T83.9XXA - UNSP COMPLICATION OF GENITOURINARY PROSTH DEV/GRFT, INIT Qualifiers: Encounter type: subsequent encounter Qualified Code(s): T83.9XXD - Unspecified complication of genitourinary prosthetic device, implant and graft, subsequent encounter (6) Hyperglycemia Code(s): R73.9 - HYPERGLYCEMIA, UNSPECIFIED (7) Hyperglycemia due to diabetes mellitus Code(s): E11.65 - TYPE 2 DIABETES MELLITUS WITH HYPERGLYCEMIA (8) Hyponatremia Code(s): E87.1 - HYPO-OSMOLALITY AND HYPONATREMIA Assessment/Plan DMt1 uncontrolled neuropathy htn abnormal tft Laboratory Tests 09/04/19 12/19/19 12/19/19 15:18 05:35 09: POC Glucometer 260 Hemoglobin A1c % 13.9 H TSH 0.66 D 12/19/19 12/19/19 12/20/19 16:33 20:59 06:12 POC Glucometer 329 328 260 Hemoglobin A1c % TSH 12/20/19 11:40 POC Glucometer 295 Hemoglobin A1c % TSH plan: \bgm achsnovolog scale \levemir dose 8 units bid follow up with pmd and endocrine
== END 2019-12-20 15:31 | disposition home or self-care (01) | DRG 300 ==
LOC: JER 16:42 → JERBED 19:02 → J7W 12-19 15:45
PROVIDERS: ADMIT Internal Medicine; ATTEND Family Medicine
DX: I82.412 Acute embolism and thrombosis of left femoral vein (principal); N17.9 Acute kidney failure, unspecified; I10 Essential (primary) hypertension; E11.65 Type 2 diabetes mellitus with hyperglycemia; E03.9 Hypothyroidism, unspecified; E11.40 Type 2 diabetes mellitus with diabetic neuropathy, unspecified; J45.909 Unspecified asthma, uncomplicated; G40.909 Epilepsy, unspecified, not intractable, without status epilepticus; I82.432 Acute embolism and thrombosis of left popliteal vein; I82.442 Acute embolism and thrombosis of left tibial vein; I44.0 Atrioventricular block, first degree; M54.9 Dorsalgia, unspecified; E78.5 Hyperlipidemia, unspecified; E06.9 Thyroiditis, unspecified
CPT/HCPCS: 36415; 71046-TC-FY; 80053; 82607; 82962; 83036; 83735; 84439; 84443; 85025; 85027; 85610; 85730; 93005; 93010; 99285-25; U0003

== ENCOUNTER 2020-01-26 15:39 | Emergency (ER) | payer MEDICARE, OTHER ==
[2020-01-26 15:45] VITALS: BMI 28.7
--- OUTSIDE RECORDS SUMMARY | 2020-01-26 15:54 | XMS ---
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 [facility] [Mass/volume] in styleCode="Bold"> Chris hs Serum or Plasma Bilirubin Total Medical </content>0.3 Center MG/DL<content styleCode="Italic s"> (0.2-1.3 MG/DL)</content> ID Date Data Source [id number] 06/30/2019 05:48:00 AM EDT [facility] [place] [id number] Corporation Name Value Range Interpretation Description Data Sup porting Code Source(s) Document(s ) Sodium 136 mEq/L 135-14 <td> [place] [Moles/volume] 5 06/30/2019 [place] [facility] Serum or mEq/L 05:48</td><td Health Care Plasma > RAREFORM Sodium-Serum </td><td> 136
(135-145) mEq/L </td> Glucose 206 mg/dL 70-105 <td> [place] [Mass/volume] mg/dL 06/30/2019 [facility] in Blood 05:48</td><td Health Care > RAREFORM Glucose-Serum </td><td><pa ragraph styleCode="Jorge ld"> 206 H </paragraph>< br/> (70-105) mg/dL </td> Potassium 3.3 mEq/L 3.5-5. <td> [place] [Moles/volume] 1 06/30/2019 [facility] in Serum or mEq/L 05:48</td><td Health Care Plasma > RAREFORM Potassium-Ser um </td><td><par agraph styleCode="Jorge ld"> 3.3 L </paragraph>< br/> (3.5-5.1) mEq/L </td> Urea nitrogen 6 mg/dL 6-22 <td> [place] [Mass/volume] mg/dL 06/30/2019 [facility] in Blood 05:48</td><td Health Care > BUN RAREFORM </td><td> 6
(6-22) mg/dL </td> Chloride 106 mEq/L 98-107 <td> [place] [Moles/volume] mEq/L 06/30/2019 [facility] in Serum or 05:48</td><td Health Care Plasma > Chloride RAREFORM </td><td> 106
(98-107) mEq/L </td> Carbon dioxide, 21 mEq/L 22-30 <td> [place] total mEq/L 06/30/2019 [facility] [Moles/volume] 05:48</td><td Health Care in Serum or > CO2 Corporation Plasma </td><td><par agraph styleCode="Jorge ld"> 21 L </paragraph>< br/> (22-30) mEq/L </td> Aspartate 21 U/L 4-35 <td> [place] aminotransferas U/L 06/30/2019 [facility] e [Enzymatic 05:48</td><td Health Care activity/volume > AST (SGOT) RAREFORM ] in Serum or </td><td> Plasma 21
(4-35) U/L </td> Bilirubin.total 0.4 mg/dL 0.2-1. <td> [place] [Mass/volume] 3 06/30/2019 [facility] in Blood mg/dL 05:48</td><td Health Care > Bilirubin - Corporation Total </td><td> 0.4
(0.2-1.3) mg/dL </td> Proteins - 5.7 g/dL 6.4-8. <td> [place] Total 3 g/dL 06/30/2019 [facility] 05:48</td><td Health Care > Proteins - Corporation Total </td><td><par agraph styleCode="Jorge ld"> 5.7 L </paragraph>< br/> (6.4-8.3) g/dL </td> Creatinine 0.91 mg/dL 0.72-1 <td> [place] [Moles/volume] .25 06/30/2019 [facility] in Serum or mg/dL 05:48</td><td Health Care Plasma > Creatinine. Corporation </td><td> 0.91
(0.72-1.25) mg/dL </td> Alanine 24 U/L 6-55 <td> [place] aminotransferas U/L 06/30/2019 [facility] e [Enzymatic 05:48</td><td Health Care activity/volume > ALT (SGPT) Corporation ] in Serum or </td><td> Plasma 24
(6-55) U/L </td> Globulin 2.6 gm/dL 2.9-4. <td> [place] [Mass/volume] 0 06/30/2019 [facility] in Serum gm/dL 05:48</td><td Health Care > Globulin Corporation </td><td><par agraph styleCode="Jorge ld"> 2.6 L </paragraph>< br/> (2.9-4.0) gm/dL </td> Albumin 3.1 g/dL 3.4-4. <td> [place] [Mass/volume] 8 g/dL 06/30/2019 [facility] in Serum or 05:48</td><td Health Care Plasma > Albumin Corporation </td><td><par agraph styleCode="Jorge ld"> 3.1 L </paragraph>< br/> (3.4-4.8) g/dL </td> Calcium 8.1 mg/dL 8.6-10 <td> [place] [Mass/volume] .2 06/30/2019 [facility] in Blood mg/dL 05:48</td><td Health Care > Calcium Corporation </td><td><par agraph styleCode="Jorge ld"> 8.1 L </paragraph>< br/> (8.6-10.2) mg/dL </td> Anion gap in 9 mEq/L 7-13 <td> [place] Serum or Plasma mEq/L 06/30/2019 [facility] 05:48</td><td Health Care > Anion Gap Corporation </td><td> 9
(7-13) mEq/L </td> Phosphate 2.2 mg/dL 2.3-4. <td> [place] [Mass/volume] 7 06/30/2019 [facility] in Serum or mg/dL 05:48</td><td Health Care Plasma > Inorganic Corporation Phosphorus </td><td><par agraph styleCode="Jorge ld"> 2.2 L </paragraph>< br/> (2.3-4.7) mg/dL </td> Hemolysis index No Hemolysis <td> [facility] or 06/30/2019 [facility] Plasma 05:48</td><td Health Care > Hemolysis Corporation Index </td><td> No Hemolysis
</td> Magnesium 1.9 mg/dL 1.6-2. <td> [place] [Mass/volume] 6 06/30/2019 [facility] in Serum or mg/dL 05:48</td><td Health Care Plasma > Magnesium Corporation Level </td><td> 1.9
(1.6-2.6) mg/dL </td> Lipemic index Grossly <td> [facility] or 06/30/2019 [facility] Plasma 05:48</td><td Health Care > Lipemia Corporation Index </td><td> Grossly
</td> Icteric index Non Icteric <td> [facility] or 06/30/2019 [facility] Plasma 05:48</td><td Health Care > Icteric Corporation Index </td><td> Non Icteric
</td> Magnesium >14.0 <td> [place] [Mass/volume] Increased 06/29/2019 [facility] in Serum or risk for 06:22</td><td Health Care Plasma diabetes > Hemoglobin Corporation mellitus is A1C seen in </td><td> patients >14.0 with HgA1C
values Increased between risk for 5.7-6.4%. diabetes Values > or mellitus is = 6.5% are seen in considered patients with diagnostic HgA1C values of diabetes mellitus.
Hemolytic between anemias, 5.7-6.4%. hemoglobinop Values > or = athies, or 6.5% are recent considered transfusion diagnostic of may impact diabetes HbA1c
results. mellitus. Clinical correlation
is Hemolytic recommended. anemias, hemoglobinopa walter, or recent ========= transfusion ESTIMATED may impact AVERAGE
GLUCOSE HbA1c (eAG) results. Clinical correlation --------- is RELATIONSHIP recommended. BETWEEN A1C AND eAG
========= ======= A1C(%)
eAG(mg/dL) ESTIMATED 6 AVERAGE ---126 GLUCOSE (eAG) 7 --154
8 --183 9 ------- --212
10 RELATIONSHIP ---240 BETWEEN A1C 11 AND eAG ---269
12 ---298 Source: ======== Adapted from
[place] A1C(%) Diabetes eAG(mg/dL) Association. Standards of
medical 6 care in -126 diabetes-201
4. Diabetes 7 Care.2014;37 -154 (Supp
1):S14-S80, 8 table 8. -183
9 -212
10 --240
11 --269
12 --298
Source: Adapted from [place] Diabetes Association. Standards of medical
care in diabetes-2014 . Diabetes Care.2014;37( Supp 1):S14-S80, table 8.
=====
<paragra ph styleCode="Jorge ld"> H </paragraph>< br/> (4.0-5.6) % </td> Glucose 141 mg/dL 70-105 <td> [place] [Mass/volume] mg/dL 06/30/2019 [facility] in [facility] 17:35</td><td Health Care blood by > Glucose - Corporation Glucometer Finger Stick </td><td><par agraph styleCode="Jorge ld"> 141 H </paragraph>< br/> (70-105) mg/dL </td> ID Date Data Source [id number] 06/29/2019 06:22:00 AM EDT [facility] [place] [id number] Corporation Name Value Range Interpretation Description Data Sup porting Code Source(s) Document(s ) ABO O POS <td> 06/29/2019 [facility] Verification 06:22</td><td> [facility] ABO Care Verification Corporation </td><td> O POS
</td> Procedure Social History Code Duration Value Status Description Data Source(s ) Smoking 08/30/2019 09:47:00 AM Not Known completed Not Known [facility] EDT Center Smoking 08/30/2019 09:15:00 AM Not Known completed Not Known [facility] EDT [place] Smoking 08/30/2019 09:15:00 AM Not Known completed Not Known [facility] [place] Vital Signs ID Date Data Source UNK Name Value Range Interpretation Code Description Data Source(s) Respiratory rate 13 /min 13 /min [facility] Oxygen saturation 99 % 99 % [facility] blood [facility] by Pulse oximetry Heart rate 76 /min 76 /min [facility] Diastolic blood 72 mm[Hg] 72 mm[Hg] [facility] Systolic blood 117 mm[Hg] 117 mm[Hg] [facility] Body temperature 37.778451 37.478944 [facility] Respiratory rate 19 /min 19 /min [facility] Oxygen saturation 98 % 98 % [facility] Arterial blood [facility] by Pulse oximetry Heart rate 75 /min 75 /min [facility] Diastolic blood 61 mm[Hg] 61 mm[Hg] [facility] Systolic blood 107 mm[Hg] 107 mm[Hg] [facility] Respiratory rate 17 /min 17 /min [facility] Oxygen saturation 99 % 99 % [facility] blood [facility] by Pulse oximetry Heart rate 74 /min 74 /min [facility] Diastolic blood 73 mm[Hg] 73 mm[Hg] [facility] Systolic blood 116 mm[Hg] 116 mm[Hg] [facility] Respiratory rate 18 /min 18 /min [facility] Oxygen saturation 100 % 100 % [facility] blood [facility] by Pulse oximetry Heart rate 94 /min 94 /min [facility] Diastolic blood 48 mm[Hg] 48 mm[Hg] [facility] Systolic blood 81 mm[Hg] 81 mm[Hg] [facility] Body temperature 36.492006 36.662349 [facility] Respiratory rate 18 /min 18 /min [facility] Oxygen saturation 98 % 98 % [facility] blood [facility] by Pulse oximetry Heart rate 79 /min 79 /min [facility] Diastolic blood 64 mm[Hg] 64 mm[Hg] [facility] Systolic blood 112 mm[Hg] 112 mm[Hg] [facility] Body temperature 36.211164 [id number] [facility] Body weight 99.007576 99.062745 kg [facility] hs Measured kg Medical Center Body temperature 36.183170 36.102788 [facility] Body height 187.316845 187.937725 [facility] Body mass index 28.2 kg/m2 28.2 kg/m2 [facility] (BMI) [Ratio] Medical [address] Diastolic blood 85 {} Normal (applies to 85 {} [place] pressure non-numeric results) [facility] on Systolic blood 109 {} Normal (applies to 109 {} [place] pressure non-numeric results) [facility] on First Respiration 18.0000 {} Normal (applies to 18.0000 {} [place] rate Set non-numeric results) [facility] on Heart rate 70.0000 {} Normal (applies to 70.0000 {} [facility] non-numeric results) [facility] on Body temperature 98.7000 {} Normal (applies to 98.7000 {} [place] non-numeric results) [facility] on Mean blood 93.0000 {} Normal (applies to 93.0000 {} [facility] [place] pressure non-numeric results) [facility] wt - obtain Normal (applies to {} [facility] [place] non-numeric results) [facility] weight - kg 88.3000 {} Normal (applies to 88.3000 {} [facility] [place] non-numeric results) [facility] on Patient Treatment Plan of Care Planned Activity Planned Date Details Description Data Source (s) Insulin Humulin R 06/28/2019 10:13:48 PM [facility] EDT Care Corporatio n
[2020-01-26] MEDS ORDERED: SODIUM CHLORIDE 1,000 ML IV STA (16:01)
--- NOTE | 2020-01-26 16:15 | PDOC ---
History of Present Illness - General Chief Complaint: Blood Sugar Problem Stated Complaint: SUGAR PROBLEMS Time Seen by Provider: 01/26/20 16:12 - History of Present Illness Initial Comments: 01/26/20 16:14 HPI: This is a 59 y/o male with a PMH of asthma, HTN, epilepsy, IDDM, HLD, and recently diagnosed extensive lower extremity DVT (anticoagulated with eliquis) presenting to the ED because of elevated blood sugar. According to the patient he took his blood sugar at loren,e, found it to be in the 200's, ate a turkey sandwich, retook it, and saw it was in the 500's. He planned on coming to the ED but 1.5 hours prior he started feeling SOB which concerned him because of his known DVT. He admits to generalized weakness. Denies chest pain, fever/chills, N/V, abdominal pain, or lightheadedness. Reports that he took his Novolin this morning but did not take his Novolog. ROS: GENERAL/CONSTITUTIONAL: No fever/chills, diaphoresis. Admits to generalized weakness HEENT: No change in vision. No ear pain. No sore throat. CARDIOVASCULAR: No chest pain, palpitations or peripheral edema RESPIRATORY: Yes SOB prior to arrival, Denies dyspnea with exertion, cough, wheezing, or hemoptysis. GASTROINTESTINAL: No abdominal pain, nausea, vomiting, diarrhea or constipation. GENITOURINARY: No dysuria, frequency, or change in urination. MUSCULOSKELETAL: No joint or muscle swelling or pain. SKIN: No rash or hives NEUROLOGIC: No headache, vertigo, focal weakness, loss of consciousness, or change in strength/sensation. ENDOCRINE: No increased thirst. No unexplained weight loss. HEMATOLOGIC/LYMPHATIC: No anemia, easy bleeding, or history of blood clots. PMH: asthma, HTN, epilepsy, IDDM, HLD, and recently diagnosed extensive lower extremity DVT PSx: Denied Social Hx: Denied etoh, tobacco, drug use Meds: See nurse note Allergies: See nurse note PE: GENERAL: Patient is somnolent but arousable. Able to answer questions and relay events leading up to arrival to ED. HEENT: Normocephalic, atraumatic. PERRLA, EOMI. No conjunctival pallor. Moist mucous membranes. NECK: Normal ROM and supple. No lymphadenopathy, JVD, or masses. CARDIOVASCULAR: Tachycardic. normal S1 and S2, no murmurs, rubs or gallops PULMONARY: No respiratory distress. Breath sounds equal, clear to auscultation bilaterally. No wheezes, rales or rhonchi. ABDOMEN: Soft, nontender, normoactive bowel sounds. No guarding, no rebound. No masses EXTREMITIES: Normal range of motion, no edema or erythema, no calf tenderness. No clubbing or cyanosis. NEUROLOGICAL: Cranial nerves II through XII grossly intact. Normal speech, normal gait SKIN: Warm, Dry. Patient appears dehydrated. No rashes or lesions noted. Normal capillary refill. MDM: This is a 59 y/o male with a PMH of asthma, HTN, epilepsy, IDDM, HLD, and recently diagnosed extensive lower extremity DVT anticoagulated with eliquis presenting to the ED because of elevated blood sugar. - Known poorly controlled diabetic, has previously had glucose levels in the 600s during hospital stays - Patient is with no respiratory distress. Saturating in the high 90's on room air. - Patient is hypotensive on arrival 72/40, however patient is severely dehydrated CBC, CMP, Betahydroxy, VBG, Troponin, UA EKG, CXR - Start NS because fluid down Labs notable for: VBG: No acidosis pH 7.357 No leukocytosis Random glucose 630 New MICHAEL: BUN 21.8 Creat 1.7 Repeat BP is 106/54 after 2L NS - Patient is not acidotic, no anion gap, electrolytes are WNL. Creatinine elevated, Glucose high. - Will give fluids for MICHAEL and suspected HHS - Patient signed out to night team Past History - Medical History Allergies/Adverse Reactions: Allergies Allergy/AdvReac Type Severity Reaction Status Date / Time No Known Allergies Allergy Verified 01/26/20 15:45 Home Medications: Ambulatory Orders Carbamazepine [Tegretol -] 200 mg PO BID #60 tablet 07/22/19 Gabapentin [Neurontin -] 200 mg PO BID 09/04/19 Insulin Aspart [Novolog] 12 unit SQ DAILY 09/04/19 Insulin NPH Hum/Reg Insulin Hm [Novolin 70-30 Flexpen] 24 unit SQ DAILY 09/04/19 Levothyroxine [Synthroid -] 25 mcg PO DAILY 09/04/19 Metformin HCl [Glucophage] 500 mg PO BID 09/04/19 Rosuvastatin Calcium [Crestor] 20 mg PO DAILY 09/04/19 Apixaban [Eliquis -] 5 mg PO BID #67 tablet 12/20/19 Anemia: No Asthma: Yes Cancer: No Cardiac Disorders: No CVA: No COPD: No CHF: No Dementia: No Diabetes: Yes GI Disorders: No Disorders: Yes HTN: Yes Hypercholesterolemia: Yes Liver Disease: No Seizures: Yes Thyroid Disease: Yes (hypothyroidism) - Surgical History Abdominal Surgery: No Appendectomy: No Cardiac Surgery: No Cholecystectomy: No Lung Surgery: No Neurologic Surgery: No Orthopedic Surgery: No - Immunization History Immunization Up to Date: Yes - Psycho-Social/Smoking History Smoking History: Never smoked Have you smoked in the past 12 months: No *Physical Exam - Vital Signs Last Vital Signs Temp Pulse Resp BP Pulse Ox 98 F 68 18 72/40 L 99 01/26/20 15:40 01/26/20 15:40 01/26/20 15:40 01/26/20 15:40 01/26/20 15:40 ED Treatment Course - LABORATORY CBC & Chemistry Diagram: 01/26/20 16:18 01/26/20 22:18 - ADDITIONAL ORDERS Additional order review: Laboratory Results 01/26/20 16:06 POC Glucometer > 600 01/26/20 16:06 POC Glucometer > 600 Discharge - Discharge Information Problems reviewed: Yes Clinical Impression/Diagnosis: Hyperglycemia due to diabetes mellitus Condition: Improved Disposition: HOME - Follow up/Referral Referrals: Mc Estrada MD, MD [Primary Care Provider] - - Patient Discharge Instructions Patient Printed Discharge Instructions: How to Check Your Blood Glucose, DI for Hyperglycemia -- Adult Additional Instructions: You were seen with high blood glucose. This improved with medication. However, it is extremely important that you have closer control of your blood sugar, as this can lead to blindness, kidney issues, cardiac issues, and premature . Please take your insulin as prescribed. Follow up with your primary care doctor within one week. Return to the ER if you develop new or worsening symptoms. - Post Discharge Activity
[2020-01-26 16:29] LABS: BASO % 0.5 % (0-2.0); EOS % 0.6 % (0-4.5); HEMOGLOBIN 15.4 GM/dL (11.7-16.9); LYMPH % 29.2 % (8-40); MCH 29.1 pg (25.7-33.7); MCHC 33.5 g/dl (32.0-35.9); MEAN CELL VOLUME 87.1 fl (80-96); MEAN PLT VOLUME 9.2 fl (7.5-11.1); MONO % 7.1 % (3.8-10.2); NEUT % 62.6 % (42.8-82.8); PLATELET COUNT 210 K/MM3 (134-434); RBC 5.28 M/mm3 (4.00-5.60); RDW 13.8 % (11.9-15.9); VENOUS BASE EXCESS -3.7 mmol/L (-2-2); VENOUS O2 SATURATION 92.8 % (70-80); VENOUS PCO2 39.7 mmHg (38-52); VENOUS PH 7.351 (7.310-7.410); WHITE BLOOD COUNT 6.7 K/mm3 (4.0-10.0)
[2020-01-26 16:35] LABS: URINE APPEARANCE CLEAR; URINE BILIRUBIN NEGATIVE (NEGATIVE); URINE COLOR YELLOW; URINE GLUCOSE (UA) 3+ (NEGATIVE); URINE KETONE TRACE (NEGATIVE); URINE LEUK ESTERASE NEGATIVE (NEGATIVE); URINE NITRITE NEGATIVE (NEGATIVE); URINE PROTEIN NEGATIVE (NEGATIVE); URINE UROBILINOGEN 0.2 mg/dL (0.2-1.0)
[2020-01-26 16:50] LABS: INR 1.29 (0.83-1.09); PROTHROMBIN TIME (PATIENT) 15.8 SEC (9.7-13.0)
[2020-01-26 16:51] LABS: CHLORIDE 95 mmol/L (98-107); SODIUM 130 mmol/L (136-145)
[2020-01-26 16:54] LABS: ALBUMIN 3.4 g/dl (3.4-5.0); ANION GAP 13 MMOL/L (8-16); BLOOD UREA NITROGEN 21.8 mg/dL (7-18); CO2 23 mmol/L (21-32); MAGNESIUM 2.3 mg/dL (1.8-2.4)
[2020-01-26 16:57] LABS: CREATININE 1.7 mg/dL (0.55-1.3); SGOT/AST 11 U/L (15-37); SGPT/ALT 25 U/L (13-61)
[2020-01-26 16:58] LABS: BILIRUBIN,TOTAL 0.5 mg/dL (0.2-1); TOT PROT 6.6 g/dl (6.4-8.2)
[2020-01-26 17:00] LABS: ALK PHOS 105 U/L (45-117)
[2020-01-26 17:02] LABS: N-TERMINAL BNP 13.6 pg/ml (5-125)
[2020-01-26 17:08] LABS: GLUCOSE,RANDOM 630 mg/dL (74-106)
--- NOTE | 2020-01-26 17:26 | PDOC ---
Documentation entered by Darren Peterson SCRIBE, acting as scribe for Essie Bentley MD. Essie Bentley MD: This documentation has been prepared by the Chaz harmon Xhesika, SCRIBE, under my direction and personally reviewed by me in its entirety. I confirm that the documentation accurately reflects all work, treatment, procedures, and medical decision making performed by me. Attending Attestation - Resident Resident Name: BobbiYasmin - ED Attending Attestation I have performed the following: I have examined & evaluated the patient, The case was reviewed & discussed with the resident, I agree w/resident's findings & plan, Exceptions are as noted - HPI HPI: 01/26/20 17:09 The patient is a 59-year-old male with a past medical history significant for epilepsy, IDDM, asthma, HTN, HLD, and hypothyroidism who presents to the emergency department via private auto for hyperglycemia. The patient was noted to be hyperglycemic to the 400s. Allergies: NKDA PCP: Mc Baptiste - Physicial Exam PE: 01/26/20 17:34 Slender 59 yo male p/w hyperglycemia and some somnolence. He coming from home. head ncat neck supple lungs no wheezing cvs [id number] abdomen no rebound, no guarding skin warm and dry extremities no deformities neuro will respond to questions briefly,moves all extremities,walked into ER 01/26/20 17:37 - Medical Decision Making 01/26/20 17:26 Presents with some somnolence and elevated blood sugar. He has past medical history of HHS and is a type I diabetic, DVT, asthma, hypertension, epilepsy and hypothyroidism. He was found to have a LLE DVT in Dec and started on eliquis. 01/26/20 17:38 PSH: Urethoplasty normal lactic acid, normal pH, normal anion [place] imp hyperosmolar hyperglycemia nonketotic syndrome plan pt receiving IVF and glucose 01/26/20 22:57 pt's glucose now <300 and his electrolytes are wnl. Pt feels much better and d/c home 01/27/20 01:20 Discharge - Discharge Information Problems reviewed: Yes Clinical Impression/Diagnosis: Hyperglycemia due to diabetes mellitus Condition: Improved Disposition: HOME - Follow up/Referral Referrals: Mc Estrada MD, MD [Primary Care Provider] - - Patient Discharge Instructions Patient Printed Discharge Instructions: How to Check Your Blood Glucose, DI for Hyperglycemia -- Adult Additional Instructions: You were seen with high blood glucose. This improved with medication. However, it is extremely important that you have closer control of your blood sugar, as this can lead to blindness, kidney issues, cardiac issues, and premature . Please take your insulin as prescribed. Follow up with your primary care doctor within one week. Return to the ER if you develop new or worsening symptoms. - Post Discharge Activity
[2020-01-26] MEDS ORDERED: Insulin (LOG) Aspart 100 UNITS/ML VIAL SQ ONE (18:16)
[2020-01-26] MEDS ORDERED: LACTATED RINGERS SOLUTION 1,000 ML/1,000 ML INFUS.BAG IV STA ×2 (19:03→19:05)
[2020-01-26] MEDS ORDERED: SODIUM CHLORIDE 0.9% 500 ML INFUS.BAG IV ONE (19:09)
--- NOTE | 2020-01-26 19:13 | PDOC ---
*Physical Exam - Vital Signs Last Vital Signs Temp Pulse Resp BP Pulse Ox 98 F 92 H 15 106/54 L 96 01/26/20 15:40 01/26/20 17:39 01/26/20 17:39 01/26/20 17:39 01/26/20 17:39 ED Treatment Course - LABORATORY CBC & Chemistry Diagram: 01/26/20 16:18 01/26/20 22:18 - ADDITIONAL ORDERS Additional order review: Laboratory Results 01/26/20 01/26/20 01/26/20 18:07 16:18 16:18 PT with INR 15.80 H INR 1.29 H PTT (Actin FS) 32.0 VBG pH POC VBG pCO2 POC VBG pO2 VBG HCO3 VBG O2 Sat (Reba) VBG Base Excess Sodium Potassium Chloride Carbon Dioxide Anion Gap BUN Creatinine Est GFR (CKD-EPI)AfAm Est GFR (CKD-EPI)NonAf POC Glucometer 527 Random Glucose Calcium Magnesium Total Bilirubin AST ALT Alkaline Phosphatase Troponin I B-Natriuretic Peptide Total Protein Albumin Beta-Hydroxybutyrate Urine Color Yellow Urine Appearance Clear Urine pH 5.0 Ur Specific Wells 1.035 Urine Protein Negative Urine Glucose (UA) 3+ H Urine Ketones Trace H Urine Blood Negative Urine Nitrite Negative Urine Bilirubin Negative Urine Urobilinogen 0.2 Ur Leukocyte Esterase Negative 01/26/20 01/26/20 01/26/20 16:18 16:18 16:06 PT with INR INR PTT (Actin FS) VBG pH 7.351 POC VBG pCO2 39.7 POC VBG pO2 68.0 H VBG HCO3 21.5 L VBG O2 Sat (Reba) 92.8 H VBG Base Excess -3.7 L Sodium 130 L Potassium 4.0 Chloride 95 L Carbon Dioxide 23 Anion Gap 13 BUN 21.8 H Creatinine 1.7 H Est GFR (CKD-EPI)AfAm 49.70 Est GFR (CKD-EPI)NonAf 42.88 POC Glucometer > 600 Random Glucose 630 H* Calcium 9.0 Magnesium 2.3 Total Bilirubin 0.5 AST 11 L ALT 25 Alkaline Phosphatase 105 Troponin I < 0.02 B-Natriuretic Peptide 13.6 Total Protein 6.6 Albumin 3.4 Beta-Hydroxybutyrate 12.6 H Urine Color Urine Appearance Urine pH Ur Specific Wells Urine Protein Urine Glucose (UA) Urine Ketones Urine Blood Urine Nitrite Urine Bilirubin Urine Urobilinogen Ur Leukocyte Esterase 01/26/20 01/26/20 01/26/20 18:07 16:18 16:06 RBC 5.28 MCV 87.1 MCHC 33.5 RDW 13.8 MPV 9.2 Neutrophils % 62.6 Lymphocytes % 29.2 Monocytes % 7.1 Eosinophils % 0.6 Basophils % 0.5 POC Glucometer 527 > 600 - Medications Given in the ED: ED Medications Discontinued Medications Generic Name Dose Route Start Last Admin Trade Name Chiqui PRN Reason Stop Dose Admin Sodium Chloride 1,000 mls @ 1,000 mls/hr 01/26/20 16:01 01/26/20 16:14 Normal Saline - IV 01/26/20 17:00 1,000 mls/hr ASDIR STA Administration Insulin Aspart 12 units 01/26/20 18:16 01/26/20 18:30 Novolog SQ 01/26/20 18:17 12 units ONCE ONE Administration Medical Decision Making - Medical Decision Making 01/26/20 19:12 Received signout from day team. Repeat glucose >500. Will give another 2 liters, one of NS and one of LR. Repeat BMP and BGM after finishing both liters. Mr. Farrell reassessed, states that he feels better, just tired. Has a prescription for Novolog which he just needs to bead picker from the pharmacy. Will follow up repeat labs. 01/26/20 22:01 BGM 277. Will get BMP, bolus another 500 ccs NS. Plan to dc for further outpatient management. 01/26/20 23:14 BMP improved, Cr 1.3. Glucose <300. Will dc for further outpatient management. Discharge - Discharge Information Problems reviewed: Yes Clinical Impression/Diagnosis: Hyperglycemia due to diabetes mellitus Condition: Improved Disposition: HOME - Admission No - Follow up/Referral Referrals: Mc Estrada MD, MD [Primary Care Provider] - - Patient Discharge Instructions Patient Printed Discharge Instructions: How to Check Your Blood Glucose, DI for Hyperglycemia -- Adult Additional Instructions: You were seen with high blood glucose. This improved with medication. However, it is extremely important that you have closer control of your blood sugar, as this can lead to blindness, kidney issues, cardiac issues, and premature . Please take your insulin as prescribed. Follow up with your primary care doctor within one week. Return to the ER if you develop new or worsening symptoms. - Post Discharge Activity
[2020-01-26] MEDS ORDERED: LACTATED RINGERS SOLUTION 1000 ML INFUS.BAG IV ONE (22:02)
[2020-01-26] MEDS ORDERED: SODIUM CHLORIDE 500 ML IV STA (22:03)
[2020-01-26 22:59] LABS: POTASSIUM 4.5 mmol/L (3.5-5.1)
[2020-01-26 23:00] LABS: CALCIUM 8.7 mg/dL (8.5-10.1)
[2020-01-26 23:01] LABS: BLOOD UREA NITROGEN 18.1 mg/dL (7-18)
[2020-01-26 23:04] LABS: CREATININE 1.3 mg/dL (0.55-1.3)
[2020-01-26 23:32] VITALS: BP 133/87; PULSE 76; TEMP 98
[2020-01-27] MEDS ORDERED: Insulin (LOG) Aspart 100 UNITS/ML VIAL SQ ONE (18:16)
--- NOTE | 2020-01-28 14:35 | EKG ---
Test Reason : Blood Pressure : / mmHG Vent. Rate : 100 BPM Atrial Rate : 100 BPM P-R Int : 210 ms QRS Dur : 082 ms QT Int : 364 ms P-R-T Axes : 050 049 033 degrees QTc Int : 469 ms SINUS RHYTHM WITH 1ST DEGREE A-V BLOCK SEPTAL INFARCT , AGE UNDETERMINED ABNORMAL ECG Confirmed by MD DANIEL, FRANSISCO ([id number]) on 01/28/2020 2:35:34 PM Referred By: Confirmed By:FRANSISCO SANCHEZ MD
== END 2020-01-26 23:32 | disposition home or self-care (01) ==
LOC: JER 15:39
PROC: 3E0337Z Introduction of Electrolytic and Water Balance Substance into Peripheral Vein, Percutaneous Approach (ICD-10-PCS; principal; 2020-01-26)
DX: E11.65 Type 2 diabetes mellitus with hyperglycemia (principal)
CPT/HCPCS: 36415; 71045-TC-FY; 80048; 80053; 81003; 82010; 82803; 82962; 83735; 83880; 84484; 85025; 85610; 85730; 87086; 93005; 93010; 99285-25

== ENCOUNTER 2020-05-05 17:30 | Emergency (ER) | payer MEDICARE, OTHER ==
[2020-05-05 17:48] VITALS: TEMP 98.1; BMI 27.8
[2020-05-05] MEDS ORDERED: INSULIN REGULAR HUMAN 100 UNITS/ML *VIAL* (FOR IVP) IVPUSH ONE (17:55)
[2020-05-05] MEDS ORDERED: SODIUM CHLORIDE 1,000 ML IV STA (17:55)
[2020-05-05 19:14] LABS: BASO % 0.5 % (0-2.0); HEMATOCRIT 53.4 % (35.4-49); HEMOGLOBIN 18.1 GM/dL (11.7-16.9); LYMPH % 27.6 % (8-40); MCH 29.6 pg (25.7-33.7); MCHC 33.9 g/dl (32.0-35.9); MEAN CELL VOLUME 87.5 fl (80-96); MEAN PLT VOLUME 8.5 fl (7.5-11.1); MONO % 13.3 % (3.8-10.2); NEUT % 58.6 % (42.8-82.8); PLATELET COUNT 188 K/MM3 (134-434); RBC 6.11 M/mm3 (4.00-5.60); RDW 13.8 % (11.9-15.9); WHITE BLOOD COUNT 5.3 K/mm3 (4.0-10.0)
[2020-05-05 19:51] LABS: ALBUMIN 3.2 g/dl (3.4-5.0); ALK PHOS 86 U/L (45-117); ANION GAP 10 MMOL/L (8-16); BILIRUBIN,TOTAL 0.5 mg/dL (0.2-1); BLOOD UREA NITROGEN 15.8 mg/dL (7-18); CALCIUM 8.9 mg/dL (8.5-10.1); CHLORIDE 97 mmol/L (98-107); CO2 21 mmol/L (21-32); CREATININE 1.3 mg/dL (0.55-1.3); GLUCOSE,RANDOM 204 mg/dL (74-106); POTASSIUM 5.3 mmol/L (3.5-5.1); SGOT/AST 63 U/L (15-37); SGPT/ALT 49 U/L (13-61); SODIUM 128 mmol/L (136-145); TOT PROT 7.9 g/dl (6.4-8.2)
[2020-05-05 21:13] VITALS: BP 125/60; PULSE 88
[2020-05-05 21:47] LABS: ALBUMIN 2.9 g/dl (3.4-5.0); BLOOD UREA NITROGEN 13.5 mg/dL (7-18); CALCIUM 8.5 mg/dL (8.5-10.1)
[2020-05-05 21:50] LABS: CREATININE 1.1 mg/dL (0.55-1.3)
[2020-05-05 21:52] LABS: BILIRUBIN,TOTAL 0.7 mg/dL (0.2-1); TOT PROT 7.5 g/dl (6.4-8.2)
[2020-05-05] MEDS ORDERED: SODIUM CHLORIDE 0.9% 500 ML INFUS.BAG IV ONE ×2 (21:58→22:45)
[2020-05-05 22:19] LABS: POTASSIUM 6.7 mmol/L (3.5-5.1)
[2020-05-06 01:57] LABS: POTASSIUM 4.4 mmol/L (3.5-5.1)
[2020-05-06 01:58] LABS: CALCIUM 8.3 mg/dL (8.5-10.1)
[2020-05-06 01:59] LABS: BLOOD UREA NITROGEN 13.4 mg/dL (7-18)
== END 2020-05-06 02:43 | disposition home or self-care (01) ==
LOC: JER 17:30
PROC: 3E013VG Introduction of Insulin into Subcutaneous Tissue, Percutaneous Approach (ICD-10-PCS; principal; 2020-05-05)
PROC: 3E0337Z Introduction of Electrolytic and Water Balance Substance into Peripheral Vein, Percutaneous Approach (ICD-10-PCS; 2020-05-05)
PROC: 3E0337Z Introduction of Electrolytic and Water Balance Substance into Peripheral Vein, Percutaneous Approach (ICD-10-PCS; 2020-05-05)
DX: U07.1 COVID-19 (principal); E86.9 Volume depletion, unspecified
CPT/HCPCS: 36415; 71046-TC-FY; 80048; 80053; 82010; 82550; 82553; 82962; 84484; 85025; 93005; 93010; 99285-25; C9803; U0003

== ENCOUNTER 2020-07-28 09:17 | Emergency (ER) | payer MEDICARE, OTHER ==
[2020-07-28 09:43] VITALS: BMI 27.8
[2020-07-28] MEDS ORDERED: ONDANSETRON 4 MG/2 ML VIAL IVPUSH ONE (10:19)
[2020-07-28] MEDS ORDERED: SODIUM CHLORIDE 1,000 ML IV STA (10:19)
[2020-07-28] MEDS ORDERED: ONDANSETRON 4 MG/2 ML VIAL ONE (10:47)
[2020-07-28 11:25] LABS: PH,URINE 5.5 (5.0-8.0); URINE APPEARANCE CLEAR; URINE BILIRUBIN NEGATIVE (NEGATIVE); URINE COLOR YELLOW; URINE GLUCOSE (UA) 3+ (NEGATIVE); URINE KETONE TRACE (NEGATIVE); URINE LEUK ESTERASE NEGATIVE (NEGATIVE); URINE NITRITE NEGATIVE (NEGATIVE); URINE PROTEIN NEGATIVE (NEGATIVE); URINE UROBILINOGEN 0.2 mg/dL (0.2-1.0)
[2020-07-28 11:26] LABS: BASO % 0.4 % (0-2.0); EOS % 0.3 % (0-4.5); HEMATOCRIT 51.9 % (35.4-49); HEMOGLOBIN 17.8 GM/dL (11.7-16.9); MCH 30.6 pg (25.7-33.7); MCHC 34.3 g/dl (32.0-35.9); MEAN CELL VOLUME 89.2 fl (80-96); MONO % 7.7 % (3.8-10.2); NEUT % 68.6 % (42.8-82.8); PLATELET COUNT 214 K/MM3 (134-434); RBC 5.82 M/mm3 (4.00-5.60); WHITE BLOOD COUNT 7.9 K/mm3 (4.0-10.0)
[2020-07-28 12:22] LABS: ALBUMIN 3.7 g/dl (3.4-5.0); BILIRUBIN,TOTAL 0.6 mg/dL (0.2-1); BLOOD UREA NITROGEN 11.8 mg/dL (7-18); CALCIUM 9.8 mg/dL (8.5-10.1); CREATININE 1.3 mg/dL (0.55-1.3); TOT PROT 7.4 g/dl (6.4-8.2)
[2020-07-28] MEDS ORDERED: METOCLOPRAMIDE HCL INJECTION 10 MG/2 ML VIAL IVPB ONE (12:51)
[2020-07-28] MEDS ORDERED: MAG HYDROX/AL HYDROX/SIMETH -MYLANTA- ORAL SUSPENSION PO ONE (12:51)
[2020-07-28] MEDS ORDERED: FAMOTIDINE 20 MG TABLET PO ONE (12:51)
[2020-07-28] MEDS ORDERED: METOCLOPRAMIDE HCL INJECTION 10 MG/2 ML VIAL ONE (13:14)
[2020-07-28] MEDS ORDERED: FAMOTIDINE 20 MG TABLET ONE (13:14)
[2020-07-28] MEDS ORDERED: MAG HYDROX/AL HYDROX/SIMETH 30 ML UNIT-DOSE CUP ONE (13:15)
[2020-07-28 14:57] VITALS: BP 137/82; PULSE 84; TEMP 98.2
== END 2020-07-28 14:40 | disposition home or self-care (01) ==
LOC: JER 09:17
PROC: 3E033NZ Introduction of Analgesics, Hypnotics, Sedatives into Peripheral Vein, Percutaneous Approach (ICD-10-PCS; principal; 2020-07-28)
PROC: 3E0337Z Introduction of Electrolytic and Water Balance Substance into Peripheral Vein, Percutaneous Approach (ICD-10-PCS; 2020-07-28)
PROC: 3E033GC Introduction of Other Therapeutic Substance into Peripheral Vein, Percutaneous Approach (ICD-10-PCS; 2020-07-28)
DX: R11.2 Nausea with vomiting, unspecified (principal)
CPT/HCPCS: 36415; 80053; 81003; 82010; 83690; 85025; 93005; 93010; 96361; 96374; 96375; 99285-25

== ENCOUNTER 2020-08-01 20:54 | Emergency (ER) | payer MEDICARE, OTHER ==
[2020-08-01 21:20] VITALS: TEMP 97.4; BMI 27.8
[2020-08-01] MEDS ORDERED: carBAMazepine 200 MG TABLET PO ONE ×2 (21:47→23:56)
[2020-08-01] MEDS ORDERED: carBAMazepine 200 MG TABLET ONE (21:52)
[2020-08-01 22:12] LABS: EOS % 2.3 % (0-4.5); HEMATOCRIT 52.7 % (35.4-49); HEMOGLOBIN 17.8 GM/dL (11.7-16.9); LYMPH % 45.6 % (8-40); MCH 29.9 pg (25.7-33.7); MCHC 33.8 g/dl (32.0-35.9); MEAN CELL VOLUME 88.6 fl (80-96); MEAN PLT VOLUME 8.9 fl (7.5-11.1); NEUT % 43.1 % (42.8-82.8); PLATELET COUNT 213 K/MM3 (134-434); RBC 5.95 M/mm3 (4.00-5.60)
[2020-08-01 22:33] LABS: ALBUMIN 3.8 g/dl (3.4-5.0); CALCIUM 9.3 mg/dL (8.5-10.1)
[2020-08-01 22:34] LABS: BLOOD UREA NITROGEN 15.4 mg/dL (7-18)
[2020-08-01 22:37] LABS: CREATININE 1.4 mg/dL (0.55-1.3)
[2020-08-01 22:38] LABS: BILIRUBIN,TOTAL 0.6 mg/dL (0.2-1); TOT PROT 7.9 g/dl (6.4-8.2)
[2020-08-01] MEDS ORDERED: SODIUM CHLORIDE 1,000 ML IV STA (22:48)
[2020-08-01 23:51] LABS: PH,URINE 6.5 (5.0-8.0); URINE APPEARANCE CLEAR; URINE BILIRUBIN NEGATIVE (NEGATIVE); URINE COLOR YELLOW; URINE GLUCOSE (UA) 3+ (NEGATIVE); URINE KETONE NEGATIVE (NEGATIVE); URINE LEUK ESTERASE NEGATIVE (NEGATIVE); URINE NITRITE NEGATIVE (NEGATIVE); URINE PROTEIN NEGATIVE (NEGATIVE); URINE UROBILINOGEN 0.2 mg/dL (0.2-1.0)
[2020-08-01] MEDS ORDERED: INSULIN REGULAR HUMAN 100 UNITS/ML *VIAL SQ ONE (23:58)
[2020-08-02] MEDS ORDERED: carBAMazepine 200 MG TABLET ONE (00:30)
[2020-08-02 00:57] VITALS: BP 118/95; PULSE 80
== END 2020-08-02 01:19 | disposition home or self-care (01) ==
LOC: JER 20:54
PROC: 3E0337Z Introduction of Electrolytic and Water Balance Substance into Peripheral Vein, Percutaneous Approach (ICD-10-PCS; principal; 2020-08-01)
DX: R56.9 Unspecified convulsions (principal)
CPT/HCPCS: 36415; 71045-TC-FY; 80053; 80156; 81003; 85025; 87086; 93005; 93010; 96360; 99284-25

== ENCOUNTER 2021-05-30 12:59 | Emergency (ER) | payer MEDICARE, OTHER ==
[2021-05-30 13:10] VITALS: BP 114/74; PULSE 85; TEMP 98; BMI 26.4
[2021-05-30 14:16] LABS: URINE APPEARANCE CLEAR; URINE BILIRUBIN NEGATIVE (NEGATIVE); URINE COLOR YELLOW; URINE GLUCOSE (UA) 3+ (NEGATIVE); URINE KETONE NEGATIVE (NEGATIVE); URINE LEUK ESTERASE NEGATIVE (NEGATIVE); URINE NITRITE NEGATIVE (NEGATIVE); URINE PROTEIN NEGATIVE (NEGATIVE); URINE UROBILINOGEN 0.2 mg/dL (0.2-1.0)
[2021-05-30 15:17] LABS: CALCIUM 9.3 mg/dL (8.5-10.1)
[2021-05-30 15:18] LABS: ALBUMIN 3.8 g/dl (3.4-5.0); BASO % 0.7 % (0-2.0); BLOOD UREA NITROGEN 21.5 mg/dL (7-18); EOS % 2.4 % (0-4.5); HEMATOCRIT 49.6 % (35.4-49); HEMOGLOBIN 16.4 GM/dL (11.7-16.9); MCH 29.6 pg (25.7-33.7); MCHC 33.1 g/dl (32.0-35.9); MEAN CELL VOLUME 89.4 fl (80-96); MEAN PLT VOLUME 7.3 fl (7.5-11.1); MONO % 9.1 % (3.8-10.2); NEUT % 50.8 % (42.8-82.8); PLATELET COUNT 247 10^3/uL (134-434); RBC 5.55 M/mm3 (4.00-5.60); RDW 14.3 % (11.9-15.9); WHITE BLOOD COUNT 6.4 K/mm3 (4.0-10.0)
[2021-05-30 15:22] LABS: BILIRUBIN,TOTAL 0.3 mg/dL (0.2-1); TOT PROT 6.8 g/dl (6.4-8.2)
== END 2021-05-30 17:21 | disposition home or self-care (01) ==
LOC: JER 12:59
DX: G90.09 Other idiopathic peripheral autonomic neuropathy (principal)
CPT/HCPCS: 36415; 80053; 81003; 82607; 85025; 87086; 99283-25

== ENCOUNTER 2021-09-07 16:14 | Emergency (ER) | payer MEDICARE, OTHER ==
[2021-09-07 16:26] VITALS: BP 97/73; PULSE 111; TEMP 98.2; BMI 27.1
[2021-09-07 19:27] LABS: BASO % 0.3 % (0-2.0); EOS % 2.3 % (0-4.5); HEMATOCRIT 49.7 % (35.4-49); HEMOGLOBIN 16.5 GM/dL (11.7-16.9); LYMPH % 26.8 % (8-40); MCH 29.6 pg (25.7-33.7); MCHC 33.2 g/dl (32.0-35.9); MEAN CELL VOLUME 89.2 fl (80-96); MEAN PLT VOLUME 8.3 fl (7.5-11.1); MONO % 9.1 % (3.8-10.2); NEUT % 61.5 % (42.8-82.8); PLATELET COUNT 224 10^3/uL (134-434); RBC 5.57 M/mm3 (4.00-5.60); RDW 13.9 % (11.9-15.9); WHITE BLOOD COUNT 6.7 K/mm3 (4.0-10.0)
[2021-09-07 19:43] LABS: CALCIUM 9.6 mg/dL (8.5-10.1)
[2021-09-07 19:44] LABS: BLOOD UREA NITROGEN 13.8 mg/dL (7-18); MAGNESIUM 2.3 mg/dL (1.8-2.4)
[2021-09-07 19:47] LABS: PHOSPHOROUS 2.6 mg/dL (2.5-4.9)
[2021-09-07 19:48] LABS: TOT PROT 6.9 g/dl (6.4-8.2)
[2021-09-07 19:49] LABS: BILIRUBIN,TOTAL 0.2 mg/dL (0.2-1)
== END 2021-09-07 20:31 | disposition home or self-care (01) ==
LOC: JER 16:14
DX: R06.2 Wheezing (principal)
CPT/HCPCS: 36415; 71045-TC-FY; 80053; 83735; 84100; 84484; 85025; 93005; 93010; 99285-25

== ENCOUNTER 2021-09-20 19:00 | Emergency (ER) | payer OTHER ==
[2021-09-20 19:36] VITALS: BP 101/62; PULSE 62; TEMP 98.8; BMI 27.1
[2021-09-20 21:44] LABS: BASO % 0.3 % (0-2.0); EOS % 0.7 % (0-4.5); HEMOGLOBIN 15.8 GM/dL (11.7-16.9); LYMPH % 32.8 % (8-40); MCH 28.7 pg (25.7-33.7); MCHC 32.3 g/dl (32.0-35.9); MEAN CELL VOLUME 88.9 fl (80-96); MEAN PLT VOLUME 7.3 fl (7.5-11.1); MONO % 8.1 % (3.8-10.2); NEUT % 58.1 % (42.8-82.8); PLATELET COUNT 227 10^3/uL (134-434); RBC 5.51 M/mm3 (4.00-5.60); RDW 14.4 % (11.9-15.9); WHITE BLOOD COUNT 7.8 K/mm3 (4.0-10.0)
[2021-09-20 22:04] LABS: CALCIUM 9.5 mg/dL (8.5-10.1)
[2021-09-20 22:05] LABS: ALBUMIN 4.2 g/dl (3.4-5.0); BLOOD UREA NITROGEN 22.8 mg/dL (7-18)
[2021-09-20 22:08] LABS: CREATININE 1.3 mg/dL (0.55-1.3)
[2021-09-20 22:09] LABS: BILIRUBIN,TOTAL 0.4 mg/dL (0.2-1); TOT PROT 7.3 g/dl (6.4-8.2)
== END 2021-09-21 00:10 | disposition home or self-care (01) ==
LOC: JER 19:00
DX: R06.02 Shortness of breath (principal)
CPT/HCPCS: 36415; 80053; 84484; 85025; 93005; 93010; 99284-25

== ENCOUNTER 2022-11-20 20:36 | Emergency (ER) | payer OTHER ==
[2022-11-20 20:51] VITALS: BP 109/79; PULSE 89; RESP 19; TEMP 98.6; BMI 27.8
== END 2022-11-20 23:18 | disposition home or self-care (01) ==
LOC: JERFT 20:36
DX: R09.81 Nasal congestion (principal); M79.10 Myalgia, unspecified site; R53.81 Other malaise; J06.9 Acute upper respiratory infection, unspecified; Z20.822 Contact with and (suspected) exposure to COVID-19
CPT/HCPCS: 0241U-QW; 99283-25

== ENCOUNTER 2023-06-25 19:16 | Inpatient (IN) | payer OTHER ==
[2023-06-25 19:22] VITALS: BMI 27.8
[2023-06-25] MEDS: LACTATED RINGERS SOLUTION 1000 ML INFUS.BAG IV ONE (22:13)
[2023-06-25] MEDS ORDERED: ACETAMINOPHEN 500 MG TABLET (FP) ONE (22:15)
[2023-06-25 22:20] LABS: BASO % 0.5 % (0-2.0); EOS % 0.3 % (0-4.5); HEMATOCRIT 52.5 % (35.4-49); HEMOGLOBIN 17.3 GM/dL (11.7-16.9); LYMPH % 13.7 % (8-40); MCHC 32.9 g/dl (32.0-35.9); MEAN CELL VOLUME 87.9 fl (80-96); MEAN PLT VOLUME 8.2 fl (7.5-11.1); MONO % 8.8 % (3.8-10.2); NEUT % 76.7 % (42.8-82.8); PLATELET COUNT 221 10^3/uL (134-434); RBC 5.97 M/mm3 (4.00-5.60); RDW 14.4 % (11.9-15.9); WHITE BLOOD COUNT 13.3 K/mm3 (4.0-10.0)
[2023-06-25] MEDS: ACETAMINOPHEN 500 MG TABLET (FP) PO ONE (22:21)
[2023-06-25 22:38] LABS: CHLORIDE 97 mmol/L (98-107); POTASSIUM 4.7 mmol/L (3.5-5.1); SODIUM 133 mmol/L (136-145)
[2023-06-25 22:40] LABS: CALCIUM 9.9 mg/dL (8.5-10.1)
[2023-06-25 22:41] LABS: ALBUMIN 3.7 g/dl (3.4-5.0); ANION GAP 10 mmol/L (4-13); BLOOD UREA NITROGEN 16.8 mg/dL (7-18); CO2 26 mmol/L (21-32)
[2023-06-25 22:44] LABS: CREATININE 1.3 mg/dL (0.55-1.3); SGOT/AST 8 U/L (15-37); SGPT/ALT 18 U/L (13-61)
[2023-06-25 22:45] LABS: BILIRUBIN,TOTAL 0.7 mg/dL (0.2-1)
[2023-06-25 22:46] LABS: TOT PROT 7.8 g/dl (6.4-8.2)
[2023-06-25 22:47] LABS: ALK PHOS 104 U/L (45-117)
[2023-06-25 22:52] LABS: GLUCOSE,RANDOM 428 mg/dL (74-106)
[2023-06-25] MEDS ORDERED: VANCOMYCIN 1 GRAM (PRE-DOCKED) 1,000 MG/250 ML BAG IVPB ONE ×2 (23:35→23:38)
[2023-06-25] MEDS: VANCOMYCIN 1,000 MG in DEXTROSE 5%-WATER - 250 ML IVPB ONE (23:44)
[2023-06-26] MEDS ORDERED: ACETAMINOPHEN INJECTION 100 ML IVPB ONE (03:15)
[2023-06-26] MEDS ORDERED: PIPERACILLIN/TAZOB 3.375 GM 3.375 GM/50 ML BAG IVPB ONE ×2 (03:15→09:53)
[2023-06-26] MEDS: ACETAMINOPHEN 1000 MG/100 ML BAG IVPB PRN (03:27)
[2023-06-26] MEDS: PIPERACILLIN/TAZOB 3.375 GM 3.375 GM in DEXTROSE 5%-WATER - 50 ML IVPB SCH (03:28)
[2023-06-26] MEDS: INSULIN (NOVOLOG) ASPART 100 UNITS/ML 10ML VIAL SQ ONE (03:30)
[2023-06-26] MEDS: GABAPENTIN 300 MG CAPSULE PO SCH (07:08)
[2023-06-26] MEDS: LEVOTHYROXINE NA 25 MCG TABLET (FP) PO SCH (07:08)
[2023-06-26] MEDS ORDERED: LEVOTHYROXINE NA 25 MCG TABLET (FP) ONE (07:10)
[2023-06-26] MEDS ORDERED: GABAPENTIN 300 MG CAPSULE ONE (07:10)
[2023-06-26 07:17] LABS: CALCIUM 9.2 mg/dL (8.5-10.1)
[2023-06-26 07:18] LABS: ALBUMIN 3.2 g/dl (3.4-5.0); BLOOD UREA NITROGEN 14.8 mg/dL (7-18); HEMATOCRIT 49.1 % (35.4-49); HEMOGLOBIN 16.5 GM/dL (11.7-16.9); MAGNESIUM 2.5 mg/dL (1.8-2.4); MCH 29.3 pg (25.7-33.7); MCHC 33.6 g/dl (32.0-35.9); MEAN CELL VOLUME 87.2 fl (80-96); MEAN PLT VOLUME 8.5 fl (7.5-11.1); PLATELET COUNT 226 10^3/uL (134-434); RBC 5.63 M/mm3 (4.00-5.60); RDW 13.9 % (11.9-15.9); WHITE BLOOD COUNT 12.7 K/mm3 (4.0-10.0)
[2023-06-26 07:20] LABS: CHOLESTEROL 118 mg/dL (50-200)
[2023-06-26 07:21] LABS: CREATININE 1.1 mg/dL (0.55-1.3); LDL CHOLESTEROL (ONLY SJRH) 47 mg/dL (5-100); PHOSPHOROUS 2.4 mg/dL (2.5-4.9)
[2023-06-26 07:22] LABS: BILIRUBIN,TOTAL 0.6 mg/dL (0.2-1)
[2023-06-26 07:23] LABS: HDL CHOLESTEROL 60 mg/dL (40-60)
[2023-06-26] MEDS: INSULIN ASPART SLIDING SCALE (NOVOLOG) 1 VIAL SQ SCH (07:30)
[2023-06-26] MEDS ORDERED: ROSUVASTATIN CA 20 MG TABLET ONE (09:51)
[2023-06-26] MEDS ORDERED: FAMOTIDINE 20 MG TABLET ONE (09:51)
[2023-06-26] MEDS ORDERED: APIXABAN 5 MG TABLET ONE (09:51)
[2023-06-26] MEDS ORDERED: carBAMazepine 200 MG TABLET ONE (09:51)
[2023-06-26] MEDS ORDERED: ASPIRIN 81 MG CHEWABLE TABLETS PO SCH (10:00)
[2023-06-26] MEDS ORDERED: ENOXAPARIN NA (PORCINE) 40 MG/0.4 ML DISP.SYRIN SQ SCH (10:00)
[2023-06-26] MEDS: APIXABAN 5 MG TABLET PO SCH (10:46)
[2023-06-26] MEDS: ROSUVASTATIN CA 20 MG TABLET PO SCH (10:46)
[2023-06-26] MEDS: FAMOTIDINE 20 MG TABLET PO SCH (10:46)
[2023-06-26] MEDS: carBAMazepine 200 MG TABLET PO SCH (10:46)
[2023-06-26] MEDS: INSULIN (NOVOLOG MIX 70/30) 100 UNITS/ML MDV SQ SCH (10:53)
[2023-06-26] MEDS: VANCOMYCIN/WATER 1250 MG 1,250 MG/250 ML BAG IVPB SCH (16:37)
[2023-06-26] MEDS: PIPERACILLIN/TAZOB 4.5 GM 4.5 GM in DEXTROSE 5%-WATER 100 ML IVPB SCH (19:25)
[2023-06-27] MEDS ORDERED: PIPERACILLIN/TAZOB 3.375 GM 3.375 GM in DEXTROSE 5%-WATER - 50 ML IVPB SCH (03:00)
[2023-06-27] MEDS: DEXTROSE 5%-NORMAL SALINE 1,000 ML IV SCH ×2 (08:54→12:33)
[2023-06-27] MEDS: ACETAMINOPHEN 1000 MG/100 ML BAG IVPB ONE (08:55)
[2023-06-27] MEDS ORDERED: PROMETHAZINE HCL 25 MG/1 ML VIAL IVPB PRN ×2 (09:45→11:42)
[2023-06-27] MEDS ORDERED: ONDANSETRON 4 MG/2 ML VIAL IVPUSH PRN ×2 (09:45→11:42)
[2023-06-27] MEDS ORDERED: MIDAZOLAM HCL 2 MG/2 ML SINGLE DOSE VIAL ONE (09:58)
[2023-06-27] MEDS ORDERED: LIDOCAINE HCL/PF 2% SDV 5ML VIAL ONE (09:58)
[2023-06-27] MEDS ORDERED: FENTANYL CITRATE/PF 50 MCG/ML VIAL ONE ×2 (09:58→11:44)
[2023-06-27] MEDS ORDERED: PROPOFOL 20 ML ONE (09:58)
[2023-06-27] MEDS: PIPERACILLIN/TAZOBACTAM 4.5 GM VIAL IVPB ONE (10:15)
[2023-06-27] MEDS ORDERED: FENTANYL CITRATE/PF 50 MCG/ML VIAL IVPUSH PRN (11:42)
[2023-06-27] MEDS: GABAPENTIN 300 MG CAPSULE PO SCH (13:20)
[2023-06-27] MEDS: carBAMazepine 200 MG TABLET PO SCH (13:21)
[2023-06-27] MEDS: PIPERACILLIN/TAZOB 4.5 GM 4.5 GM in DEXTROSE 5%-WATER 100 ML IVPB SCH (13:56)
[2023-06-27] MEDS: LACTATED RINGERS SOLUTION 1,000 ML IV SCH (13:57)
[2023-06-27] MEDS: VANCOMYCIN/WATER 1250 MG 1,250 MG/250 ML BAG IVPB SCH (14:09)
[2023-06-27] MEDS: INSULIN ASPART SLIDING SCALE (NOVOLOG) 1 VIAL SQ SCH (17:17)
[2023-06-27] MEDS: INSULIN (NOVOLOG MIX 70/30) 100 UNITS/ML MDV SQ SCH (17:18)
[2023-06-27] MEDS ORDERED: ROSUVASTATIN CA 20 MG TABLET PO SCH (22:00)
[2023-06-27] MEDS: ROSUVASTATIN CA 20 MG TABLET PO SCH (22:12)
[2023-06-28] MEDS ORDERED: PIPERACILLIN/TAZOBACTAM 4.5 GM VIAL IVPB ONE (01:45)
[2023-06-28] MEDS: ACETAMINOPHEN 1000 MG/100 ML BAG IVPB PRN (01:55)
[2023-06-28] MEDS: LEVOTHYROXINE NA 25 MCG TABLET (FP) PO SCH (06:01)
[2023-06-28 10:01] LABS: HEMATOCRIT 48.6 % (35.4-49); HEMOGLOBIN 16.2 GM/dL (11.7-16.9); MCH 28.8 pg (25.7-33.7); MCHC 33.2 g/dl (32.0-35.9); MEAN CELL VOLUME 86.5 fl (80-96); MEAN PLT VOLUME 8.1 fl (7.5-11.1); PLATELET COUNT 236 10^3/uL (134-434); RBC 5.62 M/mm3 (4.00-5.60); RDW 13.8 % (11.9-15.9); WHITE BLOOD COUNT 7.9 K/mm3 (4.0-10.0)
[2023-06-28] MEDS: FAMOTIDINE 20 MG TABLET PO SCH (10:04)
[2023-06-28] MEDS: morphine SULFATE 4 MG/ML VIAL IVPUSH PRN (10:04)
[2023-06-28 10:42] LABS: POTASSIUM 3.9 mmol/L (3.5-5.1)
[2023-06-28 10:49] LABS: ALBUMIN 2.9 g/dl (3.4-5.0)
[2023-06-28 10:51] LABS: CREATININE 0.9 mg/dL (0.55-1.3)
[2023-06-28 10:54] LABS: BLOOD UREA NITROGEN 11.4 mg/dL (7-18); CALCIUM 9.1 mg/dL (8.5-10.1)
[2023-06-28 10:56] LABS: TOT PROT 6.7 g/dl (6.4-8.2)
[2023-06-28 11:02] LABS: BILIRUBIN,TOTAL 0.4 mg/dL (0.2-1)
[2023-06-29 06:02] VITALS: TEMP 98.1
[2023-06-29] MEDS ORDERED: INSULIN ASPART SLIDING SCALE (NOVOLOG) 1 VIAL SQ ONE (06:28)
[2023-06-29 14:42] VITALS: BP 137/79; PULSE 100; RESP 18
== END 2023-06-29 15:00 | disposition home or self-care (01) | DRG 603 ==
LOC: JER 19:16 → JERBED 20:41 → OBSVTOIN 06-26 01:12 → J5S 06-26 11:13
PROVIDERS: ADMIT Internal Medicine; ATTEND Family Medicine
PROC: 0J970ZZ Drainage of Back Subcutaneous Tissue and Fascia, Open Approach (ICD-10-PCS; principal; 2023-06-27 11:00)
DX: L02.219 Cutaneous abscess of trunk, unspecified (principal); L03.311 Cellulitis of abdominal wall; G40.909 Epilepsy, unspecified, not intractable, without status epilepticus; E11.65 Type 2 diabetes mellitus with hyperglycemia; E03.9 Hypothyroidism, unspecified; Z91.148 Patient's other noncompliance with medication regimen for other reason; I10 Essential (primary) hypertension; J45.909 Unspecified asthma, uncomplicated; E78.5 Hyperlipidemia, unspecified; G57.90 Unspecified mononeuropathy of unspecified lower limb; E11.40 Type 2 diabetes mellitus with diabetic neuropathy, unspecified; A49.02 Methicillin resistant Staphylococcus aureus infection, unspecified site
CPT/HCPCS: 36415; 71045-TC-FY; 76705-TC; 80053; 80061; 82962; 83036; 83735; 84100; 85025; 85027; 86618; 87040; 87070; 87081; 87186; 87205; 93005; 93010; 94010; 94760; 97116-GP; 97161-GP; 99285-25; G0378; J0131

== ENCOUNTER 2024-02-14 14:09 | Observation (INO) | payer OTHER ==
[2024-02-14 15:26] VITALS: BMI 27.1
[2024-02-14] MEDS: SODIUM CHLORIDE 0.9% 500 ML INFUS.BAG IV ONE ×3 (15:27→16:54)
[2024-02-14 15:51] LABS: BASO % 0.6 % (0-2.0); EOS % 0.7 % (0-4.5); HEMATOCRIT 45.9 % (35.4-49); HEMOGLOBIN 15.6 GM/dL (11.7-16.9); LYMPH % 38.8 % (8-40); MCH 29.2 pg (25.7-33.7); MCHC 33.9 g/dl (32.0-35.9); MEAN CELL VOLUME 86.2 fl (80-96); MEAN PLT VOLUME 9.9 fl (7.5-11.1); NEUT % 50.9 % (42.8-82.8); PLATELET COUNT 241 10^3/uL (134-434); RBC 5.33 M/mm3 (4.00-5.60); RDW 13.3 % (11.9-15.9); WHITE BLOOD COUNT 4.7 K/mm3 (4.0-10.0)
[2024-02-14 15:52] LABS: VENOUS BASE EXCESS -0.5 mmol/L (-2-2); VENOUS O2 SATURATION 85.4 % (70-80); VENOUS PCO2 44.7 mmHg (38-52); VENOUS PH 7.368 (7.310-7.410)
[2024-02-14 16:02] LABS: URINE APPEARANCE CLEAR; URINE BILIRUBIN NEGATIVE (NEGATIVE); URINE COLOR YELLOW; URINE GLUCOSE (UA) 3+ (NEGATIVE); URINE KETONE NEGATIVE (NEGATIVE); URINE LEUK ESTERASE NEGATIVE (NEGATIVE); URINE NITRITE NEGATIVE (NEGATIVE); URINE PROTEIN NEGATIVE (NEGATIVE); URINE UROBILINOGEN 0.2 mg/dL (0.2-1.0)
[2024-02-14 16:14] LABS: CHLORIDE 92 mmol/L (98-107); SODIUM 122 mmol/L (136-145)
[2024-02-14 16:16] LABS: CALCIUM 9.6 mg/dL (8.5-10.1)
[2024-02-14 16:18] LABS: ALBUMIN 3.4 g/dl (3.4-5.0); BLOOD UREA NITROGEN 18.7 mg/dL (7-18); CO2 26 mmol/L (21-32)
[2024-02-14 16:21] LABS: CREATININE 1.5 mg/dL (0.55-1.3)
[2024-02-14 16:22] LABS: TOT PROT 7.6 g/dl (6.4-8.2)
[2024-02-14 16:24] LABS: ALK PHOS 144 U/L (45-117)
[2024-02-14 16:27] LABS: ANION GAP 4 mmol/L (4-13); GLUCOSE,RANDOM 625 mg/dL (74-106); POTASSIUM 9.8 mmol/L (3.5-5.1); SGOT/AST 100 U/L (15-37); SGPT/ALT 36 U/L (13-61)
[2024-02-14 17:04] LABS: BILIRUBIN,TOTAL < 0.1 mg/dL (0.2-1)
[2024-02-14] MEDS: INSULIN REGULAR HUMAN 100 UNITS/ML *VIAL SQ ONE (18:18)
[2024-02-14 18:40] LABS: POTASSIUM 4.4 mmol/L (3.5-5.1)
[2024-02-14 18:41] LABS: CALCIUM 8.9 mg/dL (8.5-10.1)
[2024-02-14 18:42] LABS: BLOOD UREA NITROGEN 15.1 mg/dL (7-18); MAGNESIUM 2.1 mg/dL (1.8-2.4)
[2024-02-14 18:45] LABS: CREATININE 1.3 mg/dL (0.55-1.3)
[2024-02-14] MEDS: SODIUM CHLORIDE 1,000 ML IV SCH (21:22)
[2024-02-14] MEDS ORDERED: INSULIN ASPART SLIDING SCALE (NOVOLOG) 1 VIAL SQ ONE ×2 (22:08→22:29)
[2024-02-14] MEDS: INSULIN ASPART SLIDING SCALE (NOVOLOG) 1 VIAL SQ SCH (22:34)
[2024-02-15] MEDS: carBAMazepine 200 MG TABLET PO SCH (02:55)
[2024-02-15 06:40] LABS: BASO % 0.4 % (0-2.0); EOS % 2.1 % (0-4.5); HEMATOCRIT 42.4 % (35.4-49); HEMOGLOBIN 14.1 GM/dL (11.7-16.9); MCH 28.9 pg (25.7-33.7); MCHC 33.2 g/dl (32.0-35.9); MEAN PLT VOLUME 8.8 fl (7.5-11.1); MONO % 6.5 % (3.8-10.2); PLATELET COUNT 185 10^3/uL (134-434); RBC 4.88 M/mm3 (4.00-5.60); RDW 13.1 % (11.9-15.9); WHITE BLOOD COUNT 5.6 K/mm3 (4.0-10.0)
[2024-02-15 06:41] LABS: POTASSIUM 3.8 mmol/L (3.5-5.1)
[2024-02-15 06:42] LABS: BLOOD UREA NITROGEN 12.7 mg/dL (7-18); CALCIUM 8.5 mg/dL (8.5-10.1)
[2024-02-15] MEDS ORDERED: GABAPENTIN 300 MG CAPSULE ONE ×2 (08:09→13:46)
[2024-02-15] MEDS ORDERED: INSULIN ASPART SLIDING SCALE (NOVOLOG) 1 VIAL SQ ONE (08:09)
[2024-02-15] MEDS ORDERED: metFORMIN HCL 500 MG TABLET (FP) ONE ×2 (08:09→16:38)
[2024-02-15] MEDS: metFORMIN HCL 500 MG TABLET (FP) PO SCH (08:31)
[2024-02-15] MEDS: GABAPENTIN 300 MG CAPSULE PO SCH (08:31)
[2024-02-15] MEDS ORDERED: FAMOTIDINE 20 MG TABLET ONE (09:53)
[2024-02-15] MEDS ORDERED: APIXABAN 5 MG TABLET ONE (09:53)
[2024-02-15] MEDS ORDERED: carBAMazepine 200 MG TABLET ONE (09:53)
[2024-02-15] MEDS: FAMOTIDINE 20 MG TABLET PO SCH (09:58)
[2024-02-15] MEDS: APIXABAN 5 MG TABLET PO SCH (09:58)
[2024-02-15 22:03] VITALS: RESP 18
[2024-02-15] MEDS: PANTOPRAZOLE 40 MG TABLET PO ONE (22:30)
[2024-02-15] MEDS: INSULIN (LEVEMIR) 100 UNITS/ML UNITS SQ SCH (22:33)
[2024-02-15] MEDS: ROSUVASTATIN CA 20 MG TABLET PO SCH (22:55)
[2024-02-16] MEDS: LEVOTHYROXINE NA 25 MCG TABLET (FP) PO SCH (06:11)
[2024-02-16] MEDS ORDERED: INSULIN (LEVEMIR) 100 UNITS/ML UNITS SQ SCH (12:19)
[2024-02-16] MEDS: INSULIN (LEVEMIR) 100 UNITS/ML UNITS SQ SCH (22:12)
[2024-02-17] MEDS: EMPAGLIFLOZIN (JARDIANCE) 10 MG TABLET PO SCH (09:02)
[2024-02-18 01:39] VITALS: TEMP 97.7
[2024-02-18 14:33] VITALS: BP 121/92; PULSE 79
== END 2024-02-18 15:38 | disposition home or self-care (01) ==
LOC: JER 14:09 → JERBED 19:24 → J7W 02-15 14:40 → JERBED 02-15 14:40 → J7W 02-15 18:38
PROVIDERS: ADMIT Internal Medicine; ATTEND Family Medicine
PROC: 3E013VG Introduction of Insulin into Subcutaneous Tissue, Percutaneous Approach (ICD-10-PCS; principal; 2024-02-14)
PROC: 3E0337Z Introduction of Electrolytic and Water Balance Substance into Peripheral Vein, Percutaneous Approach (ICD-10-PCS; 2024-02-14)
DX: R55 Syncope and collapse (principal); E11.00 Type 2 diabetes mellitus with hyperosmolarity without nonketotic hyperglycemic-hyperosmolar coma (NKHHC); G40.909 Epilepsy, unspecified, not intractable, without status epilepticus; E03.9 Hypothyroidism, unspecified; Z86.718 Personal history of other venous thrombosis and embolism; E11.40 Type 2 diabetes mellitus with diabetic neuropathy, unspecified; I10 Essential (primary) hypertension; Z79.01 Long term (current) use of anticoagulants
CPT/HCPCS: 36415; 71045-TC-FY; 80048; 80053; 80156; 81003; 82010; 82803; 82962; 83036; 83605; 83735; 85025; 87086; 93005; 93010; 93306-TC; 96372; 99285-25; G0378

== ENCOUNTER 2024-02-21 12:43 | Emergency (ER) | payer OTHER ==
[2024-02-21 13:13] VITALS: BP 99/62; PULSE 79; RESP 18; TEMP 97.7; BMI 24.4
[2024-02-21] MEDS ORDERED: ACETAMINOPHEN 325 MG TABLET (FP) ONE (14:21)
[2024-02-21] MEDS ORDERED: LIDOCAINE 4% PATCH TP ONE (14:21)
[2024-02-21] MEDS: ACETAMINOPHEN 325 MG TABLET (FP) PO ONE ×2 (14:30→14:42)
[2024-02-21] MEDS: LIDOCAINE 4% PATCH TP ONE (14:42)
[2024-02-21] MEDS ORDERED: LIDOCAINE PATCH REMOVAL MC SCH (22:00)
== END 2024-02-21 18:37 | disposition home or self-care (01) ==
LOC: JER 12:43
DX: S83.91XA Sprain of unspecified site of right knee, initial encounter (principal); M17.11 Unilateral primary osteoarthritis, right knee; X58.XXXA Exposure to other specified factors, initial encounter
CPT/HCPCS: 73562-TC-RT-FY; 82962; 99284-25